=== PATIENT | female | born 1955 | race Caucasian/White ===

== ENCOUNTER 2017-10-03 20:31 | Inpatient (IN) | payer MEDICAID ==
[~2017-10-03] VITALS: Ht 154.9 cm; Wt 74.6 kg
--- NOTE | 2017-10-03 21:08 | Emergency Room Report ---
History of Present Illness General Chief Complaint: Female Urogenital Problems Source: Patient Present Illness HPI Is a 62-year-old female with history of fibromyalgia. She presents with chief complaint of feeling sick. This been ongoing for over 5 weeks. She complaining of hurting all over. Increasing pain. Said she hasn't eaten anything all day. No chest pain. No nausea no vomiting. Also complaining of fluid in her legs. She was given doxycycline and finished that off already. She's been taking multitude of vitamins and stpa-rcu-arzeaue supplements based on the rectum patient from her [facility]. No fever or chills. No nausea no vomiting. No shortness of breath. Allergies: Coded Allergies: UNABLE TO ASSESS (Unverified , 10/03/17) Patient History Past Medical History: see triage record, old chart reviewed Past Surgical History: other Social History: Denies: smoking Now: No Immunizations: other Reviewed Nursing Documentation: PMH: Agreed; PSxH: Agreed Nursing Documentation-PMH Past Medical History: No Stated History Review of Systems Constitutional: Reports: weakness Eye: Denies: eye pain, blurred vision ENT: Denies: ear pain, nose congestion, throat swelling Respiratory: Denies: cough, shortness of breath Cardiovascular: Denies: chest pain, palpitations Gastrointestinal: Denies: abdominal pain, diarrhea, nausea, vomiting Musculoskeletal: Denies: back pain, joint pain Skin: Denies: rash Neurological: Denies: headache, numbness Endocrine: Denies: increased thirst, increased urine Hematologic/Lymphatic: Denies: easy bruising All Other Systems: negative except mentioned in HPI Physical Exam Vital Signs Date Time Temp Pulse Resp B/P (MAP) Pulse Ox O2 Delivery O2 Flow Rate FiO2 10/03/17 20:45 97.8 113 18 176/91 94 Room Air 97.9 vitals with high blood pressure Sp02 EP Interpretation: reviewed, normal General Appearance: well appearing, no apparent distress, alert Head: normocephalic, atraumatic Eyes: bilateral eye PERRL, bilateral eye EOMI, bilateral eye scleral icterus ENT: hearing grossly normal, normal pharynx Neck: full range of motion, supple, no meningismus Respiratory: chest non-tender, lungs clear, normal breath sounds Cardiovascular #1: regular rate, rhythm, no murmur Gastrointestinal: normal bowel sounds, non tender, no mass, no organomegaly, no bruit, non-distended Musculoskeletal: back normal, gait/station normal, normal range of motion, swelling - 1+ pitting edema bilaterally Neurologic: alert, oriented x3 Psychiatric: anxious Skin: warm/dry Medical Decision Making Diagnostic Impression: Primary Impression: Acute exacerbation of CHF (congestive heart failure) Qualified Codes: I50.9 - Heart failure, unspecified Additional Impressions: UTI (urinary tract infection) Qualified Codes: N30.00 - Acute cystitis without hematuria New onset type 2 diabetes mellitus Proteinuria Qualified Codes: R80.9 - Proteinuria, unspecified Anasarca Jaundice ER Course Patient presents with increasing edema consistent with CHF. He also has new- onset diabetes. Troponin negative. Has been ongoing for several weeks. I also noticed that her eyes are very icterus. LFTs abnormal. She has no pain. CT scan pending. This may be secondary to gallbladder mass/tumor or pancreatic cancer. I discussed the case with Dr. Flores who will admit. Lab Results Impression labs with elevated glucose and BNP EKG Diagnostic Results Rate: tachycardiac Rhythm: NSR ST Segments: no acute changes Rhythm Strip Diag. Results Rhythm Strip Time: 00:02 EP Interpretation: yes Rate: 100 Rhythm: NSR, no PVC's, no ectopy Chest X-Ray Diagnostic Results Chest X-Ray Diagnostic Results : Chest X-Ray Ordered: Yes # of Views/Limited/Complete: 1 View Indication: Shortness of Breath EP Interpretation: Yes Interpretation: no consolidation, no effusion, no pneumothorax, other - vasc congestion Impression: Other - chf CT/MRI/US Diagnostic Results CT/MRI/US Diagnostic Results : Imaging Test Ordered: ct ABDOMEN AND PELVIS Impression Read by radiologist. Bilateral pleural effusion. Anasarca. Last Vital Signs Date Time Temp Pulse Resp B/P (MAP) Pulse Ox O2 Delivery O2 Flow Rate FiO2 10/03/17 20:45 97.8 113 18 176/91 94 Room Air 97.9 Status: improved Disposition: ADMITTED INPATIENT Condition: Serious Scripts No Active Prescriptions or Reported Meds CAROL ANN NGUYEN M.D. Oct 03, 2017 21:08
[2017-10-03 21:30] VITALS: BP 143/82
[2017-10-03 21:48] LABS: ANION GAP 7 mmol/L (5-15); BLOOD UREA NITROGEN 14 mg/dL (7-18); CALCIUM 8.3 MG/DL (8.5-10.1); CARBON DIOXIDE 28 MMOL/L (21-32); CHLORIDE 94 MMOL/L (98-107); CREATININE 0.5 MG/DL (0.55-1.30); POTASSIUM 3.6 MMOL/L (3.5-5.1); SODIUM 129 MMOL/L (136-145)
[2017-10-03 22:04] LABS: BASOPHILS % (AUTO) 1.5 % (0.0-2.0); EOSINOPHILS % (AUTO) 0.2 % (0.0-3.0); HEMOGLOBIN 15.7 G/DL (12.0-16.0); LYMPHOCYTES % (AUTO) 16.9 % (20.0-45.0); MEAN CORPUSCULAR VOLUME 97 FL (80-99); MONOCYTES % (AUTO) 8.4 % (1.0-10.0); PLATELET COUNT 171 K/UL (150-450); RED BLOOD COUNT 5.03 M/UL (4.20-5.40); RED CELL DISTRIBUTION WIDTH 15.1 % (11.6-14.8); WHITE BLOOD COUNT 11.8 K/UL (4.8-10.8)
[2017-10-03 22:13] LABS: APPEARANCE,URINE SLIGHTLY CLOUDY; BILIRUBIN, URINE 3+ (NEGATIVE); COLOR,URINE BROWN; GLUCOSE, URINE (UA) 4+ (NEGATIVE); KETONES,URINE NEGATIVE (NEGATIVE); LEUKOCYTE ESTERASE ,URINE 3+ (NEGATIVE); NITRITE,URINE NEGATIVE (NEGATIVE); PH,URINE 5 (4.5-8.0); PROTEIN,URINE 3+ (NEGATIVE); UROBILINOGEN,URINE 8 MG/DL (0.0-1.0)
[2017-10-03] MEDS ORDERED: cefTRIAXone 1 GM in NS 55 ML IVPB ONE (22:45)
[2017-10-03 23:00] VITALS: BP 158/81
[2017-10-03 23:15] LABS: ALANINE AMINOTRANSFERASE 214 U/L (12-78); ALBUMIN 2.1 G/DL (3.4-5.0); ALKALINE PHOSPHATASE 905 U/L (46-116); ASPARTATE AMINO TRANSFERASE 99 U/L (15-37); BILIRUBIN,DIRECT 9.8 MG/DL (0.0-0.3)
[2017-10-03] MEDS ORDERED: Isovue-300 100ml vial INJ PRN (23:45)
[2017-10-04] VITALS (7 sets, daily range): BP systolic 135–165; BP diastolic 75–104
[2017-10-04] MEDS: NovoLOG Insulin Flexpen SUBQ SCH ×7 (05:39→20:36)
--- NOTE | 2017-10-04 06:26 | General Progress Note ---
Assessment/Plan Problem List: (1) Jaundice ICD Codes: R17 - Unspecified jaundice SNOMED: 24410478 (2) New onset type 2 diabetes mellitus ICD Codes: E11.9 - Type 2 diabetes mellitus without complications SNOMED: 73953899 (3) Acute exacerbation of CHF (congestive heart failure) ICD Codes: I50.9 - Heart failure, unspecified SNOMED: 83427400 Qualifiers: Qualified Codes: I50.9 - Heart failure, unspecified (4) UTI (urinary tract infection) ICD Codes: N39.0 - Urinary tract infection, site not specified SNOMED: 92985441 Qualifiers: Qualified Codes: N30.00 - Acute cystitis without hematuria (5) Proteinuria ICD Codes: R80.9 - Proteinuria, unspecified SNOMED: 70562369 Qualifiers: Qualified Codes: R80.9 - Proteinuria, unspecified Assessment/Plan start Levemir 12 units daily start Novolog 4 units ac tid continue NISS Subjective Allergies: Coded Allergies: UNABLE TO ASSESS (Unverified , 10/03/17) All Systems: reviewed and negative except above Subjective Is a 62-year-old female with history of fibromyalgia. She presents with chief complaint of feeling sick. This been ongoing for over 5 weeks. She complaining of hurting all over. Increasing pain. Said she hasn't eaten anything all day. No chest pain. No nausea no vomiting. Also complaining of fluid in her legs. She was given doxycycline and finished that off already. She's been taking multitude of vitamins and nrsx-zhr-mvdlrws supplements based on the rectum patient from her landlord. No fever or chills. No nausea no vomiting. No shortness of breath. glucose noted to be elevated no prior hx of DM no evidence of DKA on presentation Objective Last 24 Hour Vital Signs Date Time Temp Pulse Resp B/P (MAP) Pulse Ox O2 Delivery O2 Flow Rate FiO2 10/04/17 03:47 97 10/04/17 02:27 165/104 10/04/17 01:47 Room Air 10/04/17 01:33 97.0 114 20 165/104 (124) 95 97.0 10/04/17 01:15 98.0 102 18 148/83 97 Room Air 98.0 10/04/17 01:00 98.0 102 18 148/83 97 Room Air 98.0 10/03/17 23:00 98.0 106 18 158/81 96 Room Air 98.0 10/03/17 21:30 97.9 105 18 143/82 94 Room Air 97.9 10/03/17 20:45 97.8 113 18 176/91 94 Room Air 97.9 Intake and Output 10/03/17 10/04/17 19:00 07:00 Intake Total 240 ml Balance 240 ml Intake Oral 240 ml Laboratory Tests 10/03/17 21:15: White Blood Count 11.8H, Red Blood Count 5.03, Hemoglobin 15.7, Hematocrit 49.0H , Mean Corpuscular Volume 97, Mean Corpuscular Hemoglobin 31.3H, Mean Corpuscular Hemoglobin Concent 32.1, Red Cell Distribution Width 15.1H, Platelet Count 171, Mean Platelet Volume 9.0, Neutrophils (%) (Auto) 73.0, Lymphocytes (%) (Auto) 16.9L, Monocytes (%) (Auto) 8.4, Eosinophils (%) (Auto) 0.2, Basophils (%) (Auto) 1.5, Sodium Level 129L, Potassium Level 3.6, Chloride Level 94L, Carbon Dioxide Level 28, Anion Gap 7, Blood Urea Nitrogen 14, Creatinine 0.5L, Estimat Glomerular Filtration Rate > 60, Glucose Level 282H, Calcium Level 8.3L, Total Bilirubin 13.0H, Direct Bilirubin 9.8H, Aspartate Amino Transf (AST/SGOT) 99H, Alanine Aminotransferase (ALT/SGPT) 214H, Alkaline Phosphatase 905H, Troponin I 0.000, Pro-B-Type Natriuretic Peptide 2539H, Total Protein 6.0L, Albumin 2.1L 10/03/17 21:25: Urine Color Brown, Urine Appearance Slightly cloudy, Urine pH 5, Urine Specific [place] 1.020, Urine Protein 3+H, Urine Glucose (UA) 4+H, Urine Ketones Negative , Urine Occult Blood 5+H, Urine Nitrite Negative, Urine Bilirubin 3+H, Urine Ictotest Positive, Urine Urobilinogen 8H, Urine Leukocyte Esterase 3+H, Urine RBC 10-15H, Urine WBC 5-10H, Urine Squamous Epithelial Cells Few, Urine Amorphous Sediment FewH, Urine Bacteria ModerateH, Urine Yeast FewH Height (Feet): 5 Height (Inches): 1.00 Weight (Pounds): 164 General Appearance: no apparent distress EENT: scleral icterus Neck: normal alignment Cardiovascular: normal peripheral pulses Respiratory/Chest: lungs clear Abdomen: normal bowel sounds Pelvis: normal external exam Edema: no edema noted Arm (L), no edema noted Arm (R), no edema noted Leg (L), no edema noted Leg (R), no edema noted Pedal (L), no edema noted Pedal (R), no edema noted Generalized Objective Current Medications Medications (Trade) Dose Ordered Sig/Dutch Route PRN Reason Start Time Stop Time Status Last Admin Dose Admin Clonidine HCl (Catapres Tab) 0.1 mg Q4H PRN ORAL For High Blood Pressure 10/04/17 02:15 11/03/17 02:14 10/04/17 02:27 Dextrose (Dextrose 50%) 25 ml STAT PRN IV Hypoglycemia 10/04/17 00:30 11/03/17 00:29 Dextrose (Dextrose 50%) 50 ml STAT PRN IV Hypoglycemia 10/04/17 00:30 11/03/17 00:29 Ibuprofen (Motrin) 400 mg Q6H PRN ORAL For Pain 10/04/17 00:30 11/03/17 00:29 10/04/17 01:58 Insulin Aspart (NovoLOG) BEFORE MEALS AND HS SUBQ 10/04/17 06:30 11/03/17 06:29 10/04/17 05:39 Iopamidol (Isovue-300 100ml) 100 ml NOW PRN INJ Radiology Procedure 10/03/17 23:45 Item Value Date Time Bedside Blood Glucose 312 mg/dl H 10/04/17 0539 Rad Mccarthy MD Oct 04, 2017 06:26
[2017-10-04 07:43] LABS: BASOPHILS % (AUTO) 0.9 % (0.0-2.0); EOSINOPHILS % (AUTO) 0.7 % (0.0-3.0); HEMATOCRIT 44.1 % (37.0-47.0); HEMOGLOBIN 14.6 G/DL (12.0-16.0); LYMPHOCYTES % (AUTO) 22.6 % (20.0-45.0); MEAN CORPUSCULAR VOLUME 96 FL (80-99); MONOCYTES % (AUTO) 8.3 % (1.0-10.0); NEUTROPHILS % (AUTO) 67.6 % (45.0-75.0); PLATELET COUNT 178 K/UL (150-450); RED BLOOD COUNT 4.62 M/UL (4.20-5.40); WHITE BLOOD COUNT 9.8 K/UL (4.8-10.8)
[2017-10-04 08:11] LABS: ALANINE AMINOTRANSFERASE 183 U/L (12-78); ALBUMIN 1.7 G/DL (3.4-5.0); ALBUMIN/GLOBULIN RATIO 0.5 (1.0-2.7); ALKALINE PHOSPHATASE 801 U/L (46-116); ANION GAP 6 mmol/L (5-15); ASPARTATE AMINO TRANSFERASE 97 U/L (15-37); BILIRUBIN,TOTAL 12.5 MG/DL (0.2-1.0); BLOOD UREA NITROGEN 14 mg/dL (7-18); CARBON DIOXIDE 30 MMOL/L (21-32); CHLORIDE 98 MMOL/L (98-107); CREATININE 0.5 MG/DL (0.55-1.30); POTASSIUM 3.2 MMOL/L (3.5-5.1); SODIUM 133 MMOL/L (136-145)
[2017-10-04 08:13] LABS: BILIRUBIN,DIRECT 10.2 MG/DL (0.0-0.3)
--- NOTE | 2017-10-04 08:17 | Cardiology Progress Note ---
Assessment/Plan Assessment/Plan The patient is seen and examined, full consult note is dictated. Objective Last 24 Hour Vital Signs Date Time Temp Pulse Resp B/P (MAP) Pulse Ox O2 Delivery O2 Flow Rate FiO2 10/04/17 08:10 97.4 96 19 147/83 (104) 97 97.4 10/04/17 04:00 99.0 100 18 135/75 (95) 95 99.0 10/04/17 03:47 97 10/04/17 02:27 165/104 10/04/17 01:47 Room Air 10/04/17 01:33 97.0 114 20 165/104 (124) 95 97.0 10/04/17 01:15 98.0 102 18 148/83 97 Room Air 98.0 10/04/17 01:00 98.0 102 18 148/83 97 Room Air 98.0 10/03/17 23:00 98.0 106 18 158/81 96 Room Air 98.0 10/03/17 21:30 97.9 105 18 143/82 94 Room Air 97.9 10/03/17 20:45 97.8 113 18 176/91 94 Room Air 97.9 Intake and Output 10/03/17 10/04/17 18:59 06:59 Intake Total 240 ml Balance 240 ml Intake Oral 240 ml Laboratory Tests Test 10/03/17 21:15 10/03/17 21:25 10/04/17 06:50 White Blood Count 11.8 K/UL (4.8-10.8) H 9.8 K/UL (4.8-10.8) Red Blood Count 5.03 M/UL (4.20-5.40) 4.62 M/UL (4.20-5.40) Hemoglobin 15.7 G/DL (12.0-16.0) 14.6 G/DL (12.0-16.0) Hematocrit 49.0 % (37.0-47.0) H 44.1 % (37.0-47.0) Mean Corpuscular Volume 97 FL (80-99) 96 FL (80-99) Mean Corpuscular Hemoglobin 31.3 PG (27.0-31.0) H 31.6 PG (27.0-31.0) H Mean Corpuscular Hemoglobin Concent 32.1 G/DL (32.0-36.0) 33.0 G/DL (32.0-36.0) Red Cell Distribution Width 15.1 % (11.6-14.8) H 15.0 % (11.6-14.8) H Platelet Count 171 K/UL (150-450) 178 K/UL (150-450) Mean Platelet Volume 9.0 FL (6.5-10.1) 9.3 FL (6.5-10.1) Neutrophils (%) (Auto) 73.0 % (45.0-75.0) 67.6 % (45.0-75.0) Lymphocytes (%) (Auto) 16.9 % (20.0-45.0) L 22.6 % (20.0-45.0) Monocytes (%) (Auto) 8.4 % (1.0-10.0) 8.3 % (1.0-10.0) Eosinophils (%) (Auto) 0.2 % (0.0-3.0) 0.7 % (0.0-3.0) Basophils (%) (Auto) 1.5 % (0.0-2.0) 0.9 % (0.0-2.0) Sodium Level 129 MMOL/L (136-145) L 133 MMOL/L (136-145) L Potassium Level 3.6 MMOL/L (3.5-5.1) 3.2 MMOL/L (3.5-5.1) L Chloride Level 94 MMOL/L (98-107) L 98 MMOL/L (98-107) Carbon Dioxide Level 28 MMOL/L (21-32) 30 MMOL/L (21-32) Anion Gap 7 mmol/L (5-15) 6 mmol/L (5-15) Blood Urea Nitrogen 14 mg/dL (7-18) 14 mg/dL (7-18) Creatinine 0.5 MG/DL (0.55-1.30) L 0.5 MG/DL (0.55-1.30) L Estimat Glomerular Filtration Rate > 60 mL/min (>60) > 60 mL/min (>60) Glucose Level 282 MG/DL (74-106) H 229 MG/DL (74-106) H Calcium Level 8.3 MG/DL (8.5-10.1) L 8.0 MG/DL (8.5-10.1) L Total Bilirubin 13.0 MG/DL (0.2-1.0) H 12.5 MG/DL (0.2-1.0) H Direct Bilirubin 9.8 MG/DL (0.0-0.3) H 10.2 MG/DL (0.0-0.3) H Aspartate Amino Transf (AST/SGOT) 99 U/L (15-37) H 97 U/L (15-37) H Alanine Aminotransferase (ALT/SGPT) 214 U/L (12-78) H 183 U/L (12-78) H Alkaline Phosphatase 905 U/L (46-116) H 801 U/L (46-116) H Troponin I 0.000 ng/mL (0.000-0.056) Pending Pro-B-Type Natriuretic Peptide 2539 pg/mL (0-125) H Total Protein 6.0 G/DL (6.4-8.2) L 5.2 G/DL (6.4-8.2) L Albumin 2.1 G/DL (3.4-5.0) L 1.7 G/DL (3.4-5.0) L Urine Color Brown Urine Appearance Slightly cloudy Urine pH 5 (4.5-8.0) Urine Specific [place] 1.020 (1.005-1.035) Urine Protein 3+ (NEGATIVE) H Urine Glucose (UA) 4+ (NEGATIVE) H Urine Ketones Negative (NEGATIVE) Urine Occult Blood 5+ (NEGATIVE) H Urine Nitrite Negative (NEGATIVE) Urine Bilirubin 3+ (NEGATIVE) H Urine Ictotest Positive (NEGATIVE) Urine Urobilinogen 8 MG/DL (0.0-1.0) H Urine Leukocyte Esterase 3+ (NEGATIVE) H Urine RBC 10-15 /HPF (0 - 2) H Urine WBC 5-10 /HPF (0 - 2) H Urine Squamous Epithelial Cells Few /LPF (NONE/OCC) Urine Amorphous Sediment Few /LPF (NONE) H Urine Bacteria Moderate /HPF (NONE) H Urine Yeast Few /HPF (NONE) H Hemoglobin A1c Pending Globulin 3.5 g/dL Albumin/Globulin Ratio 0.5 (1.0-2.7) L Malik Perez MD Oct 04, 2017 08:17
[2017-10-04] MEDS ORDERED: Enalapril 2.5mg tab ORAL SCH (09:00)
[2017-10-04] MEDS: Levemir Flexpen SUBQ SCH (09:30)
--- NOTE | 2017-10-04 10:48 | Diagnostic Imaging Report ---
Clinical Indication: Abdominal pain for 3 days, markedly abnormal liver function tests Technique: No oral contrast utilized, per emergency room physician request IV administration nonionic contrast. Venous phase spiral acquisition obtained through the abdomen and pelvis. Multiplanar reconstructions were generated. Total dose length product 726.47 mGycm. CTDIvol(s) 14.79 mGy. Dose reduction achieved using automated exposure control Comparison: none Findings: Gallbladder is nondistended. No definite stones or wall thickening. No biliary ductal dilatation demonstrated. The liver is unremarkable. No focal abnormality or significant contour abnormality. The pancreas appears unremarkable. Some prominent nodes are seen in the peripancreatic region, measuring up to 2.5 cm in diameter. The spleen, adrenals, kidneys are unremarkable. There are prominent and abundant but not frankly enlarged retroperitoneal nodes. No mesenteric mass or adenopathy. No pelvic mass or adenopathy. The uterus and adnexal structures are unremarkable. There is generalized edema of the subcutaneous fat. There are bilateral pleural effusions, moderate to large on the right, small on the left. This results in compressive atelectasis of a portion of the right lower lobe. There is also some atelectasis of portions of the left lower lobe. The heart is enlarged. There is a pericardial effusion which measures up to 10 mm thick. The appendix is normal. There is no evidence of diverticulosis or diverticulitis. No small bowel distention. No free or loculated intraperitoneal air or fluid is evident. The distal esophagus, stomach, duodenum are unremarkable. The bones are unremarkable. Impression: Evidence of anasarca, with generalized edema of the subcutaneous fat, bilateral right greater than left pleural effusions, pericardial effusion Cardiomegaly No acute abdominal or pelvic process otherwise No biliary ductal dilatation or abnormalities of hepatic morphology or contrast enhancement to suggest etiology of stated clinical history of abnormal liver function tests Prominent peripancreatic node, significance uncertain This agrees with the preliminary interpretation provided overnight by [facility] teleradiology service. The CT scanner at [facility] is accredited by the [employer] and the scans are performed using protocols designed to limit radiation exposure to as low as reasonably achievable to attain images of sufficient resolution adequate for diagnostic evaluation.
--- NOTE | 2017-10-04 10:51 | Consultation ---
Consult Note Consult Note Is a 62-year-old female with history of fibromyalgia. She presents with chief complaint of feeling sick. This been ongoing for over 5 weeks. She complaining of hurting all over. Increasing pain. Said she hasn't eaten anything all day. No chest pain. No nausea no vomiting. Also complaining of fluid in her legs. She was given doxycycline and finished that off already. She's been taking multitude of vitamins and fwfw-pmu-rjprbjc supplements based on the rectum patient from her landlord. No fever or chills. No nausea no vomiting. No shortness of breath. Assessment/Plan Patient has Proteinuria and Hypoalbuminemia admitted with: Acute exacerbation of CHF (congestive heart failure) Has UTI (urinary tract infection) New onset type 2 diabetes mellitus Anasarca , Jaundice Likely Cirrhosis Adjust BP meds- Optimize cardiac status- GI advise- Keep BS in check slow diuresis 2D echo- Kidney HUNG per orders Bryan Scanlon MD Oct 04, 2017 10:51
--- NOTE | 2017-10-04 10:57 | Consultation ---
History of Present Illness General Date patient seen: Oct 04, 2017 Chief Complaint: Female Urogenital Problems Present Illness HPI 62-year-old female with history of fibromyalgia, depression and anxiety. The pt presents with chief complaint of feeling sick. The pt has depressed mood, anhedonia and low energy. she stated that she has whole body pain. the pt denied si/hi. the pt was reluctant to treatment however she was told that the medication will be offered to her. Allergies: Coded Allergies: UNABLE TO ASSESS (Unverified , 10/03/17) Medication History No Active Prescriptions or Reported Meds Patient History Limited by: medical condition History Provided By: Patient, Medical Record, PMD Healthcare decision maker Resuscitation status Full Code Advanced Directive on File No Past Medical/Surgical History Past Medical/Surgical History: (1) Proteinuria (2) UTI (urinary tract infection) (3) Jaundice (4) Acute exacerbation of CHF (congestive heart failure) (5) New onset type 2 diabetes mellitus Family History Family History: (1) Proteinuria (2) UTI (urinary tract infection) (3) Jaundice (4) Acute exacerbation of CHF (congestive heart failure) (5) New onset type 2 diabetes mellitus Review of Systems Psychiatric: Reports: prior hx, anxiety, depressed feelings, emotional problems Physical Exam General Appearance: no apparent distress, alert Neurologic: oriented x 3, responsive, depressed affect Last 24 Hour Vital Signs Date Time Temp Pulse Resp B/P (MAP) Pulse Ox O2 Delivery O2 Flow Rate FiO2 10/04/17 10:20 Room Air 10/04/17 09:28 96 147/83 10/04/17 09:28 147/83 10/04/17 08:10 97.4 96 19 147/83 (104) 97 97.4 10/04/17 08:00 92 10/04/17 04:00 99.0 100 18 135/75 (95) 95 99.0 10/04/17 03:47 97 10/04/17 02:27 165/104 10/04/17 01:47 Room Air 10/04/17 01:33 97.0 114 20 165/104 (124) 95 97.0 10/04/17 01:15 98.0 102 18 148/83 97 Room Air 98.0 10/04/17 01:00 98.0 102 18 148/83 97 Room Air 98.0 10/03/17 23:00 98.0 106 18 158/81 96 Room Air 98.0 10/03/17 21:30 97.9 105 18 143/82 94 Room Air 97.9 10/03/17 20:45 97.8 113 18 176/91 94 Room Air 97.9 Intake and Output 10/03/17 10/04/17 19:00 07:00 Intake Total 240 ml Balance 240 ml Intake Oral 240 ml Laboratory Tests Test 10/03/17 21:15 10/03/17 21:25 10/04/17 06:50 White Blood Count 11.8 K/UL (4.8-10.8) H 9.8 K/UL (4.8-10.8) Red Blood Count 5.03 M/UL (4.20-5.40) 4.62 M/UL (4.20-5.40) Hemoglobin 15.7 G/DL (12.0-16.0) 14.6 G/DL (12.0-16.0) Hematocrit 49.0 % (37.0-47.0) H 44.1 % (37.0-47.0) Mean Corpuscular Volume 97 FL (80-99) 96 FL (80-99) Mean Corpuscular Hemoglobin 31.3 PG (27.0-31.0) H 31.6 PG (27.0-31.0) H Mean Corpuscular Hemoglobin Concent 32.1 G/DL (32.0-36.0) 33.0 G/DL (32.0-36.0) Red Cell Distribution Width 15.1 % (11.6-14.8) H 15.0 % (11.6-14.8) H Platelet Count 171 K/UL (150-450) 178 K/UL (150-450) Mean Platelet Volume 9.0 FL (6.5-10.1) 9.3 FL (6.5-10.1) Neutrophils (%) (Auto) 73.0 % (45.0-75.0) 67.6 % (45.0-75.0) Lymphocytes (%) (Auto) 16.9 % (20.0-45.0) L 22.6 % (20.0-45.0) Monocytes (%) (Auto) 8.4 % (1.0-10.0) 8.3 % (1.0-10.0) Eosinophils (%) (Auto) 0.2 % (0.0-3.0) 0.7 % (0.0-3.0) Basophils (%) (Auto) 1.5 % (0.0-2.0) 0.9 % (0.0-2.0) Sodium Level 129 MMOL/L (136-145) L 133 MMOL/L (136-145) L Potassium Level 3.6 MMOL/L (3.5-5.1) 3.2 MMOL/L (3.5-5.1) L Chloride Level 94 MMOL/L (98-107) L 98 MMOL/L (98-107) Carbon Dioxide Level 28 MMOL/L (21-32) 30 MMOL/L (21-32) Anion Gap 7 mmol/L (5-15) 6 mmol/L (5-15) Blood Urea Nitrogen 14 mg/dL (7-18) 14 mg/dL (7-18) Creatinine 0.5 MG/DL (0.55-1.30) L 0.5 MG/DL (0.55-1.30) L Estimat Glomerular Filtration Rate > 60 mL/min (>60) > 60 mL/min (>60) Glucose Level 282 MG/DL (74-106) H 229 MG/DL (74-106) H Calcium Level 8.3 MG/DL (8.5-10.1) L 8.0 MG/DL (8.5-10.1) L Total Bilirubin 13.0 MG/DL (0.2-1.0) H 12.5 MG/DL (0.2-1.0) H Direct Bilirubin 9.8 MG/DL (0.0-0.3) H 10.2 MG/DL (0.0-0.3) H Aspartate Amino Transf (AST/SGOT) 99 U/L (15-37) H 97 U/L (15-37) H Alanine Aminotransferase (ALT/SGPT) 214 U/L (12-78) H 183 U/L (12-78) H Alkaline Phosphatase 905 U/L (46-116) H 801 U/L (46-116) H Troponin I 0.000 ng/mL (0.000-0.056) 0.002 ng/mL (0.000-0.056) Pro-B-Type Natriuretic Peptide 2539 pg/mL (0-125) H Total Protein 6.0 G/DL (6.4-8.2) L 5.2 G/DL (6.4-8.2) L Albumin 2.1 G/DL (3.4-5.0) L 1.7 G/DL (3.4-5.0) L Urine Color Brown Urine Appearance Slightly cloudy Urine pH 5 (4.5-8.0) Urine Specific [place] 1.020 (1.005-1.035) Urine Protein 3+ (NEGATIVE) H Urine Glucose (UA) 4+ (NEGATIVE) H Urine Ketones Negative (NEGATIVE) Urine Occult Blood 5+ (NEGATIVE) H Urine Nitrite Negative (NEGATIVE) Urine Bilirubin 3+ (NEGATIVE) H Urine Ictotest Positive (NEGATIVE) Urine Urobilinogen 8 MG/DL (0.0-1.0) H Urine Leukocyte Esterase 3+ (NEGATIVE) H Urine RBC 10-15 /HPF (0 - 2) H Urine WBC 5-10 /HPF (0 - 2) H Urine Squamous Epithelial Cells Few /LPF (NONE/OCC) Urine Amorphous Sediment Few /LPF (NONE) H Urine Bacteria Moderate /HPF (NONE) H Urine Yeast Few /HPF (NONE) H Hemoglobin A1c 8.7 % (4.3-6.0) H Magnesium Level 1.9 MG/DL (1.8-2.4) Globulin 3.5 g/dL Albumin/Globulin Ratio 0.5 (1.0-2.7) L Anti-Nuclear Antibody Screen Pending Height (Feet): 5 Height (Inches): 1.00 Weight (Pounds): 164 Medications Current Medications Medications (Trade) Dose Ordered Sig/Dutch Route PRN Reason Start Time Stop Time Status Last Admin Dose Admin Carvedilol (Coreg) 3.125 mg EVERY 12 HOURS ORAL 10/04/17 09:00 11/03/17 08:59 10/04/17 09:28 Clonidine HCl (Catapres Tab) 0.1 mg Q4H PRN ORAL For High Blood Pressure 10/04/17 02:15 11/03/17 02:14 10/04/17 02:27 Dextrose (Dextrose 50%) 25 ml STAT PRN IV Hypoglycemia 10/04/17 06:30 11/03/17 06:29 Dextrose (Dextrose 50%) 50 ml STAT PRN IV Hypoglycemia 10/04/17 06:30 11/03/17 06:29 Enalapril Maleate (Vasotec) 2.5 mg EVERY 12 HOURS ORAL 10/04/17 09:00 11/03/17 08:59 10/04/17 09:28 Furosemide (Lasix) 20 mg DAILY IV 10/04/17 09:00 11/03/17 08:59 10/04/17 09:29 Insulin Aspart (NovoLOG) BEFORE MEALS AND HS SUBQ 10/04/17 06:30 11/03/17 06:29 10/04/17 05:39 Insulin Aspart (NovoLOG) 4 units NOVOTIAC SUBQ 10/04/17 07:00 11/03/17 06:59 10/04/17 06:59 Insulin Detemir (Levemir) 12 units DAILY SUBQ 10/04/17 09:00 11/03/17 08:59 10/04/17 09:30 Iopamidol (Isovue-300 100ml) 100 ml NOW PRN INJ Radiology Procedure 10/03/17 23:45 Potassium Chloride (K-Dur) 40 meq ONCE ORAL 10/04/17 08:45 10/04/17 12:00 10/04/17 09:32 Tramadol HCl (Ultram) 25 mg Q6H PRN ORAL severe pain 10/04/17 10:00 10/11/17 09:59 Assessment/Plan Status: stable, progressing Assessment/Plan MDD Anxiety d/o start Cymbalta 30mg po q daily. provided ro/Rodrigo Knapp MD Oct 04, 2017 10:57
[2017-10-04] MEDS ORDERED: HydrALAZINE 25mg tab ORAL PRN (11:00)
[2017-10-04] MEDS ORDERED: Spironolactone 25mg tab ORAL SCH (11:00)
[2017-10-04 11:41] LABS: ANION GAP 12 mmol/L (5-15); BLOOD UREA NITROGEN 14 mg/dL (7-18); CALCIUM 8.2 MG/DL (8.5-10.1); CARBON DIOXIDE 23 MMOL/L (21-32); CHLORIDE 94 MMOL/L (98-107); CREATININE 0.5 MG/DL (0.55-1.30); POTASSIUM 3.8 MMOL/L (3.5-5.1); SODIUM 129 MMOL/L (136-145)
--- NOTE | 2017-10-04 11:47 | Diagnostic Imaging Report ---
. Indication: Shortness of breath Technique: One view of the chest Comparison: none Findings: The heart is enlarged. There is diffuse bilateral interstitial edema, probably with some airspace edema as well. There are probably small bilateral pleural effusions. Impression: Cardiomegaly, with evidence of congestive heart failure
--- NOTE | 2017-10-04 11:48 | GI Initial Consult Note ---
History of Present Illness General Date patient seen: Oct 04, 2017 Time patient seen: 13:45 Reason for Hospitalization: Female Urogenital Problems Referring physician: JUAN Reason for Consultation: ABNORMAL LFTs Present Illness HPI Is a 62-year-old female with history of fibromyalgia. She presents with chief complaint of feeling sick. This been ongoing for over 5 weeks. She complaining of hurting all over. Increasing pain. Said she hasn't eaten anything all day. No chest pain. No nausea no vomiting. Also complaining of fluid in her legs. She was given doxycycline and finished that off already. She's been taking multitude of vitamins and pjdu-flv-qeyakth supplements based [facility] No fever or chills. No nausea no vomiting. No shortness of breath. GI consulted for abnormal LFTs. Pt seen, awake A&Ox4 NAD has c/o of generalized weakness, distended abdomen and BLE edema. She presents today with abnormal LFTs, elevated HgA1C and hypoalbuminemia. CTAP shows patient with bilaterally pleural effusion. Denies any ETOH, IVDA or tobacco use. Denies any history of endoscopy / colonoscopy. Home Meds No Active Prescriptions or Reported Meds Med list reviewed/reconciled: Yes Allergies: Coded Allergies: UNABLE TO ASSESS (Unverified , 10/03/17) Patient History History Provided By: Patient, Medical Record PMH Narrative Past Medical History: see triage record, old chart reviewed Past Surgical History: other Social History: Denies: smoking Now: No Immunizations: other Reviewed Nursing Documentation: PMH: Agreed; PSxH: Agreed Nursing Documentation-PM Past Medical History: No Stated History Social History: Denies: smoking, alcohol use, drug use, other Review of Systems All Other Systems: negative except mentioned in HPI Physical Exam Vital Signs Date Time Temp Pulse Resp B/P (MAP) Pulse Ox O2 Delivery O2 Flow Rate FiO2 10/03/17 20:45 97.8 113 18 176/91 94 Room Air 97.9 Sp02 EP Interpretation: reviewed, normal Labs Laboratory Tests Test 10/03/17 21:15 10/03/17 21:25 10/04/17 06:50 10/04/17 10:52 White Blood Count 11.8 K/UL (4.8-10.8) H 9.8 K/UL (4.8-10.8) Red Blood Count 5.03 M/UL (4.20-5.40) 4.62 M/UL (4.20-5.40) Hemoglobin 15.7 G/DL (12.0-16.0) 14.6 G/DL (12.0-16.0) Hematocrit 49.0 % (37.0-47.0) H 44.1 % (37.0-47.0) Mean Corpuscular Volume 97 FL (80-99) 96 FL (80-99) Mean Corpuscular Hemoglobin 31.3 PG (27.0-31.0) H 31.6 PG (27.0-31.0) H Mean Corpuscular Hemoglobin Concent 32.1 G/DL (32.0-36.0) 33.0 G/DL (32.0-36.0) Red Cell Distribution Width 15.1 % (11.6-14.8) H 15.0 % (11.6-14.8) H Platelet Count 171 K/UL (150-450) 178 K/UL (150-450) Mean Platelet Volume 9.0 FL (6.5-10.1) 9.3 FL (6.5-10.1) Neutrophils (%) (Auto) 73.0 % (45.0-75.0) 67.6 % (45.0-75.0) Lymphocytes (%) (Auto) 16.9 % (20.0-45.0) L 22.6 % (20.0-45.0) Monocytes (%) (Auto) 8.4 % (1.0-10.0) 8.3 % (1.0-10.0) Eosinophils (%) (Auto) 0.2 % (0.0-3.0) 0.7 % (0.0-3.0) Basophils (%) (Auto) 1.5 % (0.0-2.0) 0.9 % (0.0-2.0) Sodium Level 129 MMOL/L (136-145) L 133 MMOL/L (136-145) L 129 MMOL/L (136-145) L Potassium Level 3.6 MMOL/L (3.5-5.1) 3.2 MMOL/L (3.5-5.1) L 3.8 MMOL/L (3.5-5.1) Chloride Level 94 MMOL/L (98-107) L 98 MMOL/L (98-107) 94 MMOL/L (98-107) L Carbon Dioxide Level 28 MMOL/L (21-32) 30 MMOL/L (21-32) 23 MMOL/L (21-32) Anion Gap 7 mmol/L (5-15) 6 mmol/L (5-15) 12 mmol/L (5-15) Blood Urea Nitrogen 14 mg/dL (7-18) 14 mg/dL (7-18) 14 mg/dL (7-18) Creatinine 0.5 MG/DL (0.55-1.30) L 0.5 MG/DL (0.55-1.30) L 0.5 MG/DL (0.55-1.30) L Estimat Glomerular Filtration Rate > 60 mL/min (>60) > 60 mL/min (>60) > 60 mL/min (>60) Glucose Level 282 MG/DL (74-106) H 229 MG/DL (74-106) H 276 MG/DL (74-106) H Calcium Level 8.3 MG/DL (8.5-10.1) L 8.0 MG/DL (8.5-10.1) L 8.2 MG/DL (8.5-10.1) L Total Bilirubin 13.0 MG/DL (0.2-1.0) H 12.5 MG/DL (0.2-1.0) H Direct Bilirubin 9.8 MG/DL (0.0-0.3) H 10.2 MG/DL (0.0-0.3) H Aspartate Amino Transf (AST/SGOT) 99 U/L (15-37) H 97 U/L (15-37) H Alanine Aminotransferase (ALT/SGPT) 214 U/L (12-78) H 183 U/L (12-78) H Alkaline Phosphatase 905 U/L (46-116) H 801 U/L (46-116) H Troponin I 0.000 ng/mL (0.000-0.056) 0.002 ng/mL (0.000-0.056) Pro-B-Type Natriuretic Peptide 2539 pg/mL (0-125) H Pending Total Protein 6.0 G/DL (6.4-8.2) L 5.2 G/DL (6.4-8.2) L Albumin 2.1 G/DL (3.4-5.0) L 1.7 G/DL (3.4-5.0) L Urine Color Brown Urine Appearance Slightly cloudy Urine pH 5 (4.5-8.0) Urine Specific [place] 1.020 (1.005-1.035) Urine Protein 3+ (NEGATIVE) H Urine Glucose (UA) 4+ (NEGATIVE) H Urine Ketones Negative (NEGATIVE) Urine Occult Blood 5+ (NEGATIVE) H Urine Nitrite Negative (NEGATIVE) Urine Bilirubin 3+ (NEGATIVE) H Urine Ictotest Positive (NEGATIVE) Urine Urobilinogen 8 MG/DL (0.0-1.0) H Urine Leukocyte Esterase 3+ (NEGATIVE) H Urine RBC 10-15 /HPF (0 - 2) H Urine WBC 5-10 /HPF (0 - 2) H Urine Squamous Epithelial Cells Few /LPF (NONE/OCC) Urine Amorphous Sediment Few /LPF (NONE) H Urine Bacteria Moderate /HPF (NONE) H Urine Yeast Few /HPF (NONE) H Hemoglobin A1c 8.7 % (4.3-6.0) H Magnesium Level 1.9 MG/DL (1.8-2.4) Globulin 3.5 g/dL Albumin/Globulin Ratio 0.5 (1.0-2.7) L Anti-Nuclear Antibody Screen Pending Uric Acid Pending Phosphorus Level Pending C-Reactive Protein, Quantitative Pending Triglycerides Level Pending Cholesterol Level Pending LDL Cholesterol Pending HDL Cholesterol Pending Cholesterol/HDL Ratio Pending Vitamin B12 Level Pending Thyroid Stimulating Hormone (TSH) Pending General Appearance: well appearing, no apparent distress, alert Head: normocephalic EENT: PERRL/EOMI, normal ENT inspection Neck: supple Respiratory: normal breath sounds, no respiratory distress Cardiovascular: normal rate Gastrointestinal: normal inspection, non tender, soft, normal bowel sounds, distended, ascites Rectal: deferred Genitourinary: no CVA tenderness Musculoskeletal: normal inspection, back normal Neurologic: normal inspection, alert, oriented x3, responsive Psychiatric: normal inspection, judgement/insight normal, memory normal Skin: normal inspection, normal color, no rash, warm/dry, palpation normal, well hydrated Lymphatic: normal inspection, no adenopathy Current Medications Current Medications Medications (Trade) Dose Ordered Sig/Dutch Route PRN Reason Start Time Stop Time Status Last Admin Dose Admin Carvedilol (Coreg) 6.25 mg EVERY 12 HOURS ORAL 10/04/17 21:00 11/03/17 08:59 Dextrose (Dextrose 50%) 25 ml STAT PRN IV Hypoglycemia 10/04/17 06:30 11/03/17 06:29 Dextrose (Dextrose 50%) 50 ml STAT PRN IV Hypoglycemia 10/04/17 06:30 11/03/17 06:29 Enalapril Maleate (Vasotec) 5 mg EVERY 12 HOURS ORAL 10/04/17 21:00 11/03/17 08:59 Famotidine (Pepcid) 20 mg BID ORAL 10/04/17 18:00 11/03/17 17:59 Furosemide (Lasix) 20 mg DAILY IV 10/04/17 09:00 11/03/17 08:59 10/04/17 09:29 Hydralazine HCl (Apresoline) 25 mg Q4H PRN ORAL SBP > 160 10/04/17 11:00 11/03/17 10:59 Insulin Aspart (NovoLOG) BEFORE MEALS AND HS SUBQ 10/04/17 06:30 11/03/17 06:29 10/04/17 05:39 Insulin Aspart (NovoLOG) 4 units NOVOTIAC SUBQ 10/04/17 07:00 11/03/17 06:59 10/04/17 06:59 Insulin Detemir (Levemir) 12 units DAILY SUBQ 10/04/17 09:00 11/03/17 08:59 10/04/17 09:30 Iopamidol (Isovue-300 100ml) 100 ml NOW PRN INJ Radiology Procedure 10/03/17 23:45 Potassium Chloride (K-Dur) 40 meq ONCE ORAL 10/04/17 08:45 10/04/17 12:00 10/04/17 09:32 Spironolactone (Aldactone) 25 mg DAILY ORAL 10/05/17 09:00 11/04/17 08:59 Spironolactone (Aldactone) 25 mg ONCE ORAL 10/04/17 11:00 10/04/17 12:00 Tramadol HCl (Ultram) 25 mg Q6H PRN ORAL severe pain 10/04/17 10:00 10/11/17 09:59 GI: Plan Problems: (1) LFT elevation (2) Jaundice (3) Acute exacerbation of CHF (congestive heart failure) Plan fu cardiology recs abdominal U/S, ok to resume diet after imaging study liver biopsy r/o autoimmune trend LFTs hep panel DM mgmt EDWARD, IgG ppi fu labs Discussed with Dr. Desai. Thank you for this patient referral, we will follow. The patient was seen and examined at bedside and all new and available data was reviewed in the patients chart. I agree with the above findings, impression and plan. (Patient seen earlier today. Signature stamp does not reflect patient encounter time.). - MD Key Orellaan,[facility] [place] [employer] Oct 04, 2017 11:48
[2017-10-04 11:55] LABS: CHOLESTEROL 540 MG/DL (< 200); HDL CHOLESTEROL 10 MG/DL (40-60); PHOSPHORUS 3.2 MG/DL (2.5-4.9); TRIGLYCERIDES 148 MG/DL (30-150)
--- NOTE | 2017-10-04 15:21 | Consultation ---
Consult Note Consult Note PULMONARY CONSULTATION DATE: 10/04/17 REFERRING PHYSICIAN: Antonia Flores MD REASON FOR CONSULTATION: Pleural effusion HISTORY: 62 F h/o FM p/w several weeks of fatigue noted to have DM, hypoalbuminemia, UTI, abnormal LFT's, CHF, anasarca and pleural effusions. She states that she drank heavily in her 20s but currently has 1 beer a day to sleep. + SOB no cough no wheezing no F/C + N no VD no D/C. PMH: FM PSH: None ALL: NKDA Active Scripts Medications Dose Route/Sig Max Daily Dose Days Date Category No Active Prescriptions or Reported Medications Rx SHx: No T/D use + one beer daily, denies other hx FHx: N/C ROS: Negative other than HPI PE: Last 24 Hour Vital Signs Date Time Temp Pulse Resp B/P (MAP) Pulse Ox O2 Delivery O2 Flow Rate FiO2 10/04/17 12:00 91 10/04/17 11:58 96.3 92 20 144/76 (98) 95 96.3 10/04/17 10:20 Room Air 10/04/17 09:28 96 147/83 10/04/17 09:28 147/83 10/04/17 08:10 97.4 96 19 147/83 (104) 97 97.4 10/04/17 08:00 92 10/04/17 04:00 99.0 100 18 135/75 (95) 95 99.0 10/04/17 03:47 97 10/04/17 02:27 165/104 10/04/17 01:47 Room Air 10/04/17 01:33 97.0 114 20 165/104 (124) 95 97.0 10/04/17 01:15 98.0 102 18 148/83 97 Room Air 98.0 10/04/17 01:00 98.0 102 18 148/83 97 Room Air 98.0 10/03/17 23:00 98.0 106 18 158/81 96 Room Air 98.0 10/03/17 21:30 97.9 105 18 143/82 94 Room Air 97.9 10/03/17 20:45 97.8 113 18 176/91 94 Room Air 97.9 NAD, jaundiced Scleral icterus, OPC 8 cm JVD CTA x dec @ bases RRR S/NT/ND c NABS No C/C, 1+ NICOLETTE CXR: PVC CT A/P: R > L pleural effusions, pericardial effusion, anasarca, generalized edema, CHF Laboratory Tests Test 10/03/17 21:15 10/03/17 21:25 10/04/17 06:50 10/04/17 10:52 White Blood Count 11.8 K/UL (4.8-10.8) H 9.8 K/UL (4.8-10.8) Red Blood Count 5.03 M/UL (4.20-5.40) 4.62 M/UL (4.20-5.40) Hemoglobin 15.7 G/DL (12.0-16.0) 14.6 G/DL (12.0-16.0) Hematocrit 49.0 % (37.0-47.0) H 44.1 % (37.0-47.0) Mean Corpuscular Volume 97 FL (80-99) 96 FL (80-99) Mean Corpuscular Hemoglobin 31.3 PG (27.0-31.0) H 31.6 PG (27.0-31.0) H Mean Corpuscular Hemoglobin Concent 32.1 G/DL (32.0-36.0) 33.0 G/DL (32.0-36.0) Red Cell Distribution Width 15.1 % (11.6-14.8) H 15.0 % (11.6-14.8) H Platelet Count 171 K/UL (150-450) 178 K/UL (150-450) Mean Platelet Volume 9.0 FL (6.5-10.1) 9.3 FL (6.5-10.1) Neutrophils (%) (Auto) 73.0 % (45.0-75.0) 67.6 % (45.0-75.0) Lymphocytes (%) (Auto) 16.9 % (20.0-45.0) L 22.6 % (20.0-45.0) Monocytes (%) (Auto) 8.4 % (1.0-10.0) 8.3 % (1.0-10.0) Eosinophils (%) (Auto) 0.2 % (0.0-3.0) 0.7 % (0.0-3.0) Basophils (%) (Auto) 1.5 % (0.0-2.0) 0.9 % (0.0-2.0) Sodium Level 129 MMOL/L (136-145) L 133 MMOL/L (136-145) L 129 MMOL/L (136-145) L Potassium Level 3.6 MMOL/L (3.5-5.1) 3.2 MMOL/L (3.5-5.1) L 3.8 MMOL/L (3.5-5.1) Chloride Level 94 MMOL/L (98-107) L 98 MMOL/L (98-107) 94 MMOL/L (98-107) L Carbon Dioxide Level 28 MMOL/L (21-32) 30 MMOL/L (21-32) 23 MMOL/L (21-32) Anion Gap 7 mmol/L (5-15) 6 mmol/L (5-15) 12 mmol/L (5-15) Blood Urea Nitrogen 14 mg/dL (7-18) 14 mg/dL (7-18) 14 mg/dL (7-18) Creatinine 0.5 MG/DL (0.55-1.30) L 0.5 MG/DL (0.55-1.30) L 0.5 MG/DL (0.55-1.30) L Estimat Glomerular Filtration Rate > 60 mL/min (>60) > 60 mL/min (>60) > 60 mL/min (>60) Glucose Level 282 MG/DL (74-106) H 229 MG/DL (74-106) H 276 MG/DL (74-106) H Calcium Level 8.3 MG/DL (8.5-10.1) L 8.0 MG/DL (8.5-10.1) L 8.2 MG/DL (8.5-10.1) L Total Bilirubin 13.0 MG/DL (0.2-1.0) H 12.5 MG/DL (0.2-1.0) H Direct Bilirubin 9.8 MG/DL (0.0-0.3) H 10.2 MG/DL (0.0-0.3) H Aspartate Amino Transf (AST/SGOT) 99 U/L (15-37) H 97 U/L (15-37) H Alanine Aminotransferase (ALT/SGPT) 214 U/L (12-78) H 183 U/L (12-78) H Alkaline Phosphatase 905 U/L (46-116) H 801 U/L (46-116) H Troponin I 0.000 ng/mL (0.000-0.056) 0.002 ng/mL (0.000-0.056) Pro-B-Type Natriuretic Peptide 2539 pg/mL (0-125) H 2437 pg/mL (0-125) H Total Protein 6.0 G/DL (6.4-8.2) L 5.2 G/DL (6.4-8.2) L Albumin 2.1 G/DL (3.4-5.0) L 1.7 G/DL (3.4-5.0) L Urine Color Brown Urine Appearance Slightly cloudy Urine pH 5 (4.5-8.0) Urine Specific [place] 1.020 (1.005-1.035) Urine Protein 3+ (NEGATIVE) H Urine Glucose (UA) 4+ (NEGATIVE) H Urine Ketones Negative (NEGATIVE) Urine Occult Blood 5+ (NEGATIVE) H Urine Nitrite Negative (NEGATIVE) Urine Bilirubin 3+ (NEGATIVE) H Urine Ictotest Positive (NEGATIVE) Urine Urobilinogen 8 MG/DL (0.0-1.0) H Urine Leukocyte Esterase 3+ (NEGATIVE) H Urine RBC 10-15 /HPF (0 - 2) H Urine WBC 5-10 /HPF (0 - 2) H Urine Squamous Epithelial Cells Few /LPF (NONE/OCC) Urine Amorphous Sediment Few /LPF (NONE) H Urine Bacteria Moderate /HPF (NONE) H Urine Yeast Few /HPF (NONE) H Hemoglobin A1c 8.7 % (4.3-6.0) H Magnesium Level 1.9 MG/DL (1.8-2.4) Globulin 3.5 g/dL Albumin/Globulin Ratio 0.5 (1.0-2.7) L Anti-Nuclear Antibody Screen Pending Uric Acid 1.3 MG/DL (2.6-7.2) L Phosphorus Level 3.2 MG/DL (2.5-4.9) C-Reactive Protein, Quantitative 2.4 mg/dL (0.00-0.90) H Triglycerides Level 148 MG/DL (30-150) Cholesterol Level 540 MG/DL (< 200) H LDL Cholesterol > 600 mg/dL (<100) H HDL Cholesterol 10 MG/DL (40-60) L Cholesterol/HDL Ratio 54.0 (3.3-4.4) H Vitamin B12 Level 936 PG/ML (193-986) Thyroid Stimulating Hormone (TSH) 1.486 uiU/mL (0.358-3.740) Test 10/04/17 12:28 Urine Opiates Screen Negative (NEGATIVE) Urine Barbiturates Screen Negative (NEGATIVE) Phencyclidine (PCP) Screen Negative (NEGATIVE) Urine Amphetamines Screen Negative (NEGATIVE) Urine Benzodiazepines Screen Negative (NEGATIVE) Urine Cocaine Screen Negative (NEGATIVE) Urine Marijuana (THC) Screen Negative (NEGATIVE) Assessment/Plan ASSESSMENT: B pleural effusion in the setting of decompensated HF, cirrhosis, hypoalbuminemia, likely all 2/2 starling forces CHF with ADHF Anasarca and generalized edema Abnormal LFT's Hypoalbuminemia Proteinuria UTI H/O EtOH abuse PLAN: Insufficient fluid for thoracentesis Monitor effusion with diuresis Monitor volumes, keep as negative as able F/U TTE F/U Liver Bx F/U cards, renal and GI recs Continue CTx for UTI Aspiration precautions DVT Px: Hep SQ FC MD Ara Healy Ashkan L. MD Oct 04, 2017 15:21
--- NOTE | 2017-10-04 17:26 | Cardiology Report ---
APPROVED REPORT EXAM: Two-dimensional and M-mode echocardiogram with Doppler and color Doppler. INDICATION Arrhythmia M-Mode DIMENSIONS IVSd1.4 (0.7-1.1cm)Left Atrium (MM)3.4 (1.6-4.0cm) LVDd4.3 (3.5-5.6cm)Aortic Root1.9 (2.0-3.7cm) PWd1.3 (0.7-1.1cm)Aortic Cusp Exc.1.2 (1.5-2.0cm) IVSs1.4 cm LVDs3.3 (2.5-4.0cm) PWs1.8 cm Normal left ventricular chamber size . Global left ventricular hypokinesis . Left ventricular ejection fraction estimated to be 45 %. Moderate left ventricular hypertrophy by 2-D. Trace posterior pericardial effusion. All other cardiac chamber sizes are within normal limits. Focal aortic valve sclerosis with reduced cusp excursion. Thickened mitral valve leaflets with normal excursion. Mitral annulus and aortic root calcification. Pulmonic valve not well visualized. Normal tricuspid valve structure. IVC at normal size with physiologic collapse. A color flow and spectral Doppler study was performed and revealed: No aortic regurgitation. Peak aortic valve gradient of 13 mm Hg and a mean of 6 mmHg. Aortic valve area 1.4 cm2 calculated by continuity equation Mild mitral regurgitation. Mitral diastolic velocities suggest reduced left ventricular relaxation c/w mild LV diastolic dysfunction (Grade I ). Mild tricuspid regurgitation. Tricuspid systolic velocities suggests peak right ventricular systolic pressure of 29 mmHg.
--- NOTE | 2017-10-04 18:05 | Cardiology Report ---
APPROVED REPORT EKG Measurement Heart [id number] Sinus tachycardia with fusion complexes Possible Left atrial enlargement Anterior infarct, age undetermined Abnormal ECG
[2017-10-04] MEDS: Carvedilol 6.25mg Tab ORAL SCH (20:34)
[2017-10-04] MEDS: Enalapril 5mg tab ORAL SCH (20:34)
--- NOTE | 2017-10-04 21:58 | Consultation ---
DATE OF CONSULTATION: 10/04/2017 CARDIOLOGY CONSULTATION CONSULTING PHYSICIAN: Malik Perez M.D. REFERRING PHYSICIAN: Antonia Barone M.D. REASON FOR CONSULTATION: Management of shortness of breath and possible acute heart failure. HISTORY OF PRESENT ILLNESS: The patient is a very unfortunate 62-year-old female with history of fibromyalgia, who presents to the hospital with shortness of breath, jaundice, and progressive worsening of lower extremity edema for the past five weeks. The patient apparently was seen by a foot doctor and was given doxycycline for unknown reason. She only takes vitamins and kbre-neu-dretgws supplements. She also states that she has been getting orthopnea using two or three pillows at night as well as dyspnea on exertion with more strenuous activities. In the Emergency Department, initial chest x-ray showed cardiomegaly with evidence of pulmonary edema. A 12-lead electrocardiogram was concerning for sinus tachycardia with right and left atrial enlargement, nonspecific ST and T-wave abnormalities, poor R-wave progression signifying possible old anterior myocardial infarction. The patient was admitted to telemetry. Cardiology consultation was made at request of Dr. Barone. PAST MEDICAL HISTORY: Fibromyalgia. ALLERGIES: No known drug allergies. PAST SURGICAL HISTORY: None. SOCIAL HISTORY: Denies any tobacco, alcohol, or illicit drug use. FAMILY HISTORY: No premature coronary artery disease in first-degree relatives. MEDICATIONS: Kpst-mvr-sebbmtp medication and vitamins only. REVIEW OF SYSTEMS: A 12-system review done essentially negative except what is mentioned in the history of present illness. PHYSICAL EXAMINATION: VITAL SIGNS: Blood pressure was 176/91, pulse of 113, respirations of 18, temperature 97.8 degrees Fahrenheit, and O2 saturation 94% on room air. GENERAL: The patient is a very unfortunate 62-year-old female that appears to be depressed and anxious, in mild respiratory distress. Cannot complete the sentence without getting out of breath. HEENT: Atraumatic and normocephalic. Pupils are equal, round, and reactive to light and accommodation. There is presence of the icteric sclera. NECK: JVP is elevated above 15 cm. No carotid bruits. Carotid upstrokes 2+ bilaterally. CARDIOVASCULAR: Normal S1, S2. Positive S3 and S4. A 2/6 midsystolic murmur at the left sternal border. PMI is at fourth intercostal space in the midclavicular line. LUNGS: Clear to auscultation bilaterally, although has poor inspiratory. ABDOMEN: Soft, nontender, and nondistended. No hepatosplenomegaly. Positive bowel sounds. EXTREMITIES: There is 2+ bilateral lower extremity edema. LABORATORY FINDINGS: Sodium was 129, potassium 3.6, chloride 94, bicarbonate 28, BUN of 14, creatinine 0.5, glucose was 282, calcium 8.3. ProBNP was 2539. Troponin I was 0.0. AST was elevated at 99, ALT was 214. Total bilirubin is and direct bilirubin is 9.8. Albumin is 2.1. WBC 11.8, hemoglobin 15.7, hematocrit 49.0, and platelet count is 171,000. Chest x-ray showed cardiomegaly with bilateral pulmonary edema. ASSESSMENT AND PLAN: The patient is a very unfortunate 62-year-old lady seen in Cardiology consultation at request of Dr. Barone. 1. most likely acute congestive heart failure, given the findings of chest x-ray with cardiomegaly and pulmonary edema as well as severely elevated beta-natriuretic peptide. Clinically, the patient also shows evidence of hypovolemia. I suspect that the patient may have severe right heart failure with passive congestion of liver lead into hyperbilirubinemia, although other etiologies need to be ruled out. 2. A 2D echocardiography, which shed light on these possibilities. 3. History of fibromyalgia. I would like to discontinue ibuprofen at this point in the setting of acute heart failure. Recommend consultation with pain specialist for more appropriate analgesic. Further therapeutic and diagnostic recommendations will be based on results of 2D echocardiography. In the meantime, I would agree with starting the patient on low dose of diuretics. I would like to thank, Dr. Barone, for the courtesy of this consultation. Malik Perez M.D. DR: FAM JOB#: [id number] CC:
[2017-10-05] VITALS: BP 128/69
--- NOTE | 2017-10-05 00:15 | History and Physical Report ---
DATE OF ADMISSION: 10/03/2017 HISTORY OF PRESENT ILLNESS: The patient admitted for new onset congestive heart failure and diabetes mellitus as well as abnormal liver function tests. The patient is being admitted for congestive heart failure as well as diabetes mellitus. The patient has been complaining of worsening leg edema, shortness of breath, and dark urine for the past couple of days as well as some mild rash in the groin area. The patient has history of smoking as well but mainly admitted for worsening lower extremity edema. PAST MEDICAL HISTORY: Significant for hypertension, CHF, NIDDM. PAST SURGICAL HISTORY: None. ALLERGIES: None. MEDICATIONS: Difficult to remember the name of medications she takes. FAMILY HISTORY: Does have history of hypertension. SOCIAL HISTORY: Denies history of alcohol or illicit drugs. Does have history of smoking. REVIEW OF SYSTEMS: HEENT: Denies headaches. RESPIRATORY: Reports shortness of breath. Denies cough. CARDIOVASCULAR: Denies chest pain. No orthopnea. Does have worsening leg edema. GASTROINTESTINAL: Denies nausea, vomiting, diarrhea. EXTREMITIES: Denies pain. CENTRAL NERVOUS SYSTEM: Denies change in vision or speech pattern. PHYSICAL EXAMINATION: VITAL SIGNS: Temperature is 97.4, pulse 96, blood pressure 147/83. HEENT: PERRLA. NECK: Supple. No lymphadenopathy. CHEST: Clear to auscultation. CARDIOVASCULAR: Regular rate and rhythm. GASTROINTESTINAL: Soft, nontender, and nondistended. No organomegaly. EXTREMITIES: A 2+ edema. NEUROLOGIC: Reflexes equal on both sides. Moves all four extremities. LABORATORY DATA: WBC of 11.8, hemoglobin 15.7, platelet 171. Sodium 133, potassium 3.2, BUN of 14, creatinine 0.5, glucose of 229. Total bilirubin of 12.5, AST of 97, ALT of 183. ASSESSMENT AND PLAN: 1. Elevated liver function tests. 2. Congestive heart failure. 3. Non-insulin dependent diabetes mellitus, apparently new onset. I have asked basically Dr. Tamayo, Dr. Scanlon, Dr. Bullock, Dr. Perez, Dr. Desai and Dr. Mccarthy to see the patient for the above-mentioned diagnoses and treatment. Antonia Barone M.D. DR: Jw JOB#: [id number] CC:
[2017-10-05 04:00] VITALS: BP 137/86
[2017-10-05] MEDS: NovoLOG Insulin Flexpen SUBQ SCH ×7 (06:40→21:14)
[2017-10-05 08:00] VITALS: BP 132/77
[2017-10-05] MEDS: Spironolactone 25mg tab ORAL SCH (08:50)
[2017-10-05] MEDS: Carvedilol 6.25mg Tab ORAL SCH (08:50)
[2017-10-05] MEDS: Enalapril 5mg tab ORAL SCH ×2 (08:51→21:12)
[2017-10-05] MEDS: Levemir Flexpen SUBQ SCH (09:04)
--- NOTE | 2017-10-05 09:16 | Pulmonology Progress Note ---
Assessment/Plan Problems: (1) New onset type 2 diabetes mellitus (2) Acute exacerbation of CHF (congestive heart failure) (3) UTI (urinary tract infection) (4) Proteinuria (5) Jaundice (6) LFT elevation Assessment/Plan ASSESSMENT: B pleural effusion in the setting of decompensated HF, cirrhosis, hypoalbuminemia, likely all 2/2 [facility] CHF with ADHF Anasarca and generalized edema Abnormal LFT's Hypoalbuminemia Proteinuria UTI H/O EtOH abuse PLAN: Insufficient fluid for thoracentesis Monitor effusion with diuresis Monitor volumes, keep as negative as able F/U Liver Bx F/U cards, renal and GI recs Continue CTx for UTI Aspiration precautions DVT Px: Hep SQ FC Subjective Allergies: Coded Allergies: UNABLE TO ASSESS (Unverified , 10/03/17) Subjective AFVSS, stable on RA, I/O inaccurate, TTE with LVEF 45% global hypokinesis, preserved RV and mild DD Less SOB, no cough, no CP, no F/C Most AML pending Objective Last 24 Hour Vital Signs Date Time Temp Pulse Resp B/P (MAP) Pulse Ox O2 Delivery O2 Flow Rate FiO2 10/05/17 08:51 132/77 10/05/17 08:50 78 132/77 10/05/17 08:00 97.9 87 20 132/77 (95) 96 97.9 10/05/17 04:00 90 10/05/17 04:00 98.4 93 20 137/86 (103) 96 98.4 10/05/17 00:00 94 10/05/17 00:00 97.0 96 20 128/69 (88) 96 97.0 10/04/17 21:00 Room Air 10/04/17 20:34 137/77 10/04/17 20:34 95 137/77 10/04/17 20:00 104 10/04/17 20:00 98.8 95 20 137/77 (97) 95 98.8 10/04/17 16:00 90 10/04/17 16:00 97.0 90 20 135/83 (100) 95 97.0 10/04/17 12:00 91 10/04/17 11:58 96.3 92 20 144/76 (98) 95 96.3 10/04/17 10:20 Room Air 10/04/17 09:28 96 147/83 10/04/17 09:28 147/83 Intake and Output 10/04/17 10/05/17 19:00 07:00 Intake Total 600 ml 120 ml Balance 600 ml 120 ml Intake Oral 600 ml 120 ml # Voids 3 General Appearance: no acute distress HEENT: mucous membranes moist, other - scleral icterus Respiratory/Chest: chest wall non-tender, lungs clear - but decreased @ bases Cardiovascular: normal peripheral pulses, normal rate, regular rhythm Abdomen: normal bowel sounds, soft, non tender, no organomegaly, non distended , no mass Extremities: no cyanosis, no clubbing, other - 1+_ [facility] Microbiology Date/Time Source Procedure Growth Status 10/03/17 21:25 Urine,Clean Catch Urine Culture - Preliminary Gram Negative Bacillus 1 Resulted Laboratory Tests 10/04/17 10:52: Sodium Level 129L, Potassium Level 3.8, Chloride Level 94L, Carbon Dioxide Level 23, Anion Gap 12, Blood Urea Nitrogen 14, Creatinine 0.5L, Estimat Glomerular Filtration Rate > 60, Glucose Level 276H, Uric Acid 1.3L, Calcium Level 8.2L, Phosphorus Level 3.2, C-Reactive Protein, Quantitative 2.4H, Pro-B- Type Natriuretic Peptide 2437H, Triglycerides Level 148, Cholesterol Level 540H , LDL Cholesterol > 600H, HDL Cholesterol 10L, Cholesterol/HDL Ratio 54.0H, Vitamin B12 Level 936, Thyroid Stimulating Hormone (TSH) 1.486 10/04/17 12:28: Urine Opiates Screen Negative, Urine Barbiturates Screen Negative, Phencyclidine (PCP) Screen Negative, Urine Amphetamines Screen Negative, Urine Benzodiazepines Screen Negative, Urine Cocaine Screen Negative, Urine Marijuana (THC) Screen Negative 10/05/17 06:30: Prothrombin Time 10.8, Prothromb Time International Ratio 1.0, Activated Partial Thromboplast Time 25, Gamma Glutamyl Transpeptidase 2511H, Ammonia 60H, Lactate Dehydrogenase 253H, Alpha Fetoprotein [Pending], Immunoglobulin G [ Pending], F-Actin IgG Antibody [Pending], Hepatitis A IgM Antibody [Pending], Hepatitis B Surface Antigen [Pending], Hepatitis B Core IgM Antibody [Pending], Hepatitis C Antibody [Pending] Current Medications Medications (Trade) Dose Ordered Sig/Dutch Route PRN Reason Start Time Stop Time Status Last Admin Dose Admin Carvedilol (Coreg) 6.25 mg EVERY 12 HOURS ORAL 10/04/17 21:00 11/03/17 08:59 10/05/17 08:50 Dextrose (Dextrose 50%) 25 ml STAT PRN IV Hypoglycemia 10/04/17 06:30 11/03/17 06:29 Dextrose (Dextrose 50%) 50 ml STAT PRN IV Hypoglycemia 10/04/17 06:30 11/03/17 06:29 Enalapril Maleate (Vasotec) 5 mg EVERY 12 HOURS ORAL 10/04/17 21:00 11/03/17 08:59 10/05/17 08:51 Famotidine (Pepcid) 20 mg BID ORAL 10/04/17 18:00 11/03/17 17:59 10/05/17 08:50 Furosemide (Lasix) 20 mg DAILY IV 10/04/17 09:00 11/03/17 08:59 10/05/17 08:50 Hydralazine HCl (Apresoline) 25 mg Q4H PRN ORAL SBP > 160 10/04/17 11:00 11/03/17 10:59 Insulin Aspart (NovoLOG) BEFORE MEALS AND HS SUBQ 10/04/17 06:30 11/03/17 06:29 10/05/17 06:40 Insulin Aspart (NovoLOG) 4 units NOVOTIAC SUBQ 10/04/17 07:00 11/03/17 06:59 10/05/17 06:40 Insulin Detemir (Levemir) 12 units DAILY SUBQ 10/04/17 09:00 11/03/17 08:59 10/05/17 09:04 Iopamidol (Isovue-300 100ml) 100 ml NOW PRN INJ Radiology Procedure 10/03/17 23:45 Spironolactone (Aldactone) 25 mg DAILY ORAL 10/05/17 09:00 11/04/17 08:59 10/05/17 08:50 Tramadol HCl (Ultram) 25 mg Q6H PRN ORAL severe pain 10/04/17 10:00 10/11/17 09:59 Abhinav Bullock MD Oct 05, 2017 09:16
--- NOTE | 2017-10-05 10:25 | General Progress Note ---
Assessment/Plan Problem List: (1) Jaundice ICD Codes: R17 - Unspecified jaundice SNOMED: 84196086 (2) New onset type 2 diabetes mellitus ICD Codes: E11.9 - Type 2 diabetes mellitus without complications SNOMED: 58545591 (3) Acute exacerbation of CHF (congestive heart failure) ICD Codes: I50.9 - Heart failure, unspecified SNOMED: 56702483 Qualifiers: Qualified Codes: I50.9 - Heart failure, unspecified (4) UTI (urinary tract infection) ICD Codes: N39.0 - Urinary tract infection, site not specified SNOMED: 76579040 Qualifiers: Qualified Codes: N30.00 - Acute cystitis without hematuria (5) Proteinuria ICD Codes: R80.9 - Proteinuria, unspecified SNOMED: 64078927 Qualifiers: Qualified Codes: R80.9 - Proteinuria, unspecified Assessment/Plan continue Levemir 12 units daily continue Novolog 4 units ac tid continue NISS Subjective Allergies: Coded Allergies: UNABLE TO ASSESS (Unverified , 10/03/17) All Systems: reviewed and negative except above Subjective events noted Objective Last 24 Hour Vital Signs Date Time Temp Pulse Resp B/P (MAP) Pulse Ox O2 Delivery O2 Flow Rate FiO2 10/05/17 08:51 132/77 10/05/17 08:50 78 132/77 10/05/17 08:00 97.9 87 20 132/77 (95) 96 97.9 10/05/17 04:00 90 10/05/17 04:00 98.4 93 20 137/86 (103) 96 98.4 10/05/17 00:00 94 10/05/17 00:00 97.0 96 20 128/69 (88) 96 97.0 10/04/17 21:00 Room Air 10/04/17 20:34 137/77 10/04/17 20:34 95 137/77 10/04/17 20:00 104 10/04/17 20:00 98.8 95 20 137/77 (97) 95 98.8 10/04/17 16:00 90 10/04/17 16:00 97.0 90 20 135/83 (100) 95 97.0 10/04/17 12:00 91 10/04/17 11:58 96.3 92 20 144/76 (98) 95 96.3 Intake and Output 10/04/17 10/05/17 19:00 07:00 Intake Total 600 ml 120 ml Balance 600 ml 120 ml Intake Oral 600 ml 120 ml # Voids 3 Laboratory Tests 10/04/17 10:52: Sodium Level 129L, Potassium Level 3.8, Chloride Level 94L, Carbon Dioxide Level 23, Anion Gap 12, Blood Urea Nitrogen 14, Creatinine 0.5L, Estimat Glomerular Filtration Rate > 60, Glucose Level 276H, Uric Acid 1.3L, Calcium Level 8.2L, Phosphorus Level 3.2, C-Reactive Protein, Quantitative 2.4H, Pro-B- Type Natriuretic Peptide 2437H, Triglycerides Level 148, Cholesterol Level 540H , LDL Cholesterol > 600H, HDL Cholesterol 10L, Cholesterol/HDL Ratio 54.0H, Vitamin B12 Level 936, Thyroid Stimulating Hormone (TSH) 1.486 10/04/17 12:28: Urine Opiates Screen Negative, Urine Barbiturates Screen Negative, Phencyclidine (PCP) Screen Negative, Urine Amphetamines Screen Negative, Urine Benzodiazepines Screen Negative, Urine Cocaine Screen Negative, Urine Marijuana (THC) Screen Negative 10/05/17 06:30: Prothrombin Time 10.8, Prothromb Time International Ratio 1.0, Activated Partial Thromboplast Time 25, Gamma Glutamyl Transpeptidase 2511H, Ammonia 60H, Lactate Dehydrogenase 253H, Alpha Fetoprotein [Pending], Immunoglobulin G [ Pending], F-Actin IgG Antibody [Pending], Hepatitis A IgM Antibody [Pending], Hepatitis B Surface Antigen [Pending], Hepatitis B Core IgM Antibody [Pending], Hepatitis C Antibody [Pending] Height (Feet): 5 Height (Inches): 1.00 Weight (Pounds): 164 General Appearance: no apparent distress Neck: normal alignment Cardiovascular: normal rate Respiratory/Chest: lungs clear Abdomen: normal bowel sounds Pelvis: normal external exam Objective Current Medications Medications (Trade) Dose Ordered Sig/Dutch Route PRN Reason Start Time Stop Time Status Last Admin Dose Admin Carvedilol (Coreg) 6.25 mg EVERY 12 HOURS ORAL 10/04/17 21:00 11/03/17 08:59 10/05/17 08:50 Dextrose (Dextrose 50%) 25 ml STAT PRN IV Hypoglycemia 10/04/17 06:30 11/03/17 06:29 Dextrose (Dextrose 50%) 50 ml STAT PRN IV Hypoglycemia 10/04/17 06:30 11/03/17 06:29 Enalapril Maleate (Vasotec) 5 mg EVERY 12 HOURS ORAL 10/04/17 21:00 11/03/17 08:59 10/05/17 08:51 Famotidine (Pepcid) 20 mg BID ORAL 10/04/17 18:00 11/03/17 17:59 10/05/17 08:50 Furosemide (Lasix) 20 mg DAILY IV 10/04/17 09:00 11/03/17 08:59 10/05/17 08:50 Hydralazine HCl (Apresoline) 25 mg Q4H PRN ORAL SBP > 160 10/04/17 11:00 11/03/17 10:59 Insulin Aspart (NovoLOG) BEFORE MEALS AND HS SUBQ 10/04/17 06:30 11/03/17 06:29 10/05/17 06:40 Insulin Aspart (NovoLOG) 4 units NOVOTIAC SUBQ 10/04/17 07:00 11/03/17 06:59 10/05/17 06:40 Insulin Detemir (Levemir) 12 units DAILY SUBQ 10/04/17 09:00 11/03/17 08:59 10/05/17 09:04 Iopamidol (Isovue-300 100ml) 100 ml NOW PRN INJ Radiology Procedure 10/03/17 23:45 Magnesium Citrate (Citrate Of Magnesia) 300 ml ONCE ONCE ORAL 10/05/17 11:30 10/05/17 11:31 Spironolactone (Aldactone) 25 mg DAILY ORAL 10/05/17 09:00 11/04/17 08:59 10/05/17 08:50 Tramadol HCl (Ultram) 25 mg Q6H PRN ORAL severe pain 10/04/17 10:00 10/11/17 09:59 Item Value Date Time Bedside Blood Glucose 231 mg/dl H 10/05/17 0904 Bedside Blood Glucose 231 mg/dl H 10/05/17 0640 Bedside Blood Glucose 196 mg/dl H 10/04/17 2036 Bedside Blood Glucose 124 mg/dl H 10/04/17 1804 Bedside Blood Glucose 236 mg/dl H 10/04/17 1210 Bedside Blood Glucose 158 mg/dl H 10/04/17 0930 Bedside Blood Glucose 312 mg/dl H 10/04/17 0630 Rad Mccarthy MD Oct 05, 2017 10:25
--- NOTE | 2017-10-05 10:58 | Diagnostic Imaging Report ---
Indication: Abdominal pain Technique: US ABD Complete Comparison: Concurrent CT of the abdomen and pelvis Findings: Liver contour appears smooth. No definite hepatic mass lesion appreciated sonographically. Echogenicity appears homogeneous. No appreciable intrahepatic or extrahepatic biliary ductal dilatation. Gallbladder unremarkable in appearance. No gallstones, gallbladder wall thickening or pericholecystic fluid identified. Common bile duct measures 2.5 mm diameter. Questionable papillary structures in the pancreatic head may represent a peripancreatic lymph node. Kidneys demonstrates normal echogenicity. There is no hydronephrosis or sonographically appreciable renal stone. Subcentimeter likely simple left parapelvic cyst. Bladder grossly unremarkable. Spleen normal in size. No ascites. Bilateral pleural effusions are incidentally identified, right greater than left. IMPRESSION: * Smooth liver contour. No focal hepatic mass lesion appreciated sonographically. No biliary ductal dilatation. * No cholelithiasis or evidence to suggest acute cholecystitis. * Hypoechoic structure in the pancreatic head may correspond with the prominent peripancreatic lymph node noted on concurrent CT of the abdomen. * Bilateral pleural effusions incidentally identified.
[2017-10-05] MEDS ORDERED: Magnesium Citrate Liq Btl ORAL ONE (11:30)
[2017-10-05] MEDS ORDERED: Gelfoam Absorbable 1gm powder pkt TOPIC ONE (11:45)
--- NOTE | 2017-10-05 11:47 | Pre-Procedure Note/Attestation ---
Pre-Procedure Note/Attestation Complete Prior to Procedure Planned Procedure: not applicable Procedure Narrative: US guided non-targeted liver biopsy Indications for Procedure Pre-Operative Diagnosis: abnormal LFTs, jaundice Attestation I attest that I discussed the nature of the procedure; its benefits; risks and complications; and alternatives (and the risks and benefits of such alternatives ), prior to the procedure, with the patient (or the patient's legal small business representative). I attest that I re-evaluated the patient just prior to the surgery and that there has been no change in the patient's H&P, except as documented below: Randal Ho M.D. Oct 05, 2017 11:47
--- NOTE | 2017-10-05 11:48 | General Progress Note ---
Assessment/Plan Problem List: (1) Acute exacerbation of CHF (congestive heart failure) ICD Codes: I50.9 - Heart failure, unspecified SNOMED: 60854217 Qualifiers: Qualified Codes: I50.9 - Heart failure, unspecified (2) New onset type 2 diabetes mellitus ICD Codes: E11.9 - Type 2 diabetes mellitus without complications SNOMED: 62252200 (3) UTI (urinary tract infection) ICD Codes: N39.0 - Urinary tract infection, site not specified SNOMED: 39689399 Qualifiers: Qualified Codes: N30.00 - Acute cystitis without hematuria Status: progressing Assessment/Plan consulted id for uti acute chf exacerbation is improving afebrile vitals stable reviewed lab hyponatremia Subjective ROS Limited/Unobtainable: Yes Allergies: Coded Allergies: UNABLE TO ASSESS (Unverified , 10/03/17) Objective Last 24 Hour Vital Signs Date Time Temp Pulse Resp B/P (MAP) Pulse Ox O2 Delivery O2 Flow Rate FiO2 10/05/17 09:00 Room Air 10/05/17 08:51 132/77 10/05/17 08:50 78 132/77 10/05/17 08:00 97.9 87 20 132/77 (95) 96 97.9 10/05/17 04:00 90 10/05/17 04:00 98.4 93 20 137/86 (103) 96 98.4 10/05/17 00:00 94 10/05/17 00:00 97.0 96 20 128/69 (88) 96 97.0 10/04/17 21:00 Room Air 10/04/17 20:34 137/77 10/04/17 20:34 95 137/77 10/04/17 20:00 104 10/04/17 20:00 98.8 95 20 137/77 (97) 95 98.8 10/04/17 16:00 90 10/04/17 16:00 97.0 90 20 135/83 (100) 95 97.0 10/04/17 12:00 91 10/04/17 11:58 96.3 92 20 144/76 (98) 95 96.3 Intake and Output 10/04/17 10/05/17 19:00 07:00 Intake Total 600 ml 120 ml Balance 600 ml 120 ml Intake Oral 600 ml 120 ml # Voids 3 Laboratory Tests 10/04/17 12:28: Urine Opiates Screen Negative, Urine Barbiturates Screen Negative, Phencyclidine (PCP) Screen Negative, Urine Amphetamines Screen Negative, Urine Benzodiazepines Screen Negative, Urine Cocaine Screen Negative, Urine Marijuana (THC) Screen Negative 10/05/17 06:30: Prothrombin Time 10.8, Prothromb Time International Ratio 1.0, Activated Partial Thromboplast Time 25, Gamma Glutamyl Transpeptidase 2511H, Ammonia 60H, Lactate Dehydrogenase 253H, Alpha Fetoprotein [Pending], Immunoglobulin G [ Pending], F-Actin IgG Antibody [Pending], Hepatitis A IgM Antibody [Pending], Hepatitis B Surface Antigen [Pending], Hepatitis B Core IgM Antibody [Pending], Hepatitis C Antibody [Pending] Height (Feet): 5 Height (Inches): 1.00 Weight (Pounds): 164 Cardiovascular: normal rate Respiratory/Chest: lungs clear Abdomen: soft Antonia Barone MD Oct 05, 2017 11:48
--- NOTE | 2017-10-05 11:51 | Operative Note - PDOC ---
Operative Note Operative Note Date of Operation/Procedure: Oct 05, 2017 Pre-op Diagnosis: abnormal LFTs, jaundice Procedure: US guided nontareted liver biopsy Post-op Diagnosis: same Post-op Diagnosis: same as pre-op Anesthesia: local Specimen: yes Complications: none Condition: stable Estimated Blood Loss: minimal Drains: none Implant(s) used?: No Indications for Procedure abnormal LFTs, jaundice Description of Procedure US guided liver biopsy (non-targeted). Obtained specimens of the left hepatic lobe. 3 18-gauge core biopsy specimens obtained and submitted for pathology. No hematoma noted on US after biopsy. Recommend frequent vital signs monitoring for at least the next 4 hours. Randal Ho M.D. Oct 05, 2017 11:51
[2017-10-05 12:00] VITALS: BP 147/85
--- NOTE | 2017-10-05 12:01 | GI Progress Note ---
Assessment/Plan Problems: (1) LFT elevation ICD Codes: R94.5 - Abnormal results of liver function studies SNOMED: 946267004, 944242122 (2) New onset type 2 diabetes mellitus ICD Codes: E11.9 - Type 2 diabetes mellitus without complications SNOMED: 90578192 (3) Acute exacerbation of CHF (congestive heart failure) ICD Codes: I50.9 - Heart failure, unspecified SNOMED: 70045053 Qualifiers: Qualified Codes: I50.9 - Heart failure, unspecified (4) Jaundice ICD Codes: R17 - Unspecified jaundice SNOMED: 34052167 Status: unchanged Status Narrative Discussed with Dr. Desai. Assessment/Plan utox negative GGT elevation abdominal U/S reviewed >> * Smooth liver contour. No focal hepatic mass lesion appreciated sonographically. No biliary ductal dilatation. * No cholelithiasis or evidence to suggest acute cholecystitis. * Hypoechoic structure in the pancreatic head may correspond with the prominent peripancreatic lymph node noted on concurrent CT of the abdomen. MRI/MRCP ordered liver biopsy r/o autoimmune today trend LFTs hep panel DM mgmt EDWARD, IgG ppi fu labs, AFP The patient was seen and examined at bedside and all new and available data was reviewed in the patients chart. I agree with the above findings, impression and plan. (Patient seen earlier today. Signature stamp does not reflect patient encounter time.). - Daniel Desai MD Subjective Subjective depressed jaundice wants to go home Objective Last 24 Hour Vital Signs Date Time Temp Pulse Resp B/P (MAP) Pulse Ox O2 Delivery O2 Flow Rate FiO2 10/05/17 09:00 Room Air 10/05/17 08:51 132/77 10/05/17 08:50 78 132/77 10/05/17 08:00 97.9 87 20 132/77 (95) 96 97.9 10/05/17 04:00 90 10/05/17 04:00 98.4 93 20 137/86 (103) 96 98.4 10/05/17 00:00 94 10/05/17 00:00 97.0 96 20 128/69 (88) 96 97.0 10/04/17 21:00 Room Air 10/04/17 20:34 137/77 10/04/17 20:34 95 137/77 10/04/17 20:00 104 10/04/17 20:00 98.8 95 20 137/77 (97) 95 98.8 10/04/17 16:00 90 10/04/17 16:00 97.0 90 20 135/83 (100) 95 97.0 10/04/17 12:00 91 10/04/17 11:58 96.3 92 20 144/76 (98) 95 96.3 Intake and Output 10/04/17 10/05/17 19:00 07:00 Intake Total 600 ml 120 ml Balance 600 ml 120 ml Intake Oral 600 ml 120 ml # Voids 3 Laboratory Tests Test 10/04/17 12:28 10/05/17 06:30 Urine Opiates Screen Negative (NEGATIVE) Urine Barbiturates Screen Negative (NEGATIVE) Phencyclidine (PCP) Screen Negative (NEGATIVE) Urine Amphetamines Screen Negative (NEGATIVE) Urine Benzodiazepines Screen Negative (NEGATIVE) Urine Cocaine Screen Negative (NEGATIVE) Urine Marijuana (THC) Screen Negative (NEGATIVE) Prothrombin Time 10.8 SEC (9.30-11.50) Prothromb Time International Ratio 1.0 (0.9-1.1) Activated Partial Thromboplast Time 25 SEC (23-33) Gamma Glutamyl Transpeptidase 2511 U/L (5-85) H Ammonia 60 umol/L (11-32) H Lactate Dehydrogenase 253 U/L (81-234) H Alpha Fetoprotein Pending Immunoglobulin G Pending F-Actin IgG Antibody Pending Hepatitis A IgM Antibody Pending Hepatitis B Surface Antigen Pending Hepatitis B Core IgM Antibody Pending Hepatitis C Antibody Pending Height (Feet): 5 Height (Inches): 1.00 Weight (Pounds): 164 General Appearance: WD/WN, no apparent distress, alert Cardiovascular: normal rate Respiratory/Chest: normal breath sounds, no respiratory distress Abdominal Exam: normal bowel sounds, non tender, soft Extremities: normal range of motion, non-tender Neyda Mackey NP Oct 05, 2017 12:01
[2017-10-05 12:05] LABS: BASOPHILS % (AUTO) 0.7 % (0.0-2.0); EOSINOPHILS % (AUTO) 0.5 % (0.0-3.0); HEMATOCRIT 48.1 % (37.0-47.0); HEMOGLOBIN 15.2 G/DL (12.0-16.0); LYMPHOCYTES % (AUTO) 26.6 % (20.0-45.0); MEAN CORPUSCULAR VOLUME 97 FL (80-99); MONOCYTES % (AUTO) 5.1 % (1.0-10.0); PLATELET COUNT 192 K/UL (150-450); RED BLOOD COUNT 4.95 M/UL (4.20-5.40); RED CELL DISTRIBUTION WIDTH 15.2 % (11.6-14.8); WHITE BLOOD COUNT 8.4 K/UL (4.8-10.8)
[2017-10-05 12:10] LABS: ANION GAP 11 mmol/L (5-15); BLOOD UREA NITROGEN 19 mg/dL (7-18); CALCIUM 8.7 MG/DL (8.5-10.1); CARBON DIOXIDE 26 MMOL/L (21-32); CHLORIDE 95 MMOL/L (98-107); CREATININE 0.5 MG/DL (0.55-1.30); POTASSIUM 3.9 MMOL/L (3.5-5.1); SODIUM 132 MMOL/L (136-145)
[2017-10-05 12:21] LABS: ALANINE AMINOTRANSFERASE 212 U/L (12-78); ALBUMIN 1.8 G/DL (3.4-5.0); ALBUMIN/GLOBULIN RATIO 0.5 (1.0-2.7); ALKALINE PHOSPHATASE 962 U/L (46-116); ASPARTATE AMINO TRANSFERASE 156 U/L (15-37); BILIRUBIN,TOTAL 13.9 MG/DL (0.2-1.0)
[2017-10-05 12:24] LABS: BILIRUBIN,DIRECT 11.2 MG/DL (0.0-0.3)
--- NOTE | 2017-10-05 13:48 | Diagnostic Imaging Report ---
Indication: Nahid, abnormal function. Technique: Informed consent obtained prior to commencement of the procedure. Risks, including but not limited to hemorrhage, infection, sampling error discussed with patient, all questions answered. She indicated willingness to proceed. Ultrasound used to localize the optimal puncture site in the left hepatic lobe. Sterile prepping and draping occluding is a sterile ultrasound probe cover and sterile ultrasound gel. Local anesthesia with one percent lidocaine. Under real-time ultrasound guidance, total 3 needle passes made into the left hepatic lobe using 18-gauge automated biopsy gun. Specimens placed in formalin, submitted to pathology. The patient tolerated the procedure well, without immediate complication. Findings: Intraprocedural images confirm needle placement within the left hepatic lobe. No significant perihepatic hematoma status post biopsy. Impression: Apparently successful ultrasound-guided liver biopsy, for parenchymal disease, as described. Final pathology pending
[2017-10-05] MEDS ORDERED: Gadavist 7.5mMol/7.5ml vial IV PRN (14:45)
--- NOTE | 2017-10-05 15:20 | Nephrology Progress Note ---
Assessment/Plan Problem List: (1) Proteinuria Assessment: Bilateral pleural effusions (2) UTI (urinary tract infection) (3) Jaundice (4) Acute exacerbation of CHF (congestive heart failure) (5) LFT elevation Assessment Patient has Proteinuria and Hypoalbuminemia admitted with: Acute exacerbation of CHF (congestive heart failure) Has UTI (urinary tract infection) New onset type 2 diabetes mellitus Anasarca , Jaundice Likely Cirrhosis Plan Adjust BP meds- Optimize cardiac status- GI advise- Keep BS in check slow diuresis 2D echo- Kidney HUNG Global left ventricular hypokinesis . Left ventricular ejection fraction estimated to be 45 %. Moderate left ventricular hypertrophy by 2-D. per orders Subjective ROS Limited/Unobtainable: No Constitutional: Reports: malaise Objective Objective Last 24 Hour Vital Signs Date Time Temp Pulse Resp B/P (MAP) Pulse Ox O2 Delivery O2 Flow Rate FiO2 10/05/17 12:00 87 10/05/17 09:00 Room Air 10/05/17 08:51 132/77 10/05/17 08:50 78 132/77 10/05/17 08:00 97.9 87 20 132/77 (95) 96 97.9 10/05/17 08:00 91 10/05/17 04:00 90 10/05/17 04:00 98.4 93 20 137/86 (103) 96 98.4 10/05/17 00:00 94 10/05/17 00:00 97.0 96 20 128/69 (88) 96 97.0 10/04/17 21:00 Room Air 10/04/17 20:34 137/77 10/04/17 20:34 95 137/77 10/04/17 20:00 104 10/04/17 20:00 98.8 95 20 137/77 (97) 95 98.8 10/04/17 16:00 90 10/04/17 16:00 97.0 90 20 135/83 (100) 95 97.0 Intake and Output 10/04/17 10/05/17 19:00 07:00 Intake Total 600 ml 120 ml Balance 600 ml 120 ml Intake Oral 600 ml 120 ml # Voids 3 Laboratory Tests 10/05/17 06:30: White Blood Count 8.4, Red Blood Count 4.95, Hemoglobin 15.2, Hematocrit 48.1H, Mean Corpuscular Volume 97, Mean Corpuscular Hemoglobin 30.6, Mean Corpuscular Hemoglobin Concent 31.6L, Red Cell Distribution Width 15.2H, Platelet Count 192 , Mean Platelet Volume 7.7, Neutrophils (%) (Auto) 67.0, Lymphocytes (%) (Auto) 26.6, Monocytes (%) (Auto) 5.1, Eosinophils (%) (Auto) 0.5, Basophils (%) (Auto ) 0.7, Prothrombin Time 10.8, Prothromb Time International Ratio 1.0, Activated Partial Thromboplast Time 25, Sodium Level 132L, Potassium Level 3.9, Chloride Level 95L, Carbon Dioxide Level 26, Anion Gap 11, Blood Urea Nitrogen 19H, Creatinine 0.5L, Estimat Glomerular Filtration Rate > 60, Glucose Level 254H, Calcium Level 8.7, Total Bilirubin 13.9H, Direct Bilirubin 11.2H, Gamma Glutamyl Transpeptidase 2511H, Aspartate Amino Transf (AST/SGOT) 156H, Alanine Aminotransferase (ALT/SGPT) 212H, Alkaline Phosphatase 962H, Ammonia 60H, Lactate Dehydrogenase 253H, Total Protein 5.5L, Albumin 1.8L, Globulin 3.7, Albumin/Globulin Ratio 0.5L, Alpha Fetoprotein [Pending], Immunoglobulin G [ Pending], F-Actin IgG Antibody [Pending], Hepatitis A IgM Antibody [Pending], Hepatitis B Surface Antigen [Pending], Hepatitis B Core IgM Antibody [Pending], Hepatitis C Antibody [Pending] Height (Feet): 5 Height (Inches): 1.00 Weight (Pounds): 164 General Appearance: no apparent distress Cardiovascular: normal rate Respiratory/Chest: decreased breath sounds Abdomen: distended Extremities: other - edematous Bryan Scanlon MD Oct 05, 2017 15:20
[2017-10-05] MEDS: cefTRIAXone 1 GM in D5W 55 ML IVPB SCH (15:59)
[2017-10-05 16:00] VITALS: BP 135/84
--- NOTE | 2017-10-05 16:44 | Diagnostic Imaging Report ---
Indication: Abnormal liver function. On this. Technique: MRI of the abdomen was performed in a 1.5 Vianca magnet. Multiplanar, multisequence acquisition was performed. Please note that the evaluation was terminated early as the patient refused to continue with the exam. No IV contrast was administered. MRCP sequences were also not formed. Comparison: Concurrent CT of the abdomen and abdominal ultrasound. Findings: Limited, incomplete exam as above. Images also degraded by patient motion. Within these limitations: Liver contour is smooth. Liver size is normal. No definite focal hepatic signal abnormality is appreciated. No intrahepatic or extrahepatic biliary ductal dilatation. The gallbladder is contracted with apparent gallbladder wall thickening likely related to gallbladder contraction. No appreciable stones or sludge identified. Spleen is not enlarged. It is homogeneous in signal. Pancreas signal is homogeneous. No focal pancreatic lesion is appreciated however evaluation is limited due to lack of contrast. Previously described prominent peripancreatic lymph node better appreciated on the concurrent CT. Kidneys grossly unremarkable. Imaged portions of the gastrointestinal tract unremarkable. There is anasarca with generalized edema of the subcutaneous fat. There are bilateral pleural effusions, right greater than left. There is some depressive atelectasis in the right lower lobe. There is a mild pericardial effusion. Imaged bone marrow signal is homogeneous. Abdominal aorta normal in caliber. IMPRESSION: Limited, incomplete exam as above. MRCP sequences and postcontrast sequences not obtained as patient refused to continue with exam. Obtained images also degraded by patient motion. Within these limitations: Liver normal in contour. No focal hepatic signal abnormality identified. No intrahepatic or extrahepatic biliary ductal dilatation. Contracted gallbladder. No appreciable gallstones or gallbladder sludge. Limited evaluation of the pancreas without contrast. Anasarca with subcutaneous edema, bilateral pleural effusions and small pericardial effusion.
--- NOTE | 2017-10-05 18:15 | Consultation ---
History of Present Illness General Date patient seen: Oct 05, 2017 Chief Complaint: Present Illness Allergies: Coded Allergies: UNABLE TO ASSESS (Unverified , 10/03/17) Medication History No Active Prescriptions or Reported Meds Patient History Healthcare decision maker Resuscitation status Full Code Advanced Directive on File No Physical Exam Last 24 Hour Vital Signs Date Time Temp Pulse Resp B/P (MAP) Pulse Ox O2 Delivery O2 Flow Rate FiO2 10/05/17 16:00 97.5 85 20 135/84 (101) 94 97.5 10/05/17 16:00 85 10/05/17 12:00 87 10/05/17 12:00 97.7 86 20 147/85 (105) 97 97.7 10/05/17 09:00 Room Air 10/05/17 08:51 132/77 10/05/17 08:50 78 132/77 10/05/17 08:00 97.9 87 20 132/77 (95) 96 97.9 10/05/17 08:00 91 10/05/17 04:00 90 10/05/17 04:00 98.4 93 20 137/86 (103) 96 98.4 10/05/17 00:00 94 10/05/17 00:00 97.0 96 20 128/69 (88) 96 97.0 10/04/17 21:00 Room Air 10/04/17 20:34 137/77 10/04/17 20:34 95 137/77 10/04/17 20:00 104 10/04/17 20:00 98.8 95 20 137/77 (97) 95 98.8 Intake and Output 10/04/17 10/05/17 19:00 07:00 Intake Total 600 ml 120 ml Balance 600 ml 120 ml Intake Oral 600 ml 120 ml # Voids 3 Laboratory Tests Test 10/05/17 06:30 White Blood Count 8.4 K/UL (4.8-10.8) Red Blood Count 4.95 M/UL (4.20-5.40) Hemoglobin 15.2 G/DL (12.0-16.0) Hematocrit 48.1 % (37.0-47.0) H Mean Corpuscular Volume 97 FL (80-99) Mean Corpuscular Hemoglobin 30.6 PG (27.0-31.0) Mean Corpuscular Hemoglobin Concent 31.6 G/DL (32.0-36.0) L Red Cell Distribution Width 15.2 % (11.6-14.8) H Platelet Count 192 K/UL (150-450) Mean Platelet Volume 7.7 FL (6.5-10.1) Neutrophils (%) (Auto) 67.0 % (45.0-75.0) Lymphocytes (%) (Auto) 26.6 % (20.0-45.0) Monocytes (%) (Auto) 5.1 % (1.0-10.0) Eosinophils (%) (Auto) 0.5 % (0.0-3.0) Basophils (%) (Auto) 0.7 % (0.0-2.0) Prothrombin Time 10.8 SEC (9.30-11.50) Prothromb Time International Ratio 1.0 (0.9-1.1) Activated Partial Thromboplast Time 25 SEC (23-33) Sodium Level 132 MMOL/L (136-145) L Potassium Level 3.9 MMOL/L (3.5-5.1) Chloride Level 95 MMOL/L (98-107) L Carbon Dioxide Level 26 MMOL/L (21-32) Anion Gap 11 mmol/L (5-15) Blood Urea Nitrogen 19 mg/dL (7-18) H Creatinine 0.5 MG/DL (0.55-1.30) L Estimat Glomerular Filtration Rate > 60 mL/min (>60) Glucose Level 254 MG/DL (74-106) H Calcium Level 8.7 MG/DL (8.5-10.1) Total Bilirubin 13.9 MG/DL (0.2-1.0) H Direct Bilirubin 11.2 MG/DL (0.0-0.3) H Gamma Glutamyl Transpeptidase 2511 U/L (5-85) H Aspartate Amino Transf (AST/SGOT) 156 U/L (15-37) H Alanine Aminotransferase (ALT/SGPT) 212 U/L (12-78) H Alkaline Phosphatase 962 U/L (46-116) H Ammonia 60 umol/L (11-32) H Lactate Dehydrogenase 253 U/L (81-234) H Total Protein 5.5 G/DL (6.4-8.2) L Albumin 1.8 G/DL (3.4-5.0) L Globulin 3.7 g/dL Albumin/Globulin Ratio 0.5 (1.0-2.7) L Alpha Fetoprotein Pending Immunoglobulin G Pending F-Actin IgG Antibody Pending Hepatitis A IgM Antibody Pending Hepatitis B Surface Antigen Pending Hepatitis B Core IgM Antibody Pending Hepatitis C Antibody Pending Height (Feet): 5 Height (Inches): 1.00 Weight (Pounds): 164 Medications Current Medications Medications (Trade) Dose Ordered Sig/Dutch Route PRN Reason Start Time Stop Time Status Last Admin Dose Admin Carvedilol (Coreg) 12.5 mg EVERY 12 HOURS ORAL 10/05/17 21:00 11/03/17 08:59 Ceftriaxone Sodium 1 gm/ Dextrose 55 ml @ 110 mls/hr Q24H IVPB 10/05/17 14:30 10/12/17 14:29 10/05/17 15:59 Clotrimazole (Lotrimin) 1 applic THREE TIMES A DAY TOPIC 10/05/17 18:00 11/04/17 17:59 10/05/17 15:59 Dextrose (Dextrose 50%) 25 ml STAT PRN IV Hypoglycemia 10/04/17 06:30 11/03/17 06:29 Dextrose (Dextrose 50%) 50 ml STAT PRN IV Hypoglycemia 10/04/17 06:30 11/03/17 06:29 Diphenhydramine HCl (Benadryl) 50 mg HSPRN PRN ORAL Insomnia 10/05/17 18:15 11/04/17 18:14 Enalapril Maleate (Vasotec) 5 mg EVERY 12 HOURS ORAL 10/04/17 21:00 11/03/17 08:59 10/05/17 08:51 Famotidine (Pepcid) 20 mg BID ORAL 10/04/17 18:00 11/03/17 17:59 10/05/17 17:48 Furosemide (Lasix) 20 mg DAILY IV 10/04/17 09:00 11/03/17 08:59 10/05/17 08:50 Gadobutrol (Gadavist) 7.5 mmol NOW PRN IV Radiology Procedure 10/05/17 14:45 10/09/17 14:40 Hydralazine HCl (Apresoline) 25 mg Q4H PRN ORAL SBP > 160 10/04/17 11:00 11/03/17 10:59 Insulin Aspart (NovoLOG) BEFORE MEALS AND HS SUBQ 10/04/17 06:30 11/03/17 06:29 10/05/17 17:45 Insulin Aspart (NovoLOG) 4 units NOVOTIAC SUBQ 10/04/17 07:00 11/03/17 06:59 10/05/17 17:45 Insulin Detemir (Levemir) 12 units DAILY SUBQ 10/04/17 09:00 11/03/17 08:59 10/05/17 09:04 Iopamidol (Isovue-300 100ml) 100 ml NOW PRN INJ Radiology Procedure 10/03/17 23:45 Spironolactone (Aldactone) 25 mg DAILY ORAL 10/05/17 09:00 11/04/17 08:59 10/05/17 08:50 Tramadol HCl (Ultram) 25 mg Q6H PRN ORAL severe pain 10/04/17 10:00 10/11/17 09:59 Assessment/Plan Assessment/Plan (1) CHF (2) B/L LE Pain (3) Anasarca (4) Insomnia seen dictated Rik Kim Oct 05, 2017 18:15
[2017-10-05 20:00] VITALS: BP 133/77
[2017-10-05] MEDS: Carvedilol 12.5mg tab ORAL SCH (21:12)
[2017-10-05] MEDS: traMADol 50mg tab ORAL PRN (21:26)
[2017-10-06] VITALS: BP 127/81
--- NOTE | 2017-10-06 01:30 | Consultation ---
DATE OF CONSULTATION: 10/05/2017 NOTE: POOR AUDIO INFECTIOUS DISEASE CONSULTATION CONSULTING PHYSICIAN: Ranjeet Patel M.D. PRIMARY ATTENDING PHYSICIAN: Antonia Barone M.D. HISTORY OF PRESENT ILLNESS: The patient is a 62-year-old white female, admitted on 10/03/2017, complaining of feeling sick, edema of legs, and also has developed groin rash. The patient was found to have new-onset diabetes mellitus, was found to have CHF with pleural effusion and cardiomegaly, was found to have jaundice with a bilirubin of 13 at the time of admission. The patient had a liver biopsy because the abdominal ultrasound and CT scan showed cirrhotic features. PAST MEDICAL HISTORY: Significant for fibromyalgia. SOCIAL HISTORY: She has a history of drinking , drinks 1 beer at night. No drug abuse or smoking. . Lives alone. Cats at home. MEDICATIONS: , carvedilol, enalapril, famotidine, tramadol, Levemir insulin, and Lasix. REVIEW OF SYSTEMS: No fever. No chills. No headache. . No chest pain. No nausea. No vomiting. She has constipation. No coughing. She has swelling of legs that is decreased, has rash in groin that is painful as she walks. No significant urinary problems except frequency. PHYSICAL EXAMINATION: GENERAL APPEARANCE: No acute distress. Well developed. VITAL SIGNS: Temperature 97.9 degrees, pulse 78, and blood pressure 132/77. HEAD AND NECK: Icterus. Snead conjunctivae. HEART: Regular. LUNGS: Clear. ABDOMEN: Soft. Nontender. EXTREMITIES: Have severe edema of the legs. NEUROLOGIC: Awake, alert, and oriented x3. LABORATORY AND DIAGNOSTIC DATA: Urine culture is growing gram-negative rods. WBC 8.4, hemoglobin 15.2, hematocrit 48.1, and platelets 192. Sodium 132, potassium 2.9, chloride 95, bicarbonate 26, BUN 19, creatinine 0.5, and glucose 254. Total bilirubin 13.9 and direct bilirubin 11.2. AST 156, ALT 212, and alkaline phosphatase is 962. LDH 252. Ammonia 80. Albumin 1.8. Abdominal ultrasound showed smooth liver contour. No cholelithiasis. Abdominal CT, evidence of anasarca and cardiomegaly, otherwise negative. Chest x-ray showed cardiomegaly and congestion. IMPRESSION: 1. Pyurias, likely UTI. 2. Mary dermatitis in the groin area. 3. Jaundice and elevation in her LFTs. 4. Acute CHF. 5. Diabetes mellitus, type 2. 6. Pleural effusion. RECOMMENDATION: The patient was started on topical clotrimazole and IV ceftriaxone. We will follow up the cultures and narrow antibiotics. At the end of my exam, I thank Dr. Barone for involving me in the care of this patient. Ranjeet Patel M.D. DR: WILMA JOB#: [id number] CC: MELLISA
[2017-10-06 04:00] VITALS: BP 130/82
[2017-10-06] MEDS: NovoLOG Insulin Flexpen SUBQ SCH ×7 (06:30→21:37)
[2017-10-06 07:30] LABS: BASOPHILS % (AUTO) 1.3 % (0.0-2.0); HEMATOCRIT 45.3 % (37.0-47.0); HEMOGLOBIN 14.7 G/DL (12.0-16.0); LYMPHOCYTES % (AUTO) 26.1 % (20.0-45.0); MEAN CORPUSCULAR VOLUME 97 FL (80-99); MONOCYTES % (AUTO) 10.7 % (1.0-10.0); NEUTROPHILS % (AUTO) 60.9 % (45.0-75.0); PLATELET COUNT 197 K/UL (150-450); RED BLOOD COUNT 4.68 M/UL (4.20-5.40); RED CELL DISTRIBUTION WIDTH 15.4 % (11.6-14.8); WHITE BLOOD COUNT 7.9 K/UL (4.8-10.8)
[2017-10-06 08:02] VITALS: BP 139/83
[2017-10-06 08:09] LABS: ALANINE AMINOTRANSFERASE 227 U/L (12-78); ALBUMIN 1.7 G/DL (3.4-5.0); ALBUMIN/GLOBULIN RATIO 0.4 (1.0-2.7); ALKALINE PHOSPHATASE 1061 U/L (46-116); ANION GAP 8 mmol/L (5-15); ASPARTATE AMINO TRANSFERASE 148 U/L (15-37); BLOOD UREA NITROGEN 22 mg/dL (7-18); CALCIUM 8.4 MG/DL (8.5-10.1); CARBON DIOXIDE 28 MMOL/L (21-32); CHLORIDE 98 MMOL/L (98-107); CREATININE 0.3 MG/DL (0.55-1.30); POTASSIUM 3.7 MMOL/L (3.5-5.1); SODIUM 134 MMOL/L (136-145)
[2017-10-06 08:11] LABS: BILIRUBIN,DIRECT 12.6 MG/DL (0.0-0.3)
--- NOTE | 2017-10-06 08:30 | Consultation ---
DATE OF CONSULTATION: 10/05/2017 PAIN MANAGEMENT CONSULTATION CONSULTING PHYSICIAN: Nannette Tamayo M.D. REFERRING PHYSICIAN: Antonia Barone M.D. PHYSICIAN REGISTERED NURSE BONE MARROW TRANSPLANT: Arnulfo Bolivar CHIEF COMPLAINT: Bilateral lower extremity pain. HISTORY OF PRESENT ILLNESS: The patient is a 62-year-old female who is being seen on the telemetry floor of [facility] for initial comprehensive pain management consultation. The patient is admitted under the care of Dr. Barone complaining of bilateral lower extremity pain, found to have diabetes mellitus causing anasarca with severe edema in the lower extremities with severe pain, unable to take Tylenol due to elevated liver enzymes and started on tramadol 25 mg tablet every four hours as needed for severe pain. She now is complaining of insomnia as well d/w her about Benadryl she seems to understand. PAST MEDICAL HISTORY: Diabetes mellitus, CHF, and hypertension. PAST SURGICAL HISTORY: Denies. SOCIAL HISTORY: Has a history of smoking tobacco. Denies alcohol abuse and IV drug abuse. ALLERGIES: No known drug allergies. REVIEW OF SYSTEMS: Denies rash, fever, chills, sweating, dizziness, drowsiness, blurred vision, sore throat, or change in weight. No shortness of breath or chest pain. No nausea, vomiting, diarrhea, or blood in the stool or urine. No bowel or bladder incontinence. No dysuria. She is complaining of bilateral lower extremity pain. PHYSICAL EXAMINATION: GENERAL: Alert, awake, and oriented. VITAL SIGNS: Blood pressure 135/84, heart rate 85, oxygen saturation is 95%, respirations 20, and temperature is 97.8 degrees Fahrenheit. HEENT: PERRLA. NECK: Range of motion is full in all directions. No tenderness to paracervical muscles. No adenopathy. LUNGS: Decreased breath sounds bilaterally. HEART: Regular. ABDOMEN: Obese. BACK: Range of motion is decreased in flexion and extension. EXTREMITIES: Upper and lower extremity range of motion is decreased due to the patient's condition. No cyanosis. No clubbing. Severe edema noted in bilateral lower extremities. Sensory is decreased. Reflexes are not obtainable. No adenopathy. ASSESSMENT AND PLAN: This is a 62-year-old female with CHF and anasarca, bilateral lower extremity pain, and insomnia. The patient will be continued on tramadol as needed, was started on Benadryl 50 mg tablet at bedtime p.r.n. The patient was discussed with Dr. Tamayo and Dr. Tamayo concurred. We will follow the patient. Thank you very much for the courtesy of this consultation. Nannette Tamayo M.D. WILLY Bolivar DR: DEBBIE JOB#: [id number] CC: MELLISA
[2017-10-06] MEDS: Enalapril 5mg tab ORAL SCH ×2 (08:59→21:33)
[2017-10-06] MEDS: Spironolactone 25mg tab ORAL SCH (08:59)
[2017-10-06] MEDS: Carvedilol 12.5mg tab ORAL SCH ×2 (08:59→21:33)
[2017-10-06] MEDS: Levemir Flexpen SUBQ SCH (09:00)
--- NOTE | 2017-10-06 09:03 | General Progress Note ---
Assessment/Plan Problem List: (1) Jaundice ICD Codes: R17 - Unspecified jaundice SNOMED: 91613895 (2) New onset type 2 diabetes mellitus ICD Codes: E11.9 - Type 2 diabetes mellitus without complications SNOMED: 76605325 (3) Acute exacerbation of CHF (congestive heart failure) ICD Codes: I50.9 - Heart failure, unspecified SNOMED: 59387179 Qualifiers: Qualified Codes: I50.9 - Heart failure, unspecified (4) UTI (urinary tract infection) ICD Codes: N39.0 - Urinary tract infection, site not specified SNOMED: 13443466 Qualifiers: Qualified Codes: N30.00 - Acute cystitis without hematuria (5) Proteinuria ICD Codes: R80.9 - Proteinuria, unspecified SNOMED: 98038682 Qualifiers: Qualified Codes: R80.9 - Proteinuria, unspecified Assessment/Plan continue Levemir 12 units daily continue Novolog 4 units ac tid continue NISS Subjective Allergies: Coded Allergies: UNABLE TO ASSESS (Unverified , 10/03/17) All Systems: reviewed and negative except above Subjective events noted Objective Last 24 Hour Vital Signs Date Time Temp Pulse Resp B/P (MAP) Pulse Ox O2 Delivery O2 Flow Rate FiO2 10/06/17 08:59 79 139/83 10/06/17 08:59 139/83 10/06/17 08:02 97.2 79 18 139/83 (101) 95 97.2 10/06/17 04:00 81 10/06/17 04:00 97.5 82 18 130/82 (98) 98 97.5 10/06/17 00:00 98.4 85 18 127/81 (96) 98 98.4 10/06/17 00:00 85 10/05/17 21:12 87 135/84 10/05/17 21:12 135/84 10/05/17 21:00 Room Air 10/05/17 20:00 10/05/17 20:00 87 10/05/17 20:00 98.0 88 18 133/77 (95) 97 98.0 10/05/17 16:00 97.5 85 20 135/84 (101) 94 97.5 10/05/17 16:00 85 10/05/17 12:00 87 10/05/17 12:00 97.7 86 20 147/85 (105) 97 97.7 Intake and Output 10/05/17 10/06/17 19:00 07:00 Intake Total 520 ml Balance 520 ml Intake Oral 520 ml # Voids 3 3 # Bowel Movements 1 Laboratory Tests 10/06/17 06:50: White Blood Count 7.9, Red Blood Count 4.68, Hemoglobin 14.7, Hematocrit 45.3, Mean Corpuscular Volume 97, Mean Corpuscular Hemoglobin 31.4H, Mean Corpuscular Hemoglobin Concent 32.4, Red Cell Distribution Width 15.4H, Platelet Count 197, Mean Platelet Volume 8.7, Neutrophils (%) (Auto) 60.9, Lymphocytes (%) (Auto) 26.1, Monocytes (%) (Auto) 10.7H, Eosinophils (%) (Auto) 1.0, Basophils (%) ( Auto) 1.3, Sodium Level 134L, Potassium Level 3.7, Chloride Level 98, Carbon Dioxide Level 28, Anion Gap 8, Blood Urea Nitrogen 22H, Creatinine 0.3L, Estimat Glomerular Filtration Rate > 60, Glucose Level 97#, Calcium Level 8.4L, Total Bilirubin 15.0H, Direct Bilirubin 12.6H, Aspartate Amino Transf (AST/SGOT ) 148H, Alanine Aminotransferase (ALT/SGPT) 227H, Alkaline Phosphatase 1061H, Total Protein 5.5L, Albumin 1.7L, Globulin 3.8, Albumin/Globulin Ratio 0.4L Height (Feet): 5 Height (Inches): 1.00 Weight (Pounds): 164 General Appearance: no apparent distress Neck: normal alignment Cardiovascular: normal rate Abdomen: normal bowel sounds Pelvis: normal external exam Objective Current Medications Medications (Trade) Dose Ordered Sig/Dutch Route PRN Reason Start Time Stop Time Status Last Admin Dose Admin Carvedilol (Coreg) 12.5 mg EVERY 12 HOURS ORAL 10/05/17 21:00 11/03/17 08:59 10/06/17 08:59 Ceftriaxone Sodium 1 gm/ Dextrose 55 ml @ 110 mls/hr Q24H IVPB 10/05/17 14:30 10/12/17 14:29 10/05/17 15:59 Clotrimazole (Lotrimin) 1 applic THREE TIMES A DAY TOPIC 10/05/17 18:00 11/04/17 17:59 10/06/17 09:01 Dextrose (Dextrose 50%) 25 ml STAT PRN IV Hypoglycemia 10/04/17 06:30 11/03/17 06:29 Dextrose (Dextrose 50%) 50 ml STAT PRN IV Hypoglycemia 10/04/17 06:30 11/03/17 06:29 Diphenhydramine HCl (Benadryl) 50 mg HSPRN PRN ORAL Insomnia 10/05/17 21:30 11/04/17 21:29 Enalapril Maleate (Vasotec) 5 mg EVERY 12 HOURS ORAL 10/04/17 21:00 11/03/17 08:59 10/06/17 08:59 Famotidine (Pepcid) 20 mg BID ORAL 10/04/17 18:00 11/03/17 17:59 10/06/17 08:59 Furosemide (Lasix) 20 mg DAILY IV 10/04/17 09:00 11/03/17 08:59 10/06/17 09:00 Gadobutrol (Gadavist) 7.5 mmol NOW PRN IV Radiology Procedure 10/05/17 14:45 10/09/17 14:40 Hydralazine HCl (Apresoline) 25 mg Q4H PRN ORAL SBP > 160 10/04/17 11:00 11/03/17 10:59 Insulin Aspart (NovoLOG) BEFORE MEALS AND HS SUBQ 10/04/17 06:30 11/03/17 06:29 10/05/17 21:14 Insulin Aspart (NovoLOG) 4 units NOVOTIAC SUBQ 10/04/17 07:00 11/03/17 06:59 10/05/17 17:45 Insulin Detemir (Levemir) 12 units DAILY SUBQ 10/04/17 09:00 11/03/17 08:59 10/06/17 09:00 Iopamidol (Isovue-300 100ml) 100 ml NOW PRN INJ Radiology Procedure 10/03/17 23:45 Spironolactone (Aldactone) 25 mg DAILY ORAL 10/05/17 09:00 11/04/17 08:59 10/06/17 08:59 Tramadol HCl (Ultram) 25 mg Q6H PRN ORAL severe pain 10/04/17 10:00 10/11/17 09:59 10/05/17 21:26 Item Value Date Time Bedside Blood Glucose 147 mg/dl H 10/06/17 0900 Bedside Blood Glucose 131 mg/dl H 10/05/17 2114 Bedside Blood Glucose 306 mg/dl H 10/05/17 1745 Bedside Blood Glucose 290 mg/dl H 10/05/17 1209 Bedside Blood Glucose 231 mg/dl H 10/05/17 0904 Bedside Blood Glucose 231 mg/dl H 10/05/17 0640 Rad Mccarthy MD Oct 06, 2017 09:03
--- NOTE | 2017-10-06 11:04 | Infectious Diseases Prog Note ---
Assessment/Plan Assessment/Plan A; E. coli UTI Groin candidal rash Jaundice DM type 2 CHF P: Continue Rocephin will f/u cultures Subjective Constitutional: Reports: no symptoms Respiratory: Reports: no symptoms Cardiovascular: Reports: no symptoms Gastrointestinal/Abdominal: Reports: no symptoms Musculoskeletal: Reports: pain, other - in legs Allergies: Coded Allergies: UNABLE TO ASSESS (Unverified , 10/03/17) Objective Vital Signs Last 24 Hour Vital Signs Date Time Temp Pulse Resp B/P (MAP) Pulse Ox O2 Delivery O2 Flow Rate FiO2 10/06/17 09:00 Room Air 10/06/17 08:59 79 139/83 10/06/17 08:59 139/83 10/06/17 08:02 97.2 79 18 139/83 (101) 95 97.2 10/06/17 08:00 81 10/06/17 04:00 81 10/06/17 04:00 97.5 82 18 130/82 (98) 98 97.5 10/06/17 00:00 98.4 85 18 127/81 (96) 98 98.4 10/06/17 00:00 85 10/05/17 21:12 87 135/84 10/05/17 21:12 135/84 10/05/17 21:00 Room Air 10/05/17 20:00 10/05/17 20:00 87 10/05/17 20:00 98.0 88 18 133/77 (95) 97 98.0 10/05/17 16:00 97.5 85 20 135/84 (101) 94 97.5 10/05/17 16:00 85 10/05/17 12:00 87 10/05/17 12:00 97.7 86 20 147/85 (105) 97 97.7 Height (Feet): 5 Height (Inches): 1.00 Weight (Pounds): 164 General Appearance: no acute distress HEENT: mucous membranes moist, other - icterus Respiratory/Chest: lungs clear Cardiovascular: normal rate Abdomen: soft, non tender Extremities: other - edema of legs Skin: other - bilateral groin rash Neurologic/Psychiatric: alert, oriented x 3, responsive Microbiology Date/Time Source Procedure Growth Status 10/03/17 21:25 Urine,Clean Catch Urine Culture - Preliminary Escherichia Coli Gram Negative Bacillus 2 Streptococcus Species Resulted Laboratory Tests Test 10/06/17 06:50 White Blood Count 7.9 K/UL (4.8-10.8) Red Blood Count 4.68 M/UL (4.20-5.40) Hemoglobin 14.7 G/DL (12.0-16.0) Hematocrit 45.3 % (37.0-47.0) Mean Corpuscular Volume 97 FL (80-99) Mean Corpuscular Hemoglobin 31.4 PG (27.0-31.0) H Mean Corpuscular Hemoglobin Concent 32.4 G/DL (32.0-36.0) Red Cell Distribution Width 15.4 % (11.6-14.8) H Platelet Count 197 K/UL (150-450) Mean Platelet Volume 8.7 FL (6.5-10.1) Neutrophils (%) (Auto) 60.9 % (45.0-75.0) Lymphocytes (%) (Auto) 26.1 % (20.0-45.0) Monocytes (%) (Auto) 10.7 % (1.0-10.0) H Eosinophils (%) (Auto) 1.0 % (0.0-3.0) Basophils (%) (Auto) 1.3 % (0.0-2.0) Sodium Level 134 MMOL/L (136-145) L Potassium Level 3.7 MMOL/L (3.5-5.1) Chloride Level 98 MMOL/L (98-107) Carbon Dioxide Level 28 MMOL/L (21-32) Anion Gap 8 mmol/L (5-15) Blood Urea Nitrogen 22 mg/dL (7-18) H Creatinine 0.3 MG/DL (0.55-1.30) L Estimat Glomerular Filtration Rate > 60 mL/min (>60) Glucose Level 97 MG/DL (74-106) # Calcium Level 8.4 MG/DL (8.5-10.1) L Total Bilirubin 15.0 MG/DL (0.2-1.0) H Direct Bilirubin 12.6 MG/DL (0.0-0.3) H Aspartate Amino Transf (AST/SGOT) 148 U/L (15-37) H Alanine Aminotransferase (ALT/SGPT) 227 U/L (12-78) H Alkaline Phosphatase 1061 U/L (46-116) H Total Protein 5.5 G/DL (6.4-8.2) L Albumin 1.7 G/DL (3.4-5.0) L Globulin 3.8 g/dL Albumin/Globulin Ratio 0.4 (1.0-2.7) L Current Medications Medications (Trade) Dose Ordered Sig/Dutch Route PRN Reason Start Time Stop Time Status Last Admin Dose Admin Carvedilol (Coreg) 12.5 mg EVERY 12 HOURS ORAL 10/05/17 21:00 11/03/17 08:59 10/06/17 08:59 Ceftriaxone Sodium 1 gm/ Dextrose 55 ml @ 110 mls/hr Q24H IVPB 10/05/17 14:30 10/12/17 14:29 10/05/17 15:59 Clotrimazole (Lotrimin) 1 applic THREE TIMES A DAY TOPIC 10/05/17 18:00 11/04/17 17:59 10/06/17 09:01 Dextrose (Dextrose 50%) 25 ml STAT PRN IV Hypoglycemia 10/04/17 06:30 11/03/17 06:29 Dextrose (Dextrose 50%) 50 ml STAT PRN IV Hypoglycemia 10/04/17 06:30 11/03/17 06:29 Diphenhydramine HCl (Benadryl) 50 mg HSPRN PRN ORAL Insomnia 10/05/17 21:30 11/04/17 21:29 Enalapril Maleate (Vasotec) 5 mg EVERY 12 HOURS ORAL 10/04/17 21:00 11/03/17 08:59 10/06/17 08:59 Famotidine (Pepcid) 20 mg BID ORAL 10/04/17 18:00 11/03/17 17:59 10/06/17 08:59 Furosemide (Lasix) 20 mg DAILY IV 10/04/17 09:00 11/03/17 08:59 10/06/17 09:00 Gadobutrol (Gadavist) 7.5 mmol NOW PRN IV Radiology Procedure 10/05/17 14:45 10/09/17 14:40 Hydralazine HCl (Apresoline) 25 mg Q4H PRN ORAL SBP > 160 10/04/17 11:00 11/03/17 10:59 Insulin Aspart (NovoLOG) BEFORE MEALS AND HS SUBQ 8/22/18 06:30 11/03/17 06:29 10/05/17 21:14 Insulin Aspart (NovoLOG) 4 units NOVOTIAC SUBQ 10/04/17 07:00 11/03/17 06:59 10/05/17 17:45 Insulin Detemir (Levemir) 12 units DAILY SUBQ 10/04/17 09:00 11/03/17 08:59 10/06/17 09:00 Iopamidol (Isovue-300 100ml) 100 ml NOW PRN INJ Radiology Procedure 10/03/17 23:45 Spironolactone (Aldactone) 25 mg DAILY ORAL 10/05/17 09:00 11/04/17 08:59 10/06/17 08:59 Tramadol HCl (Ultram) 25 mg Q6H PRN ORAL severe pain 10/04/17 10:00 10/11/17 09:59 10/05/17 21:26 Ranjeet Patel MD Oct 06, 2017 11:04
[2017-10-06 12:00] VITALS: BP 129/66
--- NOTE | 2017-10-06 12:05 | Nephrology Progress Note ---
Assessment/Plan Problem List: (1) Proteinuria Assessment: Bilateral pleural effusions (2) UTI (urinary tract infection) (3) Jaundice (4) Acute exacerbation of CHF (congestive heart failure) (5) LFT elevation Assessment Patient has Proteinuria and Hypoalbuminemia admitted with: Acute exacerbation of CHF (congestive heart failure) Has UTI (urinary tract infection) New onset type 2 diabetes mellitus Anasarca , Jaundice Likely Cirrhosis Plan Adjust BP meds- Optimize cardiac status- GI advise- had liver Bx Keep BS in check slow diuresis 2D echo- Global left ventricular hypokinesis . Left ventricular ejection fraction estimated to be 45 %. Kidney HUNG Global left ventricular hypokinesis . Left ventricular ejection fraction estimated to be 45 %. Moderate left ventricular hypertrophy by 2-D. per orders Subjective ROS Limited/Unobtainable: No Constitutional: Reports: malaise Objective Objective Last 24 Hour Vital Signs Date Time Temp Pulse Resp B/P (MAP) Pulse Ox O2 Delivery O2 Flow Rate FiO2 10/06/17 09:00 Room Air 10/06/17 08:59 79 139/83 10/06/17 08:59 139/83 10/06/17 08:02 97.2 79 18 139/83 (101) 95 97.2 10/06/17 08:00 81 10/06/17 04:00 81 10/06/17 04:00 97.5 82 18 130/82 (98) 98 97.5 10/06/17 00:00 98.4 85 18 127/81 (96) 98 98.4 10/06/17 00:00 85 10/05/17 21:12 87 135/84 10/05/17 21:12 135/84 10/05/17 21:00 Room Air 10/05/17 20:00 10/05/17 20:00 87 10/05/17 20:00 98.0 88 18 133/77 (95) 97 98.0 10/05/17 16:00 97.5 85 20 135/84 (101) 94 97.5 10/05/17 16:00 85 Intake and Output 10/05/17 10/06/17 19:00 07:00 Intake Total 520 ml Balance 520 ml Intake Oral 520 ml # Voids 3 3 # Bowel Movements 1 Laboratory Tests 10/06/17 06:50: White Blood Count 7.9, Red Blood Count 4.68, Hemoglobin 14.7, Hematocrit 45.3, Mean Corpuscular Volume 97, Mean Corpuscular Hemoglobin 31.4H, Mean Corpuscular Hemoglobin Concent 32.4, Red Cell Distribution Width 15.4H, Platelet Count 197, Mean Platelet Volume 8.7, Neutrophils (%) (Auto) 60.9, Lymphocytes (%) (Auto) 26.1, Monocytes (%) (Auto) 10.7H, Eosinophils (%) (Auto) 1.0, Basophils (%) ( Auto) 1.3, Sodium Level 134L, Potassium Level 3.7, Chloride Level 98, Carbon Dioxide Level 28, Anion Gap 8, Blood Urea Nitrogen 22H, Creatinine 0.3L, Estimat Glomerular Filtration Rate > 60, Glucose Level 97#, Calcium Level 8.4L, Total Bilirubin 15.0H, Direct Bilirubin 12.6H, Aspartate Amino Transf (AST/SGOT ) 148H, Alanine Aminotransferase (ALT/SGPT) 227H, Alkaline Phosphatase 1061H, Total Protein 5.5L, Albumin 1.7L, Globulin 3.8, Albumin/Globulin Ratio 0.4L Height (Feet): 5 Height (Inches): 1.00 Weight (Pounds): 164 General Appearance: no apparent distress Cardiovascular: normal rate Respiratory/Chest: decreased breath sounds Abdomen: distended Bryan Scanlon MD Oct 06, 2017 12:05
--- NOTE | 2017-10-06 13:13 | General Progress Note ---
Assessment/Plan Problem List: (1) Acute exacerbation of CHF (congestive heart failure) ICD Codes: I50.9 - Heart failure, unspecified SNOMED: 90350841 Qualifiers: Qualified Codes: I50.9 - Heart failure, unspecified (2) New onset type 2 diabetes mellitus ICD Codes: E11.9 - Type 2 diabetes mellitus without complications SNOMED: 72055312 (3) UTI (urinary tract infection) ICD Codes: N39.0 - Urinary tract infection, site not specified SNOMED: 75372166 Qualifiers: Qualified Codes: N30.00 - Acute cystitis without hematuria Status: progressing Assessment/Plan consulted id for uti acute chf exacerbation is improving liver biopsy elev lft not stable for dc Subjective Allergies: Coded Allergies: UNABLE TO ASSESS (Unverified , 10/03/17) Subjective edema Objective Last 24 Hour Vital Signs Date Time Temp Pulse Resp B/P (MAP) Pulse Ox O2 Delivery O2 Flow Rate FiO2 10/06/17 12:00 97.8 69 18 129/66 (87) 96 97.8 10/06/17 09:00 Room Air 10/06/17 08:59 79 139/83 10/06/17 08:59 139/83 10/06/17 08:02 97.2 79 18 139/83 (101) 95 97.2 10/06/17 08:00 81 10/06/17 04:00 81 10/06/17 04:00 97.5 82 18 130/82 (98) 98 97.5 10/06/17 00:00 98.4 85 18 127/81 (96) 98 98.4 10/06/17 00:00 85 10/05/17 21:12 87 135/84 10/05/17 21:12 135/84 10/05/17 21:00 Room Air 10/05/17 20:00 10/05/17 20:00 87 10/05/17 20:00 98.0 88 18 133/77 (95) 97 98.0 10/05/17 16:00 97.5 85 20 135/84 (101) 94 97.5 10/05/17 16:00 85 Intake and Output 10/05/17 10/06/17 19:00 07:00 Intake Total 520 ml Balance 520 ml Intake Oral 520 ml # Voids 3 3 # Bowel Movements 1 Laboratory Tests 10/06/17 06:50: White Blood Count 7.9, Red Blood Count 4.68, Hemoglobin 14.7, Hematocrit 45.3, Mean Corpuscular Volume 97, Mean Corpuscular Hemoglobin 31.4H, Mean Corpuscular Hemoglobin Concent 32.4, Red Cell Distribution Width 15.4H, Platelet Count 197, Mean Platelet Volume 8.7, Neutrophils (%) (Auto) 60.9, Lymphocytes (%) (Auto) 26.1, Monocytes (%) (Auto) 10.7H, Eosinophils (%) (Auto) 1.0, Basophils (%) ( Auto) 1.3, Sodium Level 134L, Potassium Level 3.7, Chloride Level 98, Carbon Dioxide Level 28, Anion Gap 8, Blood Urea Nitrogen 22H, Creatinine 0.3L, Estimat Glomerular Filtration Rate > 60, Glucose Level 97#, Calcium Level 8.4L, Total Bilirubin 15.0H, Direct Bilirubin 12.6H, Aspartate Amino Transf (AST/SGOT ) 148H, Alanine Aminotransferase (ALT/SGPT) 227H, Alkaline Phosphatase 1061H, Total Protein 5.5L, Albumin 1.7L, Globulin 3.8, Albumin/Globulin Ratio 0.4L Height (Feet): 5 Height (Inches): 1.00 Weight (Pounds): 164 Cardiovascular: normal rate Respiratory/Chest: lungs clear Abdomen: soft Antonia Barone MD Oct 06, 2017 13:13
--- NOTE | 2017-10-06 13:27 | GI Progress Note ---
Assessment/Plan Problems: (1) LFT elevation ICD Codes: R94.5 - Abnormal results of liver function studies SNOMED: 878779653, 435252485 (2) New onset type 2 diabetes mellitus ICD Codes: E11.9 - Type 2 diabetes mellitus without complications SNOMED: 60610291 (3) Acute exacerbation of CHF (congestive heart failure) ICD Codes: I50.9 - Heart failure, unspecified SNOMED: 35249183 Qualifiers: Qualified Codes: I50.9 - Heart failure, unspecified (4) Jaundice ICD Codes: R17 - Unspecified jaundice SNOMED: 41389909 Status: unchanged Status Narrative Discussed with Dr. Desai. Assessment/Plan MRI reviewed >> mainly unremarkable MRCP not done, patient had refused preliminary pathology report >> highly suggestive of autoimmune, will send a AMA utox negative GGT elevation abdominal U/S reviewed >> * Smooth liver contour. No focal hepatic mass lesion appreciated sonographically. No biliary ductal dilatation. * No cholelithiasis or evidence to suggest acute cholecystitis. * Hypoechoic structure in the pancreatic head may correspond with the prominent peripancreatic lymph node noted on concurrent CT of the abdomen. fu biopsy reports trend LFTs hep panel DM mgmt EDWARD, IgG ppi fu labs, AFP The patient was seen and examined at bedside and all new and available data was reviewed in the patients chart. I agree with the above findings, impression and plan. (Patient seen earlier today. Signature stamp does not reflect patient encounter time.). - Daniel Desai MD Subjective Subjective depressed jaundice wants to go home Objective Last 24 Hour Vital Signs Date Time Temp Pulse Resp B/P (MAP) Pulse Ox O2 Delivery O2 Flow Rate FiO2 10/06/17 12:00 97.8 69 18 129/66 (87) 96 97.8 10/06/17 09:00 Room Air 10/06/17 08:59 79 139/83 10/06/17 08:59 139/83 10/06/17 08:02 97.2 79 18 139/83 (101) 95 97.2 10/06/17 08:00 81 10/06/17 04:00 81 10/06/17 04:00 97.5 82 18 130/82 (98) 98 97.5 10/06/17 00:00 98.4 85 18 127/81 (96) 98 98.4 10/06/17 00:00 85 10/05/17 21:12 87 135/84 10/05/17 21:12 135/84 10/05/17 21:00 Room Air 10/05/17 20:00 10/05/17 20:00 87 10/05/17 20:00 98.0 88 18 133/77 (95) 97 98.0 10/05/17 16:00 97.5 85 20 135/84 (101) 94 97.5 10/05/17 16:00 85 Intake and Output 10/05/17 10/06/17 19:00 07:00 Intake Total 520 ml Balance 520 ml Intake Oral 520 ml # Voids 3 3 # Bowel Movements 1 Laboratory Tests Test 10/06/17 06:50 White Blood Count 7.9 K/UL (4.8-10.8) Red Blood Count 4.68 M/UL (4.20-5.40) Hemoglobin 14.7 G/DL (12.0-16.0) Hematocrit 45.3 % (37.0-47.0) Mean Corpuscular Volume 97 FL (80-99) Mean Corpuscular Hemoglobin 31.4 PG (27.0-31.0) H Mean Corpuscular Hemoglobin Concent 32.4 G/DL (32.0-36.0) Red Cell Distribution Width 15.4 % (11.6-14.8) H Platelet Count 197 K/UL (150-450) Mean Platelet Volume 8.7 FL (6.5-10.1) Neutrophils (%) (Auto) 60.9 % (45.0-75.0) Lymphocytes (%) (Auto) 26.1 % (20.0-45.0) Monocytes (%) (Auto) 10.7 % (1.0-10.0) H Eosinophils (%) (Auto) 1.0 % (0.0-3.0) Basophils (%) (Auto) 1.3 % (0.0-2.0) Sodium Level 134 MMOL/L (136-145) L Potassium Level 3.7 MMOL/L (3.5-5.1) Chloride Level 98 MMOL/L (98-107) Carbon Dioxide Level 28 MMOL/L (21-32) Anion Gap 8 mmol/L (5-15) Blood Urea Nitrogen 22 mg/dL (7-18) H Creatinine 0.3 MG/DL (0.55-1.30) L Estimat Glomerular Filtration Rate > 60 mL/min (>60) Glucose Level 97 MG/DL (74-106) # Calcium Level 8.4 MG/DL (8.5-10.1) L Total Bilirubin 15.0 MG/DL (0.2-1.0) H Direct Bilirubin 12.6 MG/DL (0.0-0.3) H Aspartate Amino Transf (AST/SGOT) 148 U/L (15-37) H Alanine Aminotransferase (ALT/SGPT) 227 U/L (12-78) H Alkaline Phosphatase 1061 U/L (46-116) H Total Protein 5.5 G/DL (6.4-8.2) L Albumin 1.7 G/DL (3.4-5.0) L Globulin 3.8 g/dL Albumin/Globulin Ratio 0.4 (1.0-2.7) L Height (Feet): 5 Height (Inches): 1.00 Weight (Pounds): 164 General Appearance: WD/WN, no apparent distress, alert Cardiovascular: normal rate Respiratory/Chest: normal breath sounds, no respiratory distress Abdominal Exam: normal bowel sounds, non tender, soft Extremities: normal range of motion, non-tender Neyda Mackey NP Oct 06, 2017 13:27
--- NOTE | 2017-10-06 14:25 | Pulmonology Progress Note ---
Assessment/Plan Problems: (1) New onset type 2 diabetes mellitus (2) Acute exacerbation of CHF (congestive heart failure) (3) UTI (urinary tract infection) (4) Proteinuria (5) Jaundice (6) LFT elevation Assessment/Plan ASSESSMENT: B pleural effusion in the setting of decompensated HF, cirrhosis, hypoalbuminemia, likely all 2/2 [facility] [place], [place] CHF with ADHF Anasarca and generalized edema Abnormal LFT's Hypoalbuminemia Proteinuria UTI H/O EtOH abuse PLAN: Insufficient fluid for thoracentesis Monitor effusion with diuresis Monitor volumes, keep as negative as able F/U Liver Bx results F/U cards, renal and GI recs Continue CTx for UTI Aspiration precautions DVT Px: Hep SQ FC Subjective Allergies: Coded Allergies: UNABLE TO ASSESS (Unverified , 10/03/17) Subjective AFVSS, stable on RA, imaging noted, S/P liver Bx - per GI prelim path c/w autoimmune hepatitis, LFT's wrose Less SOB, no cough, no CP, no F/C Edema better Objective Last 24 Hour Vital Signs Date Time Temp Pulse Resp B/P (MAP) Pulse Ox O2 Delivery O2 Flow Rate FiO2 10/06/17 12:00 97.8 69 18 129/66 (87) 96 97.8 10/06/17 09:00 Room Air 10/06/17 08:59 79 139/83 10/06/17 08:59 139/83 10/06/17 08:02 97.2 79 18 139/83 (101) 95 97.2 10/06/17 08:00 81 10/06/17 04:00 81 10/06/17 04:00 97.5 82 18 130/82 (98) 98 97.5 10/06/17 00:00 98.4 85 18 127/81 (96) 98 98.4 10/06/17 00:00 85 10/05/17 21:12 87 135/84 10/05/17 21:12 135/84 10/05/17 21:00 Room Air 10/05/17 20:00 10/05/17 20:00 87 10/05/17 20:00 98.0 88 18 133/77 (95) 97 98.0 10/05/17 16:00 97.5 85 20 135/84 (101) 94 97.5 10/05/17 16:00 85 Intake and Output 8/23/18 8/24/18 19:00 07:00 Intake Total 520 ml Balance 520 ml Intake Oral 520 ml # Voids 3 3 # Bowel Movements 1 General Appearance: WD/WN, no acute distress HEENT: normocephalic, atraumatic, anicteric, mucous membranes moist, PERRL, other - scleral icterus Respiratory/Chest: chest wall non-tender, lungs clear, normal breath sounds, no respiratory distress, no accessory muscle use Cardiovascular: normal peripheral pulses, normal rate, regular rhythm Abdomen: normal bowel sounds, soft, non tender, no organomegaly, non distended , no mass Extremities: no cyanosis, no clubbing, no edema Microbiology Date/Time Source Procedure Growth Status 10/03/17 21:25 Urine,Clean Catch Urine Culture - Preliminary Escherichia Coli Gram Negative Bacillus 2 Streptococcus Species Resulted Laboratory Tests 10/06/17 06:50: White Blood Count 7.9, Red Blood Count 4.68, Hemoglobin 14.7, Hematocrit 45.3, Mean Corpuscular Volume 97, Mean Corpuscular Hemoglobin 31.4H, Mean Corpuscular Hemoglobin Concent 32.4, Red Cell Distribution Width 15.4H, Platelet Count 197, Mean Platelet Volume 8.7, Neutrophils (%) (Auto) 60.9, Lymphocytes (%) (Auto) 26.1, Monocytes (%) (Auto) 10.7H, Eosinophils (%) (Auto) 1.0, Basophils (%) ( Auto) 1.3, Sodium Level 134L, Potassium Level 3.7, Chloride Level 98, Carbon Dioxide Level 28, Anion Gap 8, Blood Urea Nitrogen 22H, Creatinine 0.3L, Estimat Glomerular Filtration Rate > 60, Glucose Level 97#, Calcium Level 8.4L, Total Bilirubin 15.0H, Direct Bilirubin 12.6H, Aspartate Amino Transf (AST/SGOT ) 148H, Alanine Aminotransferase (ALT/SGPT) 227H, Alkaline Phosphatase 1061H, Total Protein 5.5L, Albumin 1.7L, Globulin 3.8, Albumin/Globulin Ratio 0.4L Current Medications Medications (Trade) Dose Ordered Sig/Dutch Route PRN Reason Start Time Stop Time Status Last Admin Dose Admin Carvedilol (Coreg) 12.5 mg EVERY 12 HOURS ORAL 10/05/17 21:00 11/03/17 08:59 10/06/17 08:59 Ceftriaxone Sodium 1 gm/ Dextrose 55 ml @ 110 mls/hr Q24H IVPB 10/05/17 14:30 10/12/17 14:29 10/05/17 15:59 Clotrimazole (Lotrimin) 1 applic THREE TIMES A DAY TOPIC 10/05/17 18:00 11/04/17 17:59 10/06/17 12:59 Dextrose (Dextrose 50%) 25 ml STAT PRN IV Hypoglycemia 10/04/17 06:30 11/03/17 06:29 Dextrose (Dextrose 50%) 50 ml STAT PRN IV Hypoglycemia 10/04/17 06:30 11/03/17 06:29 Diphenhydramine HCl (Benadryl) 50 mg HSPRN PRN ORAL Insomnia 10/05/17 21:30 11/04/17 21:29 Duloxetine HCl (Cymbalta) 30 mg DAILY ORAL 10/07/17 12:46 11/06/17 12:45 Enalapril Maleate (Vasotec) 5 mg EVERY 12 HOURS ORAL 10/04/17 21:00 11/03/17 08:59 10/06/17 08:59 Famotidine (Pepcid) 20 mg BID ORAL 10/04/17 18:00 11/03/17 17:59 10/06/17 08:59 Furosemide (Lasix) 20 mg DAILY IV 10/04/17 09:00 11/03/17 08:59 10/06/17 09:00 Gadobutrol (Gadavist) 7.5 mmol NOW PRN IV Radiology Procedure 10/05/17 14:45 10/09/17 14:40 Hydralazine HCl (Apresoline) 25 mg Q4H PRN ORAL SBP > 160 10/04/17 11:00 11/03/17 10:59 Insulin Aspart (NovoLOG) BEFORE MEALS AND HS SUBQ 10/04/17 06:30 11/03/17 06:29 10/06/17 13:00 Insulin Aspart (NovoLOG) 4 units NOVOTIAC SUBQ 10/04/17 07:00 11/03/17 06:59 10/06/17 12:59 Insulin Detemir (Levemir) 12 units DAILY SUBQ 10/04/17 09:00 11/03/17 08:59 10/06/17 09:00 Iopamidol (Isovue-300 100ml) 100 ml NOW PRN INJ Radiology Procedure 10/03/17 23:45 Spironolactone (Aldactone) 25 mg DAILY ORAL 10/05/17 09:00 11/04/17 08:59 10/06/17 08:59 Tramadol HCl (Ultram) 25 mg Q6H PRN ORAL severe pain 10/04/17 10:00 10/11/17 09:59 10/05/17 21:26 Abhinav Bullock MD Oct 06, 2017 14:25
[2017-10-06] MEDS: cefTRIAXone 1 GM in D5W 55 ML IVPB SCH (15:03)
[2017-10-06 16:00] VITALS: BP 129/66
[2017-10-06 20:00] VITALS: BP 141/79
[2017-10-06] MEDS: traMADol 50mg tab ORAL PRN (21:33)
--- NOTE | 2017-10-06 22:30 | Progress Note ---
DATE: 10/06/2017 SUBJECTIVE: The patient is withdrawn, isolative, presents with depressed mood, anhedonia, worthlessness, hopelessness, decreased energy, and amotivated. She denied any suicidal or homicidal ideation. She stated that her friends mainly were older age and they all started passing away. The patient feels wobbly. She does not have her companionship as before as her friends have been dying. She never had any children. long ago. Feels depressed, withdrawn, and isolative. MENTAL STATUS EXAM: Alert and oriented times self, place, and situation. Mood is depressed. Affect is constricted. Congruent with mood. Thought process is concrete. Thought content, no suicidal or homicidal ideation. ASSESSMENT: Major depressive disorder. PLAN: The patient will be continued on Cymbalta. She may refuse the medication. Provided her with reality orientation and supportive therapy. Rodrigo Maldonado M.D. DR: CARY JOB#: [id number] CC:
--- NOTE | 2017-10-06 23:50 | Cardiology Progress Note ---
Assessment/Plan Assessment/Plan 1. Dyspnea due to acute heart failure with preserved ejection fraction, given the findings of chest x-ray with cardiomegaly and pulmonary edema as well as severely elevated beta-natriuretic peptide. Continue the diuretics. 2. Hypertensive heart disease. 3. History of fibromyalgia. Subjective Subjective Sinus rhythm at 85. Objective Last 24 Hour Vital Signs Date Time Temp Pulse Resp B/P (MAP) Pulse Ox O2 Delivery O2 Flow Rate FiO2 10/06/17 21:33 79 141/79 10/06/17 21:33 141/79 10/06/17 21:33 97.4 10/06/17 21:00 Room Air 10/06/17 20:00 97.4 85 23 141/79 (99) 98 97.4 10/06/17 20:00 79 10/06/17 16:01 80 10/06/17 16:00 97.8 69 18 129/66 (87) 96 97.8 10/06/17 12:00 97.8 69 18 129/66 (87) 96 97.8 10/06/17 12:00 81 10/06/17 09:00 Room Air 10/06/17 08:59 79 139/83 10/06/17 08:59 139/83 10/06/17 08:02 97.2 79 18 139/83 (101) 95 97.2 10/06/17 08:00 81 10/06/17 04:00 81 10/06/17 04:00 97.5 82 18 130/82 (98) 98 97.5 10/06/17 00:00 98.4 85 18 127/81 (96) 98 98.4 10/06/17 00:00 85 Intake and Output 10/05/17 10/06/17 19:00 07:00 Intake Total 520 ml Balance 520 ml Intake Oral 520 ml # Voids 3 3 # Bowel Movements 1 2D Echo: EF 45%, global LV HK, Mod LVH, RVSP 29 mmHg, Mild MR/AR Laboratory Tests Test 10/06/17 06:50 White Blood Count 7.9 K/UL (4.8-10.8) Red Blood Count 4.68 M/UL (4.20-5.40) Hemoglobin 14.7 G/DL (12.0-16.0) Hematocrit 45.3 % (37.0-47.0) Mean Corpuscular Volume 97 FL (80-99) Mean Corpuscular Hemoglobin 31.4 PG (27.0-31.0) H Mean Corpuscular Hemoglobin Concent 32.4 G/DL (32.0-36.0) Red Cell Distribution Width 15.4 % (11.6-14.8) H Platelet Count 197 K/UL (150-450) Mean Platelet Volume 8.7 FL (6.5-10.1) Neutrophils (%) (Auto) 60.9 % (45.0-75.0) Lymphocytes (%) (Auto) 26.1 % (20.0-45.0) Monocytes (%) (Auto) 10.7 % (1.0-10.0) H Eosinophils (%) (Auto) 1.0 % (0.0-3.0) Basophils (%) (Auto) 1.3 % (0.0-2.0) Sodium Level 134 MMOL/L (136-145) L Potassium Level 3.7 MMOL/L (3.5-5.1) Chloride Level 98 MMOL/L (98-107) Carbon Dioxide Level 28 MMOL/L (21-32) Anion Gap 8 mmol/L (5-15) Blood Urea Nitrogen 22 mg/dL (7-18) H Creatinine 0.3 MG/DL (0.55-1.30) L Estimat Glomerular Filtration Rate > 60 mL/min (>60) Glucose Level 97 MG/DL (74-106) # Calcium Level 8.4 MG/DL (8.5-10.1) L Total Bilirubin 15.0 MG/DL (0.2-1.0) H Direct Bilirubin 12.6 MG/DL (0.0-0.3) H Aspartate Amino Transf (AST/SGOT) 148 U/L (15-37) H Alanine Aminotransferase (ALT/SGPT) 227 U/L (12-78) H Alkaline Phosphatase 1061 U/L (46-116) H Total Protein 5.5 G/DL (6.4-8.2) L Albumin 1.7 G/DL (3.4-5.0) L Globulin 3.8 g/dL Albumin/Globulin Ratio 0.4 (1.0-2.7) L Objective HEENT: Atraumatic and normocephalic. Pupils are equal, round, and reactive to light and accommodation. There is presence of the icteric sclera. NECK: JVP is elevated above 15 cm. No carotid bruits. Carotid upstrokes 2+ bilaterally. CARDIOVASCULAR: Normal S1, S2. Positive S3 and S4. A 2/6 midsystolic murmur at the left sternal border. PMI is at fourth intercostal space in the midclavicular line. LUNGS: Clear to auscultation bilaterally, although has poor inspiratory. ABDOMEN: Soft, nontender, and nondistended. No hepatosplenomegaly. Positive bowel sounds. EXTREMITIES: There is 2+ bilateral lower extremity edema. Malik Perez MD Oct 06, 2017 23:50
[2017-10-07] MEDS: NovoLOG Insulin Flexpen SUBQ SCH ×5 (06:30→21:00)
--- NOTE | 2017-10-07 07:29 | General Progress Note ---
Assessment/Plan Problem List: (1) Jaundice ICD Codes: R17 - Unspecified jaundice SNOMED: 53137456 (2) New onset type 2 diabetes mellitus ICD Codes: E11.9 - Type 2 diabetes mellitus without complications SNOMED: 82659065 (3) Acute exacerbation of CHF (congestive heart failure) ICD Codes: I50.9 - Heart failure, unspecified SNOMED: 32723439 Qualifiers: Qualified Codes: I50.9 - Heart failure, unspecified (4) UTI (urinary tract infection) ICD Codes: N39.0 - Urinary tract infection, site not specified SNOMED: 39849981 Qualifiers: Qualified Codes: N30.00 - Acute cystitis without hematuria (5) Proteinuria ICD Codes: R80.9 - Proteinuria, unspecified SNOMED: 25910666 Qualifiers: Qualified Codes: R80.9 - Proteinuria, unspecified Assessment/Plan continue Levemir 12 units daily DC Novolog 4 units ac tid start Metformin 500 mg bid start Januvia 100 mg daily continue NISS Subjective Allergies: Coded Allergies: UNABLE TO ASSESS (Unverified , 10/03/17) All Systems: reviewed and negative except above Subjective events noted Objective Last 24 Hour Vital Signs Date Time Temp Pulse Resp B/P (MAP) Pulse Ox O2 Delivery O2 Flow Rate FiO2 10/07/17 04:00 82 10/07/17 04:00 82 10/07/17 00:00 81 10/07/17 00:00 80 10/06/17 21:33 79 141/79 10/06/17 21:33 141/79 10/06/17 21:33 97.4 10/06/17 21:00 Room Air 10/06/17 20:00 97.4 85 23 141/79 (99) 98 97.4 10/06/17 20:00 79 10/06/17 16:01 80 10/06/17 16:00 97.8 69 18 129/66 (87) 96 97.8 10/06/17 12:00 97.8 69 18 129/66 (87) 96 97.8 10/06/17 12:00 81 10/06/17 09:00 Room Air 10/06/17 08:59 79 139/83 10/06/17 08:59 139/83 10/06/17 08:02 97.2 79 18 139/83 (101) 95 97.2 10/06/17 08:00 81 Intake and Output 10/06/17 10/07/17 19:00 07:00 Intake Total 360 ml Balance 360 ml Intake Oral 360 ml # Voids 3 3 # Bowel Movements 2 Laboratory Tests 10/07/17 06:18: White Blood Count [Pending], Red Blood Count [Pending], Hemoglobin [Pending], Hematocrit [Pending], Mean Corpuscular Volume [Pending], Mean Corpuscular Hemoglobin [Pending], Mean Corpuscular Hemoglobin Concent [Pending], Red Cell Distribution Width [Pending], Platelet Count [Pending], Mean Platelet Volume [ Pending], Neutrophils (%) (Auto) [Pending], Lymphocytes (%) (Auto) [Pending], Monocytes (%) (Auto) [Pending], Eosinophils (%) (Auto) [Pending], Basophils (%) (Auto) [Pending], Sodium Level [Pending], Potassium Level [Pending], Chloride Level [Pending], Carbon Dioxide Level [Pending], Blood Urea Nitrogen [Pending], Creatinine [Pending], Estimat Glomerular Filtration Rate [Pending], Glucose Level [Pending], Calcium Level [Pending], Total Bilirubin [Pending], Aspartate Amino Transf (AST/SGOT) [Pending], Alanine Aminotransferase (ALT/SGPT) [Pending] , Alkaline Phosphatase [Pending], Total Protein [Pending], Albumin [Pending], Globulin [Pending], F-Actin IgG Antibody [Pending] Height (Feet): 5 Height (Inches): 1.00 Weight (Pounds): 164 General Appearance: no apparent distress Neck: normal alignment Cardiovascular: normal rate Respiratory/Chest: lungs clear Abdomen: normal bowel sounds Objective Current Medications Medications (Trade) Dose Ordered Sig/Dutch Route PRN Reason Start Time Stop Time Status Last Admin Dose Admin Carvedilol (Coreg) 12.5 mg EVERY 12 HOURS ORAL 10/05/17 21:00 11/03/17 08:59 10/06/17 21:33 Ceftriaxone Sodium 1 gm/ Dextrose 55 ml @ 110 mls/hr Q24H IVPB 10/05/17 14:30 10/12/17 14:29 10/06/17 15:03 Clotrimazole (Lotrimin) 1 applic THREE TIMES A DAY TOPIC 10/05/17 18:00 11/04/17 17:59 10/06/17 18:45 Dextrose (Dextrose 50%) 25 ml STAT PRN IV Hypoglycemia 10/04/17 06:30 11/03/17 06:29 Dextrose (Dextrose 50%) 50 ml STAT PRN IV Hypoglycemia 10/04/17 06:30 11/03/17 06:29 Diphenhydramine HCl (Benadryl) 25 mg Q4H PRN ORAL Itching 10/06/17 14:30 11/05/17 14:29 10/06/17 15:03 Diphenhydramine HCl (Benadryl) 50 mg HSPRN PRN ORAL Insomnia 10/05/17 21:30 11/04/17 21:29 10/06/17 21:33 Duloxetine HCl (Cymbalta) 30 mg DAILY ORAL 10/07/17 12:46 11/06/17 12:45 Enalapril Maleate (Vasotec) 5 mg EVERY 12 HOURS ORAL 10/04/17 21:00 11/03/17 08:59 10/06/17 21:33 Famotidine (Pepcid) 20 mg BID ORAL 10/04/17 18:00 11/03/17 17:59 10/06/17 18:44 Furosemide (Lasix) 20 mg DAILY IV 10/04/17 09:00 11/03/17 08:59 10/06/17 09:00 Gadobutrol (Gadavist) 7.5 mmol NOW PRN IV Radiology Procedure 10/05/17 14:45 10/09/17 14:40 Hydralazine HCl (Apresoline) 25 mg Q4H PRN ORAL SBP > 160 10/04/17 11:00 11/03/17 10:59 Insulin Aspart (NovoLOG) BEFORE MEALS AND HS SUBQ 10/04/17 06:30 11/03/17 06:29 10/07/17 06:30 Insulin Aspart (NovoLOG) 4 units NOVOTIAC SUBQ 10/04/17 07:00 11/03/17 06:59 10/07/17 06:30 Insulin Detemir (Levemir) 12 units DAILY SUBQ 10/04/17 09:00 11/03/17 08:59 10/06/17 09:00 Iopamidol (Isovue-300 100ml) 100 ml NOW PRN INJ Radiology Procedure 10/03/17 23:45 Spironolactone (Aldactone) 25 mg DAILY ORAL 10/05/17 09:00 11/04/17 08:59 10/06/17 08:59 Tramadol HCl (Ultram) 25 mg Q6H PRN ORAL severe pain 10/04/17 10:00 10/11/17 09:59 10/06/17 21:33 Item Value Date Time Bedside Blood Glucose 199 mg/dl H 10/07/17 0630 Bedside Blood Glucose 151 mg/dl H 10/06/17 2137 Bedside Blood Glucose 202 mg/dl H 10/06/17 1649 Bedside Blood Glucose 177 mg/dl H 10/06/17 1300 Bedside Blood Glucose 147 mg/dl H 10/06/17 0900 Rad Mccarthy MD Oct 07, 2017 07:29
[2017-10-07 07:35] LABS: BASOPHILS % (AUTO) 1.2 % (0.0-2.0); EOSINOPHILS % (AUTO) 1.1 % (0.0-3.0); HEMATOCRIT 45.1 % (37.0-47.0); HEMOGLOBIN 14.6 G/DL (12.0-16.0); MEAN CORPUSCULAR VOLUME 96 FL (80-99); MONOCYTES % (AUTO) 10.6 % (1.0-10.0); NEUTROPHILS % (AUTO) 58.1 % (45.0-75.0); PLATELET COUNT 198 K/UL (150-450); RED BLOOD COUNT 4.71 M/UL (4.20-5.40); RED CELL DISTRIBUTION WIDTH 14.9 % (11.6-14.8); WHITE BLOOD COUNT 7.2 K/UL (4.8-10.8)
[2017-10-07 08:00] VITALS: BP 130/74
[2017-10-07 08:08] LABS: ALANINE AMINOTRANSFERASE 231 U/L (12-78); ALBUMIN 1.7 G/DL (3.4-5.0); ALBUMIN/GLOBULIN RATIO 0.5 (1.0-2.7); ALKALINE PHOSPHATASE 1086 U/L (46-116); ANION GAP 7 mmol/L (5-15); ASPARTATE AMINO TRANSFERASE 154 U/L (15-37); BILIRUBIN,TOTAL 15.8 MG/DL (0.2-1.0); BLOOD UREA NITROGEN 22 mg/dL (7-18); CALCIUM 8.3 MG/DL (8.5-10.1); CARBON DIOXIDE 28 MMOL/L (21-32); CHLORIDE 97 MMOL/L (98-107); CREATININE 0.6 MG/DL (0.55-1.30); POTASSIUM 3.5 MMOL/L (3.5-5.1); SODIUM 132 MMOL/L (136-145)
[2017-10-07 08:16] LABS: BILIRUBIN,DIRECT 13.1 MG/DL (0.0-0.3)
[2017-10-07] MEDS: Enalapril 5mg tab ORAL SCH ×2 (09:47→21:04)
[2017-10-07] MEDS: metFORMIN 500mg tab ORAL SCH ×2 (09:47→17:43)
[2017-10-07] MEDS: Spironolactone 25mg tab ORAL SCH (09:47)
[2017-10-07] MEDS: traMADol 50mg tab ORAL PRN (09:48)
[2017-10-07] MEDS: Carvedilol 12.5mg tab ORAL SCH ×2 (09:48→21:04)
[2017-10-07] MEDS: Levemir Flexpen SUBQ SCH (09:57)
--- NOTE | 2017-10-07 10:54 | General Progress Note ---
Assessment/Plan Problem List: (1) Acute exacerbation of CHF (congestive heart failure) ICD Codes: I50.9 - Heart failure, unspecified SNOMED: 70637373 Qualifiers: Qualified Codes: I50.9 - Heart failure, unspecified (2) LFT elevation ICD Codes: R94.5 - Abnormal results of liver function studies SNOMED: 048976832, 610615467 (3) New onset type 2 diabetes mellitus ICD Codes: E11.9 - Type 2 diabetes mellitus without complications SNOMED: 27559694 Status: stable, progressing Assessment/Plan ot pt diet bp bs control cbc bmp am Subjective Constitutional: Reports: weakness Allergies: Coded Allergies: UNABLE TO ASSESS (Unverified , 10/03/17) All Systems: reviewed and negative except above Subjective calm in room Objective Last 24 Hour Vital Signs Date Time Temp Pulse Resp B/P (MAP) Pulse Ox O2 Delivery O2 Flow Rate FiO2 10/07/17 09:48 77 130/74 10/07/17 09:48 97.7 10/07/17 09:47 130/74 10/07/17 08:20 Room Air 10/07/17 08:00 97.7 77 18 130/74 (92) 94 97.7 10/07/17 04:00 82 10/07/17 04:00 82 10/07/17 00:00 81 10/07/17 00:00 80 10/06/17 21:33 79 141/79 10/06/17 21:33 141/79 10/06/17 21:33 97.4 10/06/17 21:00 Room Air 10/06/17 20:00 97.4 85 23 141/79 (99) 98 97.4 10/06/17 20:00 79 10/06/17 16:01 80 10/06/17 16:00 97.8 69 18 129/66 (87) 96 97.8 10/06/17 12:00 97.8 69 18 129/66 (87) 96 97.8 10/06/17 12:00 81 Intake and Output 10/06/17 10/07/17 19:00 07:00 Intake Total 360 ml Balance 360 ml Intake Oral 360 ml # Voids 3 3 # Bowel Movements 2 Laboratory Tests 10/07/17 06:18: White Blood Count 7.2, Red Blood Count 4.71, Hemoglobin 14.6, Hematocrit 45.1, Mean Corpuscular Volume 96, Mean Corpuscular Hemoglobin 31.0, Mean Corpuscular Hemoglobin Concent 32.4, Red Cell Distribution Width 14.9H, Platelet Count 198, Mean Platelet Volume 9.0, Neutrophils (%) (Auto) 58.1, Lymphocytes (%) (Auto) 29.0, Monocytes (%) (Auto) 10.6H, Eosinophils (%) (Auto) 1.1, Basophils (%) ( Auto) 1.2, Sodium Level 132L, Potassium Level 3.5, Chloride Level 97L, Carbon Dioxide Level 28, Anion Gap 7, Blood Urea Nitrogen 22H, Creatinine 0.6#, Estimat Glomerular Filtration Rate > 60, Glucose Level 191H, Calcium Level 8.3L , Total Bilirubin 15.8H, Direct Bilirubin 13.1H, Aspartate Amino Transf (AST/ SGOT) 154H, Alanine Aminotransferase (ALT/SGPT) 231H, Alkaline Phosphatase 1086H , Total Protein 5.3L, Albumin 1.7L, Globulin 3.6, Albumin/Globulin Ratio 0.5L, F -Actin IgG Antibody [Pending] Height (Feet): 5 Height (Inches): 1.00 Weight (Pounds): 164 General Appearance: lethargic EENT: normal ENT inspection Neck: normal alignment Cardiovascular: normal peripheral pulses, normal rate, regular rhythm Respiratory/Chest: chest wall non-tender, lungs clear, normal breath sounds Abdomen: normal bowel sounds, non tender, soft Extremities: normal inspection Edema: no edema noted Arm (L), no edema noted Arm (R), no edema noted Leg (L), no edema noted Leg (R), no edema noted Pedal (L), no edema noted Pedal (R), no edema noted Generalized Neurologic: motor weakness Skin: normal pigmentation, warm/dry Collin Cordova DO Oct 07, 2017 10:54
--- NOTE | 2017-10-07 11:14 | Nephrology Progress Note ---
Assessment/Plan Problem List: (1) Proteinuria Assessment: Bilateral pleural effusions (2) UTI (urinary tract infection) (3) Jaundice (4) Acute exacerbation of CHF (congestive heart failure) Assessment: cardiomyopathy (5) LFT elevation Assessment Patient has Proteinuria and Hypoalbuminemia admitted with: Acute exacerbation of CHF (congestive heart failure) Has UTI (urinary tract infection) New onset type 2 diabetes mellitus Anasarca , Jaundice Likely Cirrhosis Plan Adjust BP meds- Optimize cardiac status- GI advise- had liver Bx Keep BS in check slow diuresis 2D echo- Global left ventricular hypokinesis . Left ventricular ejection fraction estimated to be 45 %. Kidney HUNG Global left ventricular hypokinesis . Left ventricular ejection fraction estimated to be 45 %. Moderate left ventricular hypertrophy by 2-D. per orders Subjective ROS Limited/Unobtainable: No Constitutional: Reports: malaise Objective Objective Last 24 Hour Vital Signs Date Time Temp Pulse Resp B/P (MAP) Pulse Ox O2 Delivery O2 Flow Rate FiO2 10/07/17 09:48 77 130/74 10/07/17 09:48 97.7 10/07/17 09:47 130/74 10/07/17 08:20 Room Air 10/07/17 08:00 97.7 77 18 130/74 (92) 94 97.7 10/07/17 04:00 82 10/07/17 04:00 82 10/07/17 00:00 81 10/07/17 00:00 80 10/06/17 21:33 79 141/79 10/06/17 21:33 141/79 10/06/17 21:33 97.4 10/06/17 21:00 Room Air 10/06/17 20:00 97.4 85 23 141/79 (99) 98 97.4 10/06/17 20:00 79 10/06/17 16:01 80 10/06/17 16:00 97.8 69 18 129/66 (87) 96 97.8 10/06/17 12:00 97.8 69 18 129/66 (87) 96 97.8 10/06/17 12:00 81 Intake and Output 10/06/17 10/07/17 19:00 07:00 Intake Total 360 ml Balance 360 ml Intake Oral 360 ml # Voids 3 3 # Bowel Movements 2 Laboratory Tests 10/07/17 06:18: White Blood Count 7.2, Red Blood Count 4.71, Hemoglobin 14.6, Hematocrit 45.1, Mean Corpuscular Volume 96, Mean Corpuscular Hemoglobin 31.0, Mean Corpuscular Hemoglobin Concent 32.4, Red Cell Distribution Width 14.9H, Platelet Count 198, Mean Platelet Volume 9.0, Neutrophils (%) (Auto) 58.1, Lymphocytes (%) (Auto) 29.0, Monocytes (%) (Auto) 10.6H, Eosinophils (%) (Auto) 1.1, Basophils (%) ( Auto) 1.2, Sodium Level 132L, Potassium Level 3.5, Chloride Level 97L, Carbon Dioxide Level 28, Anion Gap 7, Blood Urea Nitrogen 22H, Creatinine 0.6#, Estimat Glomerular Filtration Rate > 60, Glucose Level 191H, Calcium Level 8.3L , Total Bilirubin 15.8H, Direct Bilirubin 13.1H, Aspartate Amino Transf (AST/ SGOT) 154H, Alanine Aminotransferase (ALT/SGPT) 231H, Alkaline Phosphatase 1086H , Total Protein 5.3L, Albumin 1.7L, Globulin 3.6, Albumin/Globulin Ratio 0.5L, F -Actin IgG Antibody [Pending] Height (Feet): 5 Height (Inches): 1.00 Weight (Pounds): 164 General Appearance: no apparent distress, other - Jaundiced Cardiovascular: normal rate Respiratory/Chest: decreased breath sounds Abdomen: distended Objective no other change Bryan Scanlon MD Oct 07, 2017 11:14
[2017-10-07 12:00] VITALS: BP 138/73
[2017-10-07] MEDS ORDERED: DULoxetine 30mg cap ORAL SCH (12:46)
--- NOTE | 2017-10-07 13:16 | General Progress Note ---
Assessment/Plan Assessment/Plan Assessment - abnormal LFT - severe - ? drug induced (? doxycycline, ? cymbalta) - ? autoimmune - DM - CHF - Jaundice Recommendations - d/c Cymbalta, Januvia, ultram, and hydralazine given hepatitis - follow LFT - f/u AMA results - await final path report - if autoimmune then would benefit from steroids - d/c non-vital medications - begin lactulose - follow NH3 Subjective Allergies: Coded Allergies: UNABLE TO ASSESS (Unverified , 10/03/17) Subjective feels OK no new complaints labs noted pathology report pending Objective Last 24 Hour Vital Signs Date Time Temp Pulse Resp B/P (MAP) Pulse Ox O2 Delivery O2 Flow Rate FiO2 10/07/17 12:00 97.3 84 20 138/73 (94) 93 97.3 10/07/17 10:47 97.7 10/07/17 09:48 77 130/74 10/07/17 09:48 97.7 10/07/17 09:47 130/74 10/07/17 08:20 Room Air 10/07/17 08:00 97.7 77 18 130/74 (92) 94 97.7 10/07/17 07:51 73 10/07/17 04:00 82 10/07/17 04:00 82 10/07/17 00:00 81 10/07/17 00:00 80 10/06/17 21:33 79 141/79 10/06/17 21:33 141/79 10/06/17 21:33 97.4 10/06/17 21:00 Room Air 10/06/17 20:00 97.4 85 23 141/79 (99) 98 97.4 10/06/17 20:00 79 10/06/17 16:01 80 10/06/17 16:00 97.8 69 18 129/66 (87) 96 97.8 Intake and Output 10/06/17 10/07/17 19:00 07:00 Intake Total 360 ml Balance 360 ml Intake Oral 360 ml # Voids 3 3 # Bowel Movements 2 Laboratory Tests 10/07/17 06:18: White Blood Count 7.2, Red Blood Count 4.71, Hemoglobin 14.6, Hematocrit 45.1, Mean Corpuscular Volume 96, Mean Corpuscular Hemoglobin 31.0, Mean Corpuscular Hemoglobin Concent 32.4, Red Cell Distribution Width 14.9H, Platelet Count 198, Mean Platelet Volume 9.0, Neutrophils (%) (Auto) 58.1, Lymphocytes (%) (Auto) 29.0, Monocytes (%) (Auto) 10.6H, Eosinophils (%) (Auto) 1.1, Basophils (%) ( Auto) 1.2, Sodium Level 132L, Potassium Level 3.5, Chloride Level 97L, Carbon Dioxide Level 28, Anion Gap 7, Blood Urea Nitrogen 22H, Creatinine 0.6#, Estimat Glomerular Filtration Rate > 60, Glucose Level 191H, Calcium Level 8.3L , Total Bilirubin 15.8H, Direct Bilirubin 13.1H, Aspartate Amino Transf (AST/ SGOT) 154H, Alanine Aminotransferase (ALT/SGPT) 231H, Alkaline Phosphatase 1086H , Total Protein 5.3L, Albumin 1.7L, Globulin 3.6, Albumin/Globulin Ratio 0.5L, F -Actin IgG Antibody [Pending] Height (Feet): 5 Height (Inches): 1.00 Weight (Pounds): 164 Objective WDWN janundiced NCAT supple CTA RR soft ND NT no edema Ronda Luis MD Oct 07, 2017 13:16
--- NOTE | 2017-10-07 13:49 | Pulmonology Progress Note ---
Assessment/Plan Problems: (1) New onset type 2 diabetes mellitus (2) Acute exacerbation of CHF (congestive heart failure) (3) UTI (urinary tract infection) (4) Proteinuria (5) Jaundice (6) LFT elevation Assessment/Plan ASSESSMENT: B pleural effusion in the setting of decompensated HF, cirrhosis, hypoalbuminemia, likely all 2/2 [facility] CHF with ADHF Anasarca and generalized edema Abnormal LFT's Hypoalbuminemia Proteinuria UTI H/O EtOH abuse PLAN: Optimize pulmonary hygiene/mobilize as tolerated Monitor effusion with diuresis --> repeat CXR ordered Monitor volumes, keep as negative as able F/U GI recs, f/u final path, possible steroids if autoimmune, hepatotoxic meds DC'd, monitor liver function F/U cards and renal recs Continue CTx for UTI Aspiration precautions DVT Px: Hep SQ FC Subjective Allergies: Coded Allergies: UNABLE TO ASSESS (Unverified , 10/03/17) Subjective AFVSS, stable on RA, LFT's continue to rise, final path pending Seen by GI, hepatotoxic meds D/C'd Denies SOB, no cough, no CP, no F/C Edema better Objective Last 24 Hour Vital Signs Date Time Temp Pulse Resp B/P (MAP) Pulse Ox O2 Delivery O2 Flow Rate FiO2 10/07/17 12:00 97.3 84 20 138/73 (94) 93 97.3 10/07/17 11:41 84 10/07/17 10:47 97.7 10/07/17 09:48 77 130/74 10/07/17 09:48 97.7 10/07/17 09:47 130/74 10/07/17 08:20 Room Air 10/07/17 08:00 97.7 77 18 130/74 (92) 94 97.7 10/07/17 07:51 73 10/07/17 04:00 82 10/07/17 04:00 82 10/07/17 00:00 81 10/07/17 00:00 80 10/06/17 21:33 79 141/79 10/06/17 21:33 141/79 10/06/17 21:33 97.4 10/06/17 21:00 Room Air 10/06/17 20:00 97.4 85 23 141/79 (99) 98 97.4 10/06/17 20:00 79 10/06/17 16:01 80 10/06/17 16:00 97.8 69 18 129/66 (87) 96 97.8 Intake and Output 10/06/17 10/07/17 19:00 07:00 Intake Total 360 ml Balance 360 ml Intake Oral 360 ml # Voids 3 3 # Bowel Movements 2 General Appearance: WD/WN, no acute distress HEENT: normocephalic, atraumatic, mucous membranes moist, other - scleral icterus Respiratory/Chest: chest wall non-tender, lungs clear, normal breath sounds, no respiratory distress, no accessory muscle use Cardiovascular: normal peripheral pulses, normal rate, regular rhythm Abdomen: normal bowel sounds, soft, non tender, no organomegaly, non distended , no mass Extremities: no cyanosis, no clubbing, no edema Laboratory Tests 10/07/17 06:18: White Blood Count 7.2, Red Blood Count 4.71, Hemoglobin 14.6, Hematocrit 45.1, Mean Corpuscular Volume 96, Mean Corpuscular Hemoglobin 31.0, Mean Corpuscular Hemoglobin Concent 32.4, Red Cell Distribution Width 14.9H, Platelet Count 198, Mean Platelet Volume 9.0, Neutrophils (%) (Auto) 58.1, Lymphocytes (%) (Auto) 29.0, Monocytes (%) (Auto) 10.6H, Eosinophils (%) (Auto) 1.1, Basophils (%) ( Auto) 1.2, Sodium Level 132L, Potassium Level 3.5, Chloride Level 97L, Carbon Dioxide Level 28, Anion Gap 7, Blood Urea Nitrogen 22H, Creatinine 0.6#, Estimat Glomerular Filtration Rate > 60, Glucose Level 191H, Calcium Level 8.3L , Total Bilirubin 15.8H, Direct Bilirubin 13.1H, Aspartate Amino Transf (AST/ SGOT) 154H, Alanine Aminotransferase (ALT/SGPT) 231H, Alkaline Phosphatase 1086H , Total Protein 5.3L, Albumin 1.7L, Globulin 3.6, Albumin/Globulin Ratio 0.5L, F -Actin IgG Antibody [Pending] Current Medications Medications (Trade) Dose Ordered Sig/Dutch Route PRN Reason Start Time Stop Time Status Last Admin Dose Admin Carvedilol (Coreg) 12.5 mg EVERY 12 HOURS ORAL 10/05/17 21:00 11/03/17 08:59 10/07/17 09:48 Ceftriaxone Sodium 1 gm/ Dextrose 55 ml @ 110 mls/hr Q24H IVPB 10/05/17 14:30 10/12/17 14:29 10/06/17 15:03 Clotrimazole (Lotrimin) 1 applic THREE TIMES A DAY TOPIC 10/05/17 18:00 11/04/17 17:59 10/07/17 13:18 Dextrose (Dextrose 50%) 25 ml STAT PRN IV Hypoglycemia 10/04/17 06:30 11/03/17 06:29 Dextrose (Dextrose 50%) 50 ml STAT PRN IV Hypoglycemia 10/04/17 06:30 11/03/17 06:29 Diphenhydramine HCl (Benadryl) 25 mg Q4H PRN ORAL Itching 10/06/17 14:30 11/05/17 14:29 10/06/17 15:03 Diphenhydramine HCl (Benadryl) 50 mg HSPRN PRN ORAL Insomnia 10/05/17 21:30 11/04/17 21:29 10/06/17 21:33 Enalapril Maleate (Vasotec) 5 mg EVERY 12 HOURS ORAL 10/04/17 21:00 11/03/17 08:59 10/07/17 09:47 Famotidine (Pepcid) 20 mg BID ORAL 10/04/17 18:00 11/03/17 17:59 10/07/17 09:47 Furosemide (Lasix) 20 mg DAILY IV 10/04/17 09:00 11/03/17 08:59 10/07/17 09:49 Gadobutrol (Gadavist) 7.5 mmol NOW PRN IV Radiology Procedure 10/05/17 14:45 10/09/17 14:40 Insulin Aspart (NovoLOG) BEFORE MEALS AND HS SUBQ 10/04/17 06:30 11/03/17 06:29 10/07/17 11:57 Insulin Detemir (Levemir) 12 units DAILY SUBQ 10/04/17 09:00 11/03/17 08:59 10/07/17 09:57 Iopamidol (Isovue-300 100ml) 100 ml NOW PRN INJ Radiology Procedure 10/03/17 23:45 Metformin HCl (Glucophage) 500 mg BID ORAL 10/07/17 09:00 11/06/17 08:59 10/07/17 09:47 Spironolactone (Aldactone) 25 mg DAILY ORAL 10/05/17 09:00 11/04/17 08:59 10/07/17 09:47 Abhinav Bullock MD Oct 07, 2017 13:49
[2017-10-07] MEDS: Lactulose 10gm/15ml UDC ORAL SCH ×2 (14:36→17:43)
--- NOTE | 2017-10-07 15:06 | Infectious Diseases Prog Note ---
Assessment/Plan Problems: (1) UTI (urinary tract infection) Assessment & Plan: due to enterobacter aerogenes, E coli, and enterococcus faecalis suspect fecal incontinence related start vancomycin and levaquin stop ceftriaxon (2) New onset type 2 diabetes mellitus Assessment & Plan: recommend tight glycemic control keep blood glucose between 100-140 (3) Jaundice Assessment & Plan: with cholestasis . stop ceftriaxon GI work up may need liver biopsy if etiology is not clear (4) LFT elevation Assessment & Plan: hepatitis panel is negative will order mono test and CMV PCR viral load Subjective Constitutional: Reports: no symptoms HEENT: Reports: no symptoms Respiratory: Reports: no symptoms Breasts: Reports: no symptoms Cardiovascular: Reports: no symptoms Gastrointestinal/Abdominal: Reports: no symptoms Genitourinary: Reports: no symptoms Neurologic: Reports: numbness, weakness Psychiatric: Reports: no symptoms Skin: Reports: no symptoms Endocrine: Reports: no symptoms Hematologic: Reports: no symptoms Musculoskeletal: Reports: pain, stiffness Allergies: Coded Allergies: UNABLE TO ASSESS (Unverified , 10/03/17) Objective Vital Signs Last 24 Hour Vital Signs Date Time Temp Pulse Resp B/P (MAP) Pulse Ox O2 Delivery O2 Flow Rate FiO2 10/07/17 12:00 97.3 84 20 138/73 (94) 93 97.3 10/07/17 11:41 84 10/07/17 10:47 97.7 10/07/17 09:48 77 130/74 10/07/17 09:48 97.7 10/07/17 09:47 130/74 10/07/17 08:20 Room Air 10/07/17 08:00 97.7 77 18 130/74 (92) 94 97.7 10/07/17 07:51 73 10/07/17 04:00 82 10/07/17 04:00 82 10/07/17 00:00 81 10/07/17 00:00 80 10/06/17 21:33 79 141/79 10/06/17 21:33 141/79 10/06/17 21:33 97.4 10/06/17 21:00 Room Air 10/06/17 20:00 97.4 85 23 141/79 (99) 98 97.4 10/06/17 20:00 79 10/06/17 16:01 80 10/06/17 16:00 97.8 69 18 129/66 (87) 96 97.8 Height (Feet): 5 Height (Inches): 1.00 Weight (Pounds): 164 General Appearance: WD/WN, no acute distress HEENT: normocephalic, atraumatic, anicteric, mucous membranes moist, PERRL, EOMI, pharynx normal, supple, no JVD Respiratory/Chest: chest wall non-tender, lungs clear, normal breath sounds, no respiratory distress, no accessory muscle use Cardiovascular: normal peripheral pulses, normal rate, regular rhythm, no gallop/murmur, no JVD Abdomen: normal bowel sounds, soft, non tender, no organomegaly, non distended , no mass, no scars Extremities: no cyanosis, no clubbing Skin: no rash, no lesions Neurologic/Psychiatric: alert, oriented x 3, responsive Lymphatic: no neck adenopathy, no groin adenopathy Musculoskeletal: no effusion, atrophy Laboratory Tests Test 10/07/17 06:18 White Blood Count 7.2 K/UL (4.8-10.8) Red Blood Count 4.71 M/UL (4.20-5.40) Hemoglobin 14.6 G/DL (12.0-16.0) Hematocrit 45.1 % (37.0-47.0) Mean Corpuscular Volume 96 FL (80-99) Mean Corpuscular Hemoglobin 31.0 PG (27.0-31.0) Mean Corpuscular Hemoglobin Concent 32.4 G/DL (32.0-36.0) Red Cell Distribution Width 14.9 % (11.6-14.8) H Platelet Count 198 K/UL (150-450) Mean Platelet Volume 9.0 FL (6.5-10.1) Neutrophils (%) (Auto) 58.1 % (45.0-75.0) Lymphocytes (%) (Auto) 29.0 % (20.0-45.0) Monocytes (%) (Auto) 10.6 % (1.0-10.0) H Eosinophils (%) (Auto) 1.1 % (0.0-3.0) Basophils (%) (Auto) 1.2 % (0.0-2.0) Sodium Level 132 MMOL/L (136-145) L Potassium Level 3.5 MMOL/L (3.5-5.1) Chloride Level 97 MMOL/L (98-107) L Carbon Dioxide Level 28 MMOL/L (21-32) Anion Gap 7 mmol/L (5-15) Blood Urea Nitrogen 22 mg/dL (7-18) H Creatinine 0.6 MG/DL (0.55-1.30) # Estimat Glomerular Filtration Rate > 60 mL/min (>60) Glucose Level 191 MG/DL (74-106) H Calcium Level 8.3 MG/DL (8.5-10.1) L Total Bilirubin 15.8 MG/DL (0.2-1.0) H Direct Bilirubin 13.1 MG/DL (0.0-0.3) H Aspartate Amino Transf (AST/SGOT) 154 U/L (15-37) H Alanine Aminotransferase (ALT/SGPT) 231 U/L (12-78) H Alkaline Phosphatase 1086 U/L (46-116) H Total Protein 5.3 G/DL (6.4-8.2) L Albumin 1.7 G/DL (3.4-5.0) L Globulin 3.6 g/dL Albumin/Globulin Ratio 0.5 (1.0-2.7) L F-Actin IgG Antibody Pending Current Medications Medications (Trade) Dose Ordered Sig/Dutch Route PRN Reason Start Time Stop Time Status Last Admin Dose Admin Carvedilol (Coreg) 12.5 mg EVERY 12 HOURS ORAL 10/05/17 21:00 11/03/17 08:59 10/07/17 09:48 Clotrimazole (Lotrimin) 1 applic THREE TIMES A DAY TOPIC 10/05/17 18:00 11/04/17 17:59 10/07/17 13:18 Dextrose (Dextrose 50%) 25 ml STAT PRN IV Hypoglycemia 10/04/17 06:30 11/03/17 06:29 Dextrose (Dextrose 50%) 50 ml STAT PRN IV Hypoglycemia 10/04/17 06:30 11/03/17 06:29 Diphenhydramine HCl (Benadryl) 25 mg Q4H PRN ORAL Itching 10/06/17 14:30 11/05/17 14:29 10/06/17 15:03 Diphenhydramine HCl (Benadryl) 50 mg HSPRN PRN ORAL Insomnia 10/05/17 21:30 11/04/17 21:29 10/06/17 21:33 Enalapril Maleate (Vasotec) 5 mg EVERY 12 HOURS ORAL 10/04/17 21:00 11/03/17 08:59 10/07/17 09:47 Famotidine (Pepcid) 20 mg BID ORAL 10/04/17 18:00 11/03/17 17:59 10/07/17 09:47 Furosemide (Lasix) 20 mg DAILY IV 10/04/17 09:00 11/03/17 08:59 10/07/17 09:49 Gadobutrol (Gadavist) 7.5 mmol NOW PRN IV Radiology Procedure 10/05/17 14:45 10/09/17 14:40 Insulin Aspart (NovoLOG) BEFORE MEALS AND HS SUBQ 10/04/17 06:30 11/03/17 06:29 10/07/17 11:57 Insulin Detemir (Levemir) 12 units DAILY SUBQ 10/04/17 09:00 11/03/17 08:59 10/07/17 09:57 Iopamidol (Isovue-300 100ml) 100 ml NOW PRN INJ Radiology Procedure 10/03/17 23:45 Lactulose (Cephulac) 10 gm BID ORAL 10/07/17 14:30 11/06/17 14:29 10/07/17 14:36 Levofloxacin 50 ml @ 50 mls/hr Q24H IVPB 10/07/17 14:00 10/14/17 13:59 10/07/17 14:18 Metformin HCl (Glucophage) 500 mg BID ORAL 10/07/17 09:00 11/06/17 08:59 10/07/17 09:47 Spironolactone (Aldactone) 25 mg DAILY ORAL 10/05/17 09:00 11/04/17 08:59 10/07/17 09:47 Vancomycin HCl (Vanco rx to dose) 1 ea DAILY PRN MISC Per rx protocol 10/07/17 14:00 11/06/17 13:59 Vancomycin HCl 1 gm/Dextrose 275 ml @ 183.708 mls/hr Q12H IVPB 10/07/17 15:00 10/12/17 14:59 Mary Delgado M.D. Oct 07, 2017 15:06
[2017-10-07 16:00] VITALS: BP 151/83
[2017-10-07] MEDS: Vancomycin 1gm/D5W 275ml IVPB SCH ×2 (16:06)
--- NOTE | 2017-10-07 16:49 | Diagnostic Imaging Report ---
EXAM: XR Chest, 1 View CLINICAL HISTORY: Pleural effusion TECHNIQUE: Frontal view of the chest. COMPARISON: Chest x-ray dated 10/03/17 FINDINGS: Lungs: Mild pulmonary vascular congestion, improved compared to the prior exam. No new focal consolidation. Pleural space: Possible tiny pleural effusions, improved compared to the prior exam. No pneumothorax. Heart: Cardiomegaly. Mediastinum: Unremarkable. Bones/joints: Unremarkable. Tubes, lines and devices: EKG leads overlie the thorax. IMPRESSION: 1. Mild pulmonary vascular congestion, improved compared to the prior exam. 2. Possibility of tiny pleural effusions, improved compared to the prior exam. 3. Cardiomegaly.
[2017-10-07 20:00] VITALS: BP 127/79
--- NOTE | 2017-10-07 23:23 | Cardiology Progress Note ---
Assessment/Plan Assessment/Plan 1. Dyspnea due to acute heart failure with preserved ejection fraction, given the findings of chest x-ray with cardiomegaly and pulmonary edema as well as severely elevated beta-natriuretic peptide. Continue the diuretics. 2. Hypertensive heart disease. Subjective Subjective Sinus rhythm at 81. Objective Last 24 Hour Vital Signs Date Time Temp Pulse Resp B/P (MAP) Pulse Ox O2 Delivery O2 Flow Rate FiO2 10/07/17 21:04 78 127/79 10/07/17 21:04 127/79 10/07/17 21:00 Room Air 10/07/17 20:00 97.3 78 17 127/79 (95) 96 97.3 10/07/17 20:00 81 10/07/17 16:00 97.5 70 18 151/83 (105) 98 97.5 10/07/17 15:24 65 10/07/17 12:00 97.3 84 20 138/73 (94) 93 97.3 10/07/17 11:41 84 10/07/17 10:47 97.7 10/07/17 09:48 77 130/74 10/07/17 09:48 97.7 10/07/17 09:47 130/74 10/07/17 08:20 Room Air 10/07/17 08:00 97.7 77 18 130/74 (92) 94 97.7 10/07/17 07:51 73 10/07/17 04:00 82 10/07/17 04:00 82 10/07/17 00:00 81 10/07/17 00:00 80 Intake and Output 10/06/17 10/07/17 19:00 07:00 Intake Total 360 ml Balance 360 ml Intake Oral 360 ml # Voids 3 3 # Bowel Movements 2 2D Echo: EF 45%, global LV HK, Mod LVH, RVSP 29 mmHg, Mild MR/AR Laboratory Tests Test 10/07/17 06:18 White Blood Count 7.2 K/UL (4.8-10.8) Red Blood Count 4.71 M/UL (4.20-5.40) Hemoglobin 14.6 G/DL (12.0-16.0) Hematocrit 45.1 % (37.0-47.0) Mean Corpuscular Volume 96 FL (80-99) Mean Corpuscular Hemoglobin 31.0 PG (27.0-31.0) Mean Corpuscular Hemoglobin Concent 32.4 G/DL (32.0-36.0) Red Cell Distribution Width 14.9 % (11.6-14.8) H Platelet Count 198 K/UL (150-450) Mean Platelet Volume 9.0 FL (6.5-10.1) Neutrophils (%) (Auto) 58.1 % (45.0-75.0) Lymphocytes (%) (Auto) 29.0 % (20.0-45.0) Monocytes (%) (Auto) 10.6 % (1.0-10.0) H Eosinophils (%) (Auto) 1.1 % (0.0-3.0) Basophils (%) (Auto) 1.2 % (0.0-2.0) Sodium Level 132 MMOL/L (136-145) L Potassium Level 3.5 MMOL/L (3.5-5.1) Chloride Level 97 MMOL/L (98-107) L Carbon Dioxide Level 28 MMOL/L (21-32) Anion Gap 7 mmol/L (5-15) Blood Urea Nitrogen 22 mg/dL (7-18) H Creatinine 0.6 MG/DL (0.55-1.30) # Estimat Glomerular Filtration Rate > 60 mL/min (>60) Glucose Level 191 MG/DL (74-106) H Calcium Level 8.3 MG/DL (8.5-10.1) L Total Bilirubin 15.8 MG/DL (0.2-1.0) H Direct Bilirubin 13.1 MG/DL (0.0-0.3) H Aspartate Amino Transf (AST/SGOT) 154 U/L (15-37) H Alanine Aminotransferase (ALT/SGPT) 231 U/L (12-78) H Alkaline Phosphatase 1086 U/L (46-116) H Total Protein 5.3 G/DL (6.4-8.2) L Albumin 1.7 G/DL (3.4-5.0) L Globulin 3.6 g/dL Albumin/Globulin Ratio 0.5 (1.0-2.7) L F-Actin IgG Antibody Pending Cytomegalovirus DNA PCR copies/ml Pending Cytomegalovirus DNA PCR log10 Pending Monoscreen Pending Objective HEENT: Atraumatic and normocephalic. Pupils are equal, round, and reactive to light and accommodation. There is presence of the icteric sclera. NECK: JVP is elevated above 15 cm. No carotid bruits. Carotid upstrokes 2+ bilaterally. CARDIOVASCULAR: Normal S1, S2. Positive S3 and S4. A 2/6 midsystolic murmur at the left sternal border. PMI is at fourth intercostal space in the midclavicular line. LUNGS: Clear to auscultation bilaterally, although has poor inspiratory. ABDOMEN: Soft, nontender, and nondistended. No hepatosplenomegaly. Positive bowel sounds. EXTREMITIES: There is 2+ bilateral lower extremity edema. Malik Perez MD Oct 07, 2017 23:23
[2017-10-08] VITALS: BP 139/80
[2017-10-08] MEDS: Vancomycin 1gm/D5W 275ml IVPB SCH ×2 (03:17)
[2017-10-08] MEDS: NovoLOG Insulin Flexpen SUBQ SCH ×4 (06:24→21:17)
--- NOTE | 2017-10-08 07:21 | General Progress Note ---
Assessment/Plan Problem List: (1) Jaundice ICD Codes: R17 - Unspecified jaundice SNOMED: 63309093 (2) New onset type 2 diabetes mellitus ICD Codes: E11.9 - Type 2 diabetes mellitus without complications SNOMED: 02514527 (3) Acute exacerbation of CHF (congestive heart failure) ICD Codes: I50.9 - Heart failure, unspecified SNOMED: 54975204 Qualifiers: Qualified Codes: I50.9 - Heart failure, unspecified (4) UTI (urinary tract infection) ICD Codes: N39.0 - Urinary tract infection, site not specified SNOMED: 78339261 Qualifiers: Qualified Codes: N30.00 - Acute cystitis without hematuria (5) Proteinuria ICD Codes: R80.9 - Proteinuria, unspecified SNOMED: 54626011 Qualifiers: Qualified Codes: R80.9 - Proteinuria, unspecified Assessment/Plan increase Levemir to 14units daily continue Metformin 500 mg bid continue NISS Subjective Allergies: Coded Allergies: No Known Allergies (Unverified , 10/07/17) All Systems: reviewed and negative except above Subjective events noted refused Anthony and was LIS'ed Objective Last 24 Hour Vital Signs Date Time Temp Pulse Resp B/P (MAP) Pulse Ox O2 Delivery O2 Flow Rate FiO2 10/08/17 04:00 78 10/08/17 04:00 82 10/08/17 00:00 80 10/08/17 00:00 97.9 82 19 139/80 (99) 97 97.9 10/07/17 21:04 78 127/79 10/07/17 21:04 127/79 10/07/17 21:00 Room Air 10/07/17 20:00 97.3 78 17 127/79 (95) 96 97.3 10/07/17 20:00 81 10/07/17 16:00 97.5 70 18 151/83 (105) 98 97.5 10/07/17 15:24 65 10/07/17 12:00 97.3 84 20 138/73 (94) 93 97.3 10/07/17 11:41 84 10/07/17 10:47 97.7 10/07/17 09:48 77 130/74 10/07/17 09:48 97.7 10/07/17 09:47 130/74 10/07/17 08:20 Room Air 10/07/17 08:00 97.7 77 18 130/74 (92) 94 97.7 10/07/17 07:51 73 Intake and Output 10/07/17 10/08/17 19:00 07:00 Intake Total 480 ml 100 ml Balance 480 ml 100 ml Intake Oral 480 ml 100 ml # Voids 2 1 # Bowel Movements 1 Height (Feet): 5 Height (Inches): 1.00 Weight (Pounds): 164 Neck: normal alignment Cardiovascular: normal rate Respiratory/Chest: lungs clear Abdomen: normal bowel sounds Edema: no edema noted Arm (L), no edema noted Arm (R), no edema noted Leg (L), no edema noted Leg (R), no edema noted Pedal (L), no edema noted Pedal (R), no edema noted Generalized Objective Current Medications Medications (Trade) Dose Ordered Sig/Dutch Route PRN Reason Start Time Stop Time Status Last Admin Dose Admin Carvedilol (Coreg) 12.5 mg EVERY 12 HOURS ORAL 10/05/17 21:00 11/03/17 08:59 10/07/17 21:04 Clotrimazole (Lotrimin) 1 applic THREE TIMES A DAY TOPIC 10/05/17 18:00 11/04/17 17:59 10/07/17 17:43 Dextrose (Dextrose 50%) 25 ml STAT PRN IV Hypoglycemia 10/04/17 06:30 11/03/17 06:29 Dextrose (Dextrose 50%) 50 ml STAT PRN IV Hypoglycemia 10/04/17 06:30 11/03/17 06:29 Diphenhydramine HCl (Benadryl) 25 mg Q4H PRN ORAL Itching 10/06/17 14:30 11/05/17 14:29 10/06/17 15:03 Diphenhydramine HCl (Benadryl) 50 mg HSPRN PRN ORAL Insomnia 10/05/17 21:30 11/04/17 21:29 10/07/17 21:04 Enalapril Maleate (Vasotec) 5 mg EVERY 12 HOURS ORAL 10/04/17 21:00 11/03/17 08:59 10/07/17 21:04 Famotidine (Pepcid) 20 mg BID ORAL 10/04/17 18:00 11/03/17 17:59 10/07/17 17:43 Furosemide (Lasix) 20 mg DAILY IV 10/04/17 09:00 11/03/17 08:59 10/07/17 09:49 Gadobutrol (Gadavist) 7.5 mmol NOW PRN IV Radiology Procedure 10/05/17 14:45 10/09/17 14:40 Insulin Aspart (NovoLOG) BEFORE MEALS AND HS SUBQ 10/04/17 06:30 11/03/17 06:29 10/08/17 06:24 Insulin Detemir (Levemir) 12 units DAILY SUBQ 10/04/17 09:00 11/03/17 08:59 10/07/17 09:57 Iopamidol (Isovue-300 100ml) 100 ml NOW PRN INJ Radiology Procedure 10/03/17 23:45 Lactulose (Cephulac) 10 gm BID ORAL 10/07/17 14:30 11/06/17 14:29 10/07/17 17:43 Levofloxacin 50 ml @ 50 mls/hr Q24H IVPB 10/07/17 14:00 10/14/17 13:59 10/07/17 14:18 Metformin HCl (Glucophage) 500 mg BID ORAL 10/07/17 09:00 11/06/17 08:59 10/07/17 17:43 Spironolactone (Aldactone) 25 mg DAILY ORAL 10/05/17 09:00 11/04/17 08:59 10/07/17 09:47 Vancomycin HCl (Vanco rx to dose) 1 ea DAILY PRN MISC Per rx protocol 10/07/17 14:00 11/06/17 13:59 Vancomycin HCl 1 gm/Dextrose 275 ml @ 183.708 mls/hr Q12H IVPB 10/07/17 15:00 10/12/17 14:59 10/08/17 03:17 Item Value Date Time Bedside Blood Glucose 226 mg/dl H 10/08/17 0630 Bedside Blood Glucose 107 mg/dl 10/07/17 2100 Bedside Blood Glucose 280 mg/dl H 10/07/17 1705 Bedside Blood Glucose 218 mg/dl H 10/07/17 1157 Bedside Blood Glucose 199 mg/dl H 10/07/17 0957 Bedside Blood Glucose 199 mg/dl H 10/07/17 0630 Rad Mccarthy MD Oct 08, 2017 07:21
[2017-10-08 07:28] LABS: BASOPHILS % (AUTO) 1.4 % (0.0-2.0); HEMATOCRIT 45.5 % (37.0-47.0); HEMOGLOBIN 14.6 G/DL (12.0-16.0); MEAN CORPUSCULAR VOLUME 97 FL (80-99); MONOCYTES % (AUTO) 9.7 % (1.0-10.0); NEUTROPHILS % (AUTO) 59.9 % (45.0-75.0); PLATELET COUNT 197 K/UL (150-450); RED BLOOD COUNT 4.69 M/UL (4.20-5.40); RED CELL DISTRIBUTION WIDTH 14.9 % (11.6-14.8); WHITE BLOOD COUNT 7.5 K/UL (4.8-10.8)
[2017-10-08 07:59] VITALS: BP 138/84
[2017-10-08 08:08] LABS: ANION GAP 5 mmol/L (5-15); BLOOD UREA NITROGEN 16 mg/dL (7-18); CALCIUM 8.7 MG/DL (8.5-10.1); CARBON DIOXIDE 30 MMOL/L (21-32); CHLORIDE 94 MMOL/L (98-107); CREATININE 0.5 MG/DL (0.55-1.30); POTASSIUM 3.7 MMOL/L (3.5-5.1); SODIUM 129 MMOL/L (136-145)
[2017-10-08] MEDS: Enalapril 5mg tab ORAL SCH ×2 (08:09→21:13)
[2017-10-08] MEDS: Spironolactone 25mg tab ORAL SCH (08:09)
[2017-10-08] MEDS: Lactulose 10gm/15ml UDC ORAL SCH ×2 (08:10→18:08)
[2017-10-08] MEDS: metFORMIN 500mg tab ORAL SCH ×2 (08:10→18:09)
[2017-10-08] MEDS: Carvedilol 12.5mg tab ORAL SCH ×2 (08:10→21:13)
[2017-10-08] MEDS ORDERED: Levemir Flexpen SUBQ SCH (09:00)
--- NOTE | 2017-10-08 10:01 | General Progress Note ---
Assessment/Plan Problem List: (1) Acute exacerbation of CHF (congestive heart failure) ICD Codes: I50.9 - Heart failure, unspecified SNOMED: 78652384 Qualifiers: Qualified Codes: I50.9 - Heart failure, unspecified (2) LFT elevation ICD Codes: R94.5 - Abnormal results of liver function studies SNOMED: 988547640, 572556381 (3) New onset type 2 diabetes mellitus ICD Codes: E11.9 - Type 2 diabetes mellitus without complications SNOMED: 18087222 Status: stable, progressing Assessment/Plan ot pt diet bp bs control cbc bmp am dc plan w hh if all clear Subjective Constitutional: Reports: weakness Allergies: Coded Allergies: No Known Allergies (Unverified , 10/07/17) All Systems: reviewed and negative except above Subjective calm in room Objective Last 24 Hour Vital Signs Date Time Temp Pulse Resp B/P (MAP) Pulse Ox O2 Delivery O2 Flow Rate FiO2 10/08/17 09:00 Room Air 10/08/17 08:10 72 138/84 10/08/17 08:09 138/84 10/08/17 08:00 71 10/08/17 07:59 97.9 72 18 138/84 (102) 97 97.9 10/08/17 04:00 78 10/08/17 04:00 82 10/08/17 00:00 80 10/08/17 00:00 97.9 82 19 139/80 (99) 97 97.9 10/07/17 21:04 78 127/79 10/07/17 21:04 127/79 10/07/17 21:00 Room Air 10/07/17 20:00 97.3 78 17 127/79 (95) 96 97.3 10/07/17 20:00 81 10/07/17 16:00 97.5 70 18 151/83 (105) 98 97.5 10/07/17 15:24 65 10/07/17 12:00 97.3 84 20 138/73 (94) 93 97.3 10/07/17 11:41 84 10/07/17 10:47 97.7 Intake and Output 10/07/17 10/08/17 19:00 07:00 Intake Total 480 ml 100 ml Balance 480 ml 100 ml Intake Oral 480 ml 100 ml # Voids 2 1 # Bowel Movements 1 Laboratory Tests 10/08/17 06:40: White Blood Count 7.5, Red Blood Count 4.69, Hemoglobin 14.6, Hematocrit 45.5, Mean Corpuscular Volume 97, Mean Corpuscular Hemoglobin 31.1H, Mean Corpuscular Hemoglobin Concent 32.0, Red Cell Distribution Width 14.9H, Platelet Count 197, Mean Platelet Volume 9.1, Neutrophils (%) (Auto) 59.9, Lymphocytes (%) (Auto) 28.0, Monocytes (%) (Auto) 9.7, Eosinophils (%) (Auto) 1.0, Basophils (%) (Auto ) 1.4, Sodium Level 129L, Potassium Level 3.7, Chloride Level 94L, Carbon Dioxide Level 30, Anion Gap 5, Blood Urea Nitrogen 16, Creatinine 0.5L, Estimat Glomerular Filtration Rate > 60, Glucose Level 220H, Calcium Level 8.7, Ammonia 60H Height (Feet): 5 Height (Inches): 1.00 Weight (Pounds): 164 General Appearance: alert EENT: normal ENT inspection Neck: normal alignment Cardiovascular: normal peripheral pulses, normal rate, regular rhythm Respiratory/Chest: chest wall non-tender, lungs clear, normal breath sounds Abdomen: normal bowel sounds, non tender, soft Extremities: normal inspection Edema: no edema noted Arm (L), no edema noted Arm (R), no edema noted Leg (L), no edema noted Leg (R), no edema noted Pedal (L), no edema noted Pedal (R), no edema noted Generalized Neurologic: responsive, motor weakness Skin: normal pigmentation, warm/dry Collin Cordova DO Oct 08, 2017 10:01
--- NOTE | 2017-10-08 10:47 | Infectious Diseases Prog Note ---
Assessment/Plan Assessment/Plan A; E. coli UTI Groin candidal rash Jaundice, DM type 2 CHF P: Continue Levaquin, Change vancomycin to Nitrofurantoin will f/u cultures Subjective ROS Limited/Unobtainable: Yes Respiratory: Reports: no symptoms Gastrointestinal/Abdominal: Reports: no symptoms Genitourinary: Reports: no symptoms Allergies: Coded Allergies: No Known Allergies (Unverified , 10/07/17) Objective Vital Signs Last 24 Hour Vital Signs Date Time Temp Pulse Resp B/P (MAP) Pulse Ox O2 Delivery O2 Flow Rate FiO2 10/08/17 09:00 Room Air 10/08/17 08:10 72 138/84 10/08/17 08:09 138/84 10/08/17 08:00 71 10/08/17 07:59 97.9 72 18 138/84 (102) 97 97.9 10/08/17 04:00 78 10/08/17 04:00 82 10/08/17 00:00 80 10/08/17 00:00 97.9 82 19 139/80 (99) 97 97.9 10/07/17 21:04 78 127/79 10/07/17 21:04 127/79 10/07/17 21:00 Room Air 10/07/17 20:00 97.3 78 17 127/79 (95) 96 97.3 10/07/17 20:00 81 10/07/17 16:00 97.5 70 18 151/83 (105) 98 97.5 10/07/17 15:24 65 10/07/17 12:00 97.3 84 20 138/73 (94) 93 97.3 10/07/17 11:41 84 10/07/17 10:47 97.7 Height (Feet): 5 Height (Inches): 1.00 Weight (Pounds): 164 General Appearance: no acute distress HEENT: other - icterus Respiratory/Chest: lungs clear Cardiovascular: normal peripheral pulses Abdomen: soft, non tender Extremities: other - edema of legs Laboratory Tests Test 10/08/17 06:40 White Blood Count 7.5 K/UL (4.8-10.8) Red Blood Count 4.69 M/UL (4.20-5.40) Hemoglobin 14.6 G/DL (12.0-16.0) Hematocrit 45.5 % (37.0-47.0) Mean Corpuscular Volume 97 FL (80-99) Mean Corpuscular Hemoglobin 31.1 PG (27.0-31.0) H Mean Corpuscular Hemoglobin Concent 32.0 G/DL (32.0-36.0) Red Cell Distribution Width 14.9 % (11.6-14.8) H Platelet Count 197 K/UL (150-450) Mean Platelet Volume 9.1 FL (6.5-10.1) Neutrophils (%) (Auto) 59.9 % (45.0-75.0) Lymphocytes (%) (Auto) 28.0 % (20.0-45.0) Monocytes (%) (Auto) 9.7 % (1.0-10.0) Eosinophils (%) (Auto) 1.0 % (0.0-3.0) Basophils (%) (Auto) 1.4 % (0.0-2.0) Sodium Level 129 MMOL/L (136-145) L Potassium Level 3.7 MMOL/L (3.5-5.1) Chloride Level 94 MMOL/L (98-107) L Carbon Dioxide Level 30 MMOL/L (21-32) Anion Gap 5 mmol/L (5-15) Blood Urea Nitrogen 16 mg/dL (7-18) Creatinine 0.5 MG/DL (0.55-1.30) L Estimat Glomerular Filtration Rate > 60 mL/min (>60) Glucose Level 220 MG/DL (74-106) H Calcium Level 8.7 MG/DL (8.5-10.1) Ammonia 60 umol/L (11-32) H Current Medications Medications (Trade) Dose Ordered Sig/Dutch Route PRN Reason Start Time Stop Time Status Last Admin Dose Admin Carvedilol (Coreg) 12.5 mg EVERY 12 HOURS ORAL 10/05/17 21:00 11/03/17 08:59 10/08/17 08:10 Clotrimazole (Lotrimin) 1 applic THREE TIMES A DAY TOPIC 10/05/17 18:00 11/04/17 17:59 10/08/17 09:34 Dextrose (Dextrose 50%) 25 ml STAT PRN IV Hypoglycemia 10/04/17 06:30 11/03/17 06:29 Dextrose (Dextrose 50%) 50 ml STAT PRN IV Hypoglycemia 10/04/17 06:30 11/03/17 06:29 Diphenhydramine HCl (Benadryl) 25 mg Q4H PRN ORAL Itching 10/06/17 14:30 11/05/17 14:29 10/06/17 15:03 Diphenhydramine HCl (Benadryl) 50 mg HSPRN PRN ORAL Insomnia 10/05/17 21:30 11/04/17 21:29 10/07/17 21:04 Enalapril Maleate (Vasotec) 5 mg EVERY 12 HOURS ORAL 10/04/17 21:00 11/03/17 08:59 10/08/17 08:09 Famotidine (Pepcid) 20 mg BID ORAL 10/04/17 18:00 11/03/17 17:59 10/08/17 08:10 Furosemide (Lasix) 20 mg DAILY IV 10/04/17 09:00 11/03/17 08:59 10/08/17 08:10 Gadobutrol (Gadavist) 7.5 mmol NOW PRN IV Radiology Procedure 10/05/17 14:45 10/09/17 14:40 Insulin Aspart (NovoLOG) BEFORE MEALS AND HS SUBQ 10/04/17 06:30 11/03/17 06:29 10/08/17 06:24 Insulin Detemir (Levemir) 14 units DAILY SUBQ 10/08/17 09:00 11/03/17 08:59 10/08/17 09:33 Iopamidol (Isovue-300 100ml) 100 ml NOW PRN INJ Radiology Procedure 10/03/17 23:45 Lactulose (Cephulac) 10 gm BID ORAL 10/07/17 14:30 11/06/17 14:29 10/08/17 08:10 Levofloxacin 50 ml @ 50 mls/hr Q24H IVPB 10/07/17 14:00 10/14/17 13:59 10/07/17 14:18 Metformin HCl (Glucophage) 500 mg BID ORAL 10/07/17 09:00 11/06/17 08:59 10/08/17 08:10 Spironolactone (Aldactone) 25 mg DAILY ORAL 10/05/17 09:00 11/04/17 08:59 10/08/17 08:09 Vancomycin HCl (Vanco rx to dose) 1 ea DAILY PRN MISC Per rx protocol 10/07/17 14:00 11/06/17 13:59 Vancomycin HCl 1 gm/Dextrose 275 ml @ 183.708 mls/hr Q12H IVPB 10/07/17 15:00 10/12/17 14:59 10/08/17 03:17 Ranjeet Patel MD Oct 08, 2017 10:47
[2017-10-08 11:46] LABS: ALANINE AMINOTRANSFERASE 215 U/L (12-78); ALBUMIN 1.8 G/DL (3.4-5.0); ALKALINE PHOSPHATASE 1133 U/L (46-116); ASPARTATE AMINO TRANSFERASE 118 U/L (15-37); BILIRUBIN,DIRECT 14.3 MG/DL (0.0-0.3); BILIRUBIN,TOTAL 18.1 MG/DL (0.2-1.0); PHOSPHORUS 3.9 MG/DL (2.5-4.9)
[2017-10-08 12:01] VITALS: BP 143/87
--- NOTE | 2017-10-08 12:18 | Nephrology Progress Note ---
Assessment/Plan Problem List: (1) Proteinuria Assessment: Bilateral pleural effusions (2) UTI (urinary tract infection) (3) Jaundice (4) Acute exacerbation of CHF (congestive heart failure) Assessment: cardiomyopathy (5) LFT elevation Assessment Patient has Proteinuria and Hypoalbuminemia admitted with: Acute exacerbation of CHF (congestive heart failure) Has UTI (urinary tract infection) New onset type 2 diabetes mellitus Anasarca , Jaundice Likely Cirrhosis Plan Adjust BP meds- Optimize cardiac status- GI advise- had liver Bx Keep BS in check up on lasix one dose 3% Saline 2D echo- Global left ventricular hypokinesis . Left ventricular ejection fraction estimated to be 45 %. Kidney HUNG Global left ventricular hypokinesis . Left ventricular ejection fraction estimated to be 45 %. Moderate left ventricular hypertrophy by 2-D. per orders Subjective ROS Limited/Unobtainable: No Constitutional: Reports: malaise Objective Objective Last 24 Hour Vital Signs Date Time Temp Pulse Resp B/P (MAP) Pulse Ox O2 Delivery O2 Flow Rate FiO2 10/08/17 12:01 97.7 77 18 143/87 (105) 97 97.7 10/08/17 09:00 Room Air 10/08/17 08:10 72 138/84 10/08/17 08:09 138/84 10/08/17 08:00 71 10/08/17 07:59 97.9 72 18 138/84 (102) 97 97.9 10/08/17 04:00 78 10/08/17 04:00 82 10/08/17 00:00 80 10/08/17 00:00 97.9 82 19 139/80 (99) 97 97.9 10/07/17 21:04 78 127/79 10/07/17 21:04 127/79 10/07/17 21:00 Room Air 10/07/17 20:00 97.3 78 17 127/79 (95) 96 97.3 10/07/17 20:00 81 10/07/17 16:00 97.5 70 18 151/83 (105) 98 97.5 10/07/17 15:24 65 Intake and Output 10/07/17 10/08/17 19:00 07:00 Intake Total 480 ml 100 ml Balance 480 ml 100 ml Intake Oral 480 ml 100 ml # Voids 2 1 # Bowel Movements 1 Laboratory Tests 10/08/17 06:40: White Blood Count 7.5, Red Blood Count 4.69, Hemoglobin 14.6, Hematocrit 45.5, Mean Corpuscular Volume 97, Mean Corpuscular Hemoglobin 31.1H, Mean Corpuscular Hemoglobin Concent 32.0, Red Cell Distribution Width 14.9H, Platelet Count 197, Mean Platelet Volume 9.1, Neutrophils (%) (Auto) 59.9, Lymphocytes (%) (Auto) 28.0, Monocytes (%) (Auto) 9.7, Eosinophils (%) (Auto) 1.0, Basophils (%) (Auto ) 1.4, Sodium Level 129L, Potassium Level 3.7, Chloride Level 94L, Carbon Dioxide Level 30, Anion Gap 5, Blood Urea Nitrogen 16, Creatinine 0.5L, Estimat Glomerular Filtration Rate > 60, Glucose Level 220H, Osmolality 284L, Uric Acid 2.6, Calcium Level 8.7, Phosphorus Level 3.9, Magnesium Level 1.7L, Total Bilirubin 18.1H, Direct Bilirubin 14.3H, Aspartate Amino Transf (AST/SGOT) 118H , Alanine Aminotransferase (ALT/SGPT) 215H, Alkaline Phosphatase 1133H, Ammonia 60H, Total Protein 5.6L, Albumin 1.8L Height (Feet): 5 Height (Inches): 1.00 Weight (Pounds): 164 General Appearance: no apparent distress Cardiovascular: normal rate Respiratory/Chest: decreased breath sounds Abdomen: soft Extremities: other - edema Objective no other change Bryan Scanlon MD Oct 08, 2017 12:18
--- NOTE | 2017-10-08 13:06 | Pulmonology Progress Note ---
Assessment/Plan Problems: (1) New onset type 2 diabetes mellitus (2) Acute exacerbation of CHF (congestive heart failure) (3) UTI (urinary tract infection) (4) Proteinuria (5) Jaundice (6) LFT elevation Assessment/Plan ASSESSMENT: B pleural effusion in the setting of decompensated HF, cirrhosis, hypoalbuminemia, likely all 2/2 [facility] CHF with ADHF Anasarca and generalized edema Abnormal LFT's Hypoalbuminemia Proteinuria UTI H/O EtOH abuse PLAN: Optimize pulmonary hygiene/mobilize as tolerated Monitor volumes, keep as negative as able F/U GI recs, f/u final path, possible steroids if autoimmune, hepatotoxic meds DC'd, monitor liver function F/U cards and renal recs Aspiration precautions DVT Px: Hep SQ FC Subjective Allergies: Coded Allergies: No Known Allergies (Unverified , 10/07/17) Subjective AFVSS, stable on RA, LFT's continue to rise, final path pending CXR better Denies SOB, no cough, no CP, no F/C Objective Last 24 Hour Vital Signs Date Time Temp Pulse Resp B/P (MAP) Pulse Ox O2 Delivery O2 Flow Rate FiO2 10/08/17 12:01 97.7 77 18 143/87 (105) 97 97.7 10/08/17 09:00 Room Air 10/08/17 08:10 72 138/84 10/08/17 08:09 138/84 10/08/17 08:00 71 10/08/17 07:59 97.9 72 18 138/84 (102) 97 97.9 10/08/17 04:00 78 10/08/17 04:00 82 10/08/17 00:00 80 10/08/17 00:00 97.9 82 19 139/80 (99) 97 97.9 10/07/17 21:04 78 127/79 10/07/17 21:04 127/79 10/07/17 21:00 Room Air 10/07/17 20:00 97.3 78 17 127/79 (95) 96 97.3 10/07/17 20:00 81 10/07/17 16:00 97.5 70 18 151/83 (105) 98 97.5 10/07/17 15:24 65 Intake and Output 10/07/17 10/08/17 19:00 07:00 Intake Total 480 ml 100 ml Balance 480 ml 100 ml Intake Oral 480 ml 100 ml # Voids 2 1 # Bowel Movements 1 General Appearance: no acute distress, other - jaundiced HEENT: normocephalic, atraumatic, anicteric, mucous membranes moist, other - scleral icterus Respiratory/Chest: chest wall non-tender, lungs clear, normal breath sounds - but decreased @ bases Cardiovascular: normal peripheral pulses, normal rate, regular rhythm Abdomen: normal bowel sounds, soft, non tender, no organomegaly, non distended , no mass Extremities: no cyanosis, no clubbing, no edema Laboratory Tests 10/08/17 06:40: White Blood Count 7.5, Red Blood Count 4.69, Hemoglobin 14.6, Hematocrit 45.5, Mean Corpuscular Volume 97, Mean Corpuscular Hemoglobin 31.1H, Mean Corpuscular Hemoglobin Concent 32.0, Red Cell Distribution Width 14.9H, Platelet Count 197, Mean Platelet Volume 9.1, Neutrophils (%) (Auto) 59.9, Lymphocytes (%) (Auto) 28.0, Monocytes (%) (Auto) 9.7, Eosinophils (%) (Auto) 1.0, Basophils (%) (Auto ) 1.4, Sodium Level 129L, Potassium Level 3.7, Chloride Level 94L, Carbon Dioxide Level 30, Anion Gap 5, Blood Urea Nitrogen 16, Creatinine 0.5L, Estimat Glomerular Filtration Rate > 60, Glucose Level 220H, Osmolality 284L, Uric Acid 2.6, Calcium Level 8.7, Phosphorus Level 3.9, Magnesium Level 1.7L, Total Bilirubin 18.1H, Direct Bilirubin 14.3H, Aspartate Amino Transf (AST/SGOT) 118H , Alanine Aminotransferase (ALT/SGPT) 215H, Alkaline Phosphatase 1133H, Ammonia 60H, Total Protein 5.6L, Albumin 1.8L Current Medications Medications (Trade) Dose Ordered Sig/Dutch Route PRN Reason Start Time Stop Time Status Last Admin Dose Admin Carvedilol (Coreg) 12.5 mg EVERY 12 HOURS ORAL 10/05/17 21:00 11/03/17 08:59 10/08/17 08:10 Clotrimazole (Lotrimin) 1 applic THREE TIMES A DAY TOPIC 10/05/17 18:00 11/04/17 17:59 10/08/17 09:34 Dextrose (Dextrose 50%) 25 ml STAT PRN IV Hypoglycemia 10/04/17 06:30 11/03/17 06:29 Dextrose (Dextrose 50%) 50 ml STAT PRN IV Hypoglycemia 10/04/17 06:30 11/03/17 06:29 Diphenhydramine HCl (Benadryl) 25 mg Q4H PRN ORAL Itching 10/06/17 14:30 11/05/17 14:29 10/06/17 15:03 Diphenhydramine HCl (Benadryl) 50 mg HSPRN PRN ORAL Insomnia 10/05/17 21:30 11/04/17 21:29 10/07/17 21:04 Enalapril Maleate (Vasotec) 5 mg EVERY 12 HOURS ORAL 10/04/17 21:00 11/03/17 08:59 10/08/17 08:09 Famotidine (Pepcid) 20 mg BID ORAL 10/04/17 18:00 11/03/17 17:59 10/08/17 08:10 Furosemide (Lasix) 20 mg BID IV 10/08/17 18:00 11/03/17 08:59 Gadobutrol (Gadavist) 7.5 mmol NOW PRN IV Radiology Procedure 10/05/17 14:45 10/09/17 14:40 Insulin Aspart (NovoLOG) BEFORE MEALS AND HS SUBQ 10/04/17 06:30 11/03/17 06:29 10/08/17 11:38 Insulin Detemir (Levemir) 14 units DAILY SUBQ 10/08/17 09:00 11/03/17 08:59 10/08/17 09:33 Lactulose (Cephulac) 10 gm BID ORAL 10/07/17 14:30 11/06/17 14:29 10/08/17 08:10 Levofloxacin 50 ml @ 50 mls/hr Q24H IVPB 10/07/17 14:00 10/14/17 13:59 10/07/17 14:18 Metformin HCl (Glucophage) 500 mg BID ORAL 10/07/17 09:00 11/06/17 08:59 10/08/17 08:10 Nitrofurantoin (Macrobid) 100 mg EVERY 12 HOURS ORAL 10/08/17 21:00 11/07/17 20:59 Sodium Chloride 250 ml @ 30 mls/hr ONCE ONCE IV 10/08/17 15:00 10/08/17 23:19 Spironolactone (Aldactone) 25 mg DAILY ORAL 10/05/17 09:00 11/04/17 08:59 10/08/17 08:09 Abhinav Bullock MD Oct 08, 2017 13:06
[2017-10-08] MEDS ORDERED: NaCl 3% 500ml 250 ML IV ONE (15:00)
[2017-10-08] MEDS ORDERED: LORazepam 20 MG in NS 90 ML IV ONE (15:45)
[2017-10-08] MEDS ORDERED: Gadavist 7.5mMol/7.5ml vial IV PRN (15:45)
--- NOTE | 2017-10-08 15:53 | General Progress Note ---
Assessment/Plan Assessment/Plan Assessment - abnormal LFT, pattern of cholestatic disease - severe - ? drug induced (? doxycycline) - ? autoimmune/PBC/PSC - not likely, await final pathology report - ? IgG4 associated cholangitis - ? infiltrative/granulomatous disorder - not seen on path - ? 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 not suggestive of autoimmune disease acute inflammatory cells seen in portal tracts second opinion reading from [facility] planned for tomorrow patient agreed to retry MRCP Objective Last 24 Hour Vital Signs Date Time Temp Pulse Resp B/P (MAP) Pulse Ox O2 Delivery O2 Flow Rate FiO2 10/08/17 12:01 97.7 77 18 143/87 (105) 97 97.7 10/08/17 12:00 83 10/08/17 09:00 Room Air 10/08/17 08:10 72 138/84 10/08/17 08:09 138/84 10/08/17 08:00 71 10/08/17 07:59 97.9 72 18 138/84 (102) 97 97.9 10/08/17 04:00 78 10/08/17 04:00 82 10/08/17 00:00 80 10/08/17 00:00 97.9 82 19 139/80 (99) 97 97.9 10/07/17 21:04 78 127/79 10/07/17 21:04 127/79 10/07/17 21:00 Room Air 10/07/17 20:00 97.3 78 17 127/79 (95) 96 97.3 10/07/17 20:00 81 10/07/17 16:00 97.5 70 18 151/83 (105) 98 97.5 Intake and Output 10/07/17 10/08/17 19:00 07:00 Intake Total 480 ml 100 ml Balance 480 ml 100 ml Intake Oral 480 ml 100 ml # Voids 2 1 # Bowel Movements 1 Laboratory Tests 10/08/17 06:40: White Blood Count 7.5, Red Blood Count 4.69, Hemoglobin 14.6, Hematocrit 45.5, Mean Corpuscular Volume 97, Mean Corpuscular Hemoglobin 31.1H, Mean Corpuscular Hemoglobin Concent 32.0, Red Cell Distribution Width 14.9H, Platelet Count 197, Mean Platelet Volume 9.1, Neutrophils (%) (Auto) 59.9, Lymphocytes (%) (Auto) 28.0, Monocytes (%) (Auto) 9.7, Eosinophils (%) (Auto) 1.0, Basophils (%) (Auto ) 1.4, Sodium Level 129L, Potassium Level 3.7, Chloride Level 94L, Carbon Dioxide Level 30, Anion Gap 5, Blood Urea Nitrogen 16, Creatinine 0.5L, Estimat Glomerular Filtration Rate > 60, Glucose Level 220H, Osmolality 284L, Uric Acid 2.6, Calcium Level 8.7, Phosphorus Level 3.9, Magnesium Level 1.7L, Total Bilirubin 18.1H, Direct Bilirubin 14.3H, Aspartate Amino Transf (AST/SGOT) 118H , Alanine Aminotransferase (ALT/SGPT) 215H, Alkaline Phosphatase 1133H, Ammonia 60H, Total Protein 5.6L, Albumin 1.8L Height (Feet): 5 Height (Inches): 1.00 Weight (Pounds): 164 Objective WDWN janundiced NCAT supple CTA RR soft ND NT no edema Ronda Luis MD Oct 08, 2017 15:53
[2017-10-08 16:00] VITALS: BP 137/70
[2017-10-08] MEDS ORDERED: LORazepam Inj 2mg/ml 1ml IVP PRN (16:01)
[2017-10-08 20:00] VITALS: BP 159/76
--- NOTE | 2017-10-08 23:09 | Cardiology Progress Note ---
Assessment/Plan Assessment/Plan 1. Dyspnea due to acute heart failure with preserved ejection fraction, given the findings of chest x-ray with cardiomegaly and pulmonary edema as well as severely elevated beta-natriuretic peptide. Continue the diuretics and carvedilol. There is no well-defined role for use of ACEI/ARBs and aldesterone antagoists in HFpEF. 2. Hypertensive heart disease, prefer CCB and B-blockers in combination. Subjective Subjective Sinus rhythm at 86. Objective Last 24 Hour Vital Signs Date Time Temp Pulse Resp B/P (MAP) Pulse Ox O2 Delivery O2 Flow Rate FiO2 10/08/17 21:13 86 159/76 10/08/17 21:13 159/76 10/08/17 20:00 97.8 82 20 159/76 (103) 94 97.8 10/08/17 20:00 86 10/08/17 16:00 70 10/08/17 16:00 97.5 71 18 137/70 (92) 95 97.5 10/08/17 12:01 97.7 77 18 143/87 (105) 97 97.7 10/08/17 12:00 83 10/08/17 09:00 Room Air 10/08/17 08:10 72 138/84 10/08/17 08:09 138/84 10/08/17 08:00 71 10/08/17 07:59 97.9 72 18 138/84 (102) 97 97.9 10/08/17 04:00 78 10/08/17 04:00 82 10/08/17 00:00 80 10/08/17 00:00 97.9 82 19 139/80 (99) 97 97.9 Intake and Output 10/07/17 10/08/17 19:00 07:00 Intake Total 480 ml 100 ml Balance 480 ml 100 ml Intake Oral 480 ml 100 ml # Voids 2 1 # Bowel Movements 1 2D Echo: EF 45%, global LV HK, Mod LVH, RVSP 29 mmHg, Mild MR/AR Laboratory Tests Test 10/08/17 06:40 White Blood Count 7.5 K/UL (4.8-10.8) Red Blood Count 4.69 M/UL (4.20-5.40) Hemoglobin 14.6 G/DL (12.0-16.0) Hematocrit 45.5 % (37.0-47.0) Mean Corpuscular Volume 97 FL (80-99) Mean Corpuscular Hemoglobin 31.1 PG (27.0-31.0) H Mean Corpuscular Hemoglobin Concent 32.0 G/DL (32.0-36.0) Red Cell Distribution Width 14.9 % (11.6-14.8) H Platelet Count 197 K/UL (150-450) Mean Platelet Volume 9.1 FL (6.5-10.1) Neutrophils (%) (Auto) 59.9 % (45.0-75.0) Lymphocytes (%) (Auto) 28.0 % (20.0-45.0) Monocytes (%) (Auto) 9.7 % (1.0-10.0) Eosinophils (%) (Auto) 1.0 % (0.0-3.0) Basophils (%) (Auto) 1.4 % (0.0-2.0) Sodium Level 129 MMOL/L (136-145) L Potassium Level 3.7 MMOL/L (3.5-5.1) Chloride Level 94 MMOL/L (98-107) L Carbon Dioxide Level 30 MMOL/L (21-32) Anion Gap 5 mmol/L (5-15) Blood Urea Nitrogen 16 mg/dL (7-18) Creatinine 0.5 MG/DL (0.55-1.30) L Estimat Glomerular Filtration Rate > 60 mL/min (>60) Glucose Level 220 MG/DL (74-106) H Osmolality 284 mOsm/kg (297-317) L Uric Acid 2.6 MG/DL (2.6-7.2) Calcium Level 8.7 MG/DL (8.5-10.1) Phosphorus Level 3.9 MG/DL (2.5-4.9) Magnesium Level 1.7 MG/DL (1.8-2.4) L Total Bilirubin 18.1 MG/DL (0.2-1.0) H Direct Bilirubin 14.3 MG/DL (0.0-0.3) H Aspartate Amino Transf (AST/SGOT) 118 U/L (15-37) H Alanine Aminotransferase (ALT/SGPT) 215 U/L (12-78) H Alkaline Phosphatase 1133 U/L (46-116) H Ammonia 60 umol/L (11-32) H Total Protein 5.6 G/DL (6.4-8.2) L Albumin 1.8 G/DL (3.4-5.0) L Objective HEENT: Atraumatic and normocephalic. Pupils are equal, round, and reactive to light and accommodation. There is presence of the icteric sclera. NECK: JVP is elevated above 15 cm. No carotid bruits. Carotid upstrokes 2+ bilaterally. CARDIOVASCULAR: Normal S1, S2. A 2/6 midsystolic murmur at the left sternal border. PMI is at fourth intercostal space in the midclavicular line. LUNGS: Clear to auscultation bilaterally, although has poor inspiratory. ABDOMEN: Soft, nontender, and nondistended. No hepatosplenomegaly. Positive bowel sounds. EXTREMITIES: There is 2+ bilateral lower extremity edema. Malik Perez MD Oct 08, 2017 23:09
[2017-10-09] VITALS: BP 139/74
[2017-10-09 04:00] VITALS: BP 159/91
[2017-10-09] MEDS: NovoLOG Insulin Flexpen SUBQ SCH ×5 (06:10→16:50)
--- NOTE | 2017-10-09 06:32 | General Progress Note ---
Assessment/Plan Problem List: (1) Jaundice ICD Codes: R17 - Unspecified jaundice SNOMED: 75573216 (2) New onset type 2 diabetes mellitus ICD Codes: E11.9 - Type 2 diabetes mellitus without complications SNOMED: 31260412 (3) Acute exacerbation of CHF (congestive heart failure) ICD Codes: I50.9 - Heart failure, unspecified SNOMED: 85096067 Qualifiers: Qualified Codes: I50.9 - Heart failure, unspecified (4) UTI (urinary tract infection) ICD Codes: N39.0 - Urinary tract infection, site not specified SNOMED: 99937088 Qualifiers: Qualified Codes: N30.00 - Acute cystitis without hematuria (5) Proteinuria ICD Codes: R80.9 - Proteinuria, unspecified SNOMED: 26681046 Qualifiers: Qualified Codes: R80.9 - Proteinuria, unspecified Assessment/Plan increase Levemir to 18 units daily add Novolog 4 units ac tid DC Metformin 500 mg bid continue NISS Subjective Allergies: Coded Allergies: No Known Allergies (Unverified , 10/07/17) All Systems: reviewed and negative except above Subjective events noted Objective Last 24 Hour Vital Signs Date Time Temp Pulse Resp B/P (MAP) Pulse Ox O2 Delivery O2 Flow Rate FiO2 10/09/17 04:00 82 10/09/17 04:00 98.3 85 20 159/91 (113) 95 98.3 10/09/17 00:00 98.1 79 20 139/74 (95) 96 98.1 10/09/17 00:00 79 10/08/17 21:13 86 159/76 10/08/17 21:13 159/76 10/08/17 21:00 Room Air 10/08/17 20:00 97.8 82 20 159/76 (103) 94 97.8 10/08/17 20:00 86 10/08/17 16:00 70 10/08/17 16:00 97.5 71 18 137/70 (92) 95 97.5 10/08/17 12:01 97.7 77 18 143/87 (105) 97 97.7 10/08/17 12:00 83 10/08/17 09:00 Room Air 10/08/17 08:10 72 138/84 10/08/17 08:09 138/84 10/08/17 08:00 71 10/08/17 07:59 97.9 72 18 138/84 (102) 97 97.9 Intake and Output 10/08/17 10/09/17 19:00 07:00 Intake Total 240 ml Balance 240 ml Intake Oral 240 ml # Voids 3 Laboratory Tests 10/08/17 06:40: White Blood Count 7.5, Red Blood Count 4.69, Hemoglobin 14.6, Hematocrit 45.5, Mean Corpuscular Volume 97, Mean Corpuscular Hemoglobin 31.1H, Mean Corpuscular Hemoglobin Concent 32.0, Red Cell Distribution Width 14.9H, Platelet Count 197, Mean Platelet Volume 9.1, Neutrophils (%) (Auto) 59.9, Lymphocytes (%) (Auto) 28.0, Monocytes (%) (Auto) 9.7, Eosinophils (%) (Auto) 1.0, Basophils (%) (Auto ) 1.4, Sodium Level 129L, Potassium Level 3.7, Chloride Level 94L, Carbon Dioxide Level 30, Anion Gap 5, Blood Urea Nitrogen 16, Creatinine 0.5L, Estimat Glomerular Filtration Rate > 60, Glucose Level 220H, Osmolality 284L, Uric Acid 2.6, Calcium Level 8.7, Phosphorus Level 3.9, Magnesium Level 1.7L, Total Bilirubin 18.1H, Direct Bilirubin 14.3H, Aspartate Amino Transf (AST/SGOT) 118H , Alanine Aminotransferase (ALT/SGPT) 215H, Alkaline Phosphatase 1133H, Ammonia 60H, Total Protein 5.6L, Albumin 1.8L Height (Feet): 5 Height (Inches): 1.00 Weight (Pounds): 164 General Appearance: no apparent distress Neck: normal alignment Cardiovascular: regular rhythm Respiratory/Chest: lungs clear Abdomen: normal bowel sounds Edema: no edema noted Arm (L), no edema noted Arm (R), no edema noted Leg (L), no edema noted Leg (R), no edema noted Pedal (L), no edema noted Pedal (R), no edema noted Generalized Objective Current Medications Medications (Trade) Dose Ordered Sig/Dutch Route PRN Reason Start Time Stop Time Status Last Admin Dose Admin Amlodipine Besylate (Norvasc) 2.5 mg DAILY ORAL 10/09/17 09:00 11/08/17 08:59 Carvedilol (Coreg) 12.5 mg EVERY 12 HOURS ORAL 10/05/17 21:00 11/03/17 08:59 10/08/17 21:13 Clotrimazole (Lotrimin) 1 applic THREE TIMES A DAY TOPIC 10/05/17 18:00 11/04/17 17:59 10/08/17 18:09 Dextrose (Dextrose 50%) 25 ml STAT PRN IV Hypoglycemia 10/04/17 06:30 11/03/17 06:29 Dextrose (Dextrose 50%) 50 ml STAT PRN IV Hypoglycemia 10/04/17 06:30 11/03/17 06:29 Diphenhydramine HCl (Benadryl) 25 mg Q4H PRN ORAL Itching 10/06/17 14:30 11/05/17 14:29 10/06/17 15:03 Diphenhydramine HCl (Benadryl) 50 mg HSPRN PRN ORAL Insomnia 10/05/17 21:30 11/04/17 21:29 10/08/17 21:16 Enalapril Maleate (Vasotec) 5 mg EVERY 12 HOURS ORAL 10/04/17 21:00 11/03/17 08:59 10/08/17 21:13 Famotidine (Pepcid) 20 mg BID ORAL 10/04/17 18:00 11/03/17 17:59 10/08/17 18:09 Furosemide (Lasix) 20 mg BID IV 10/08/17 18:00 11/03/17 08:59 10/08/17 18:09 Gadobutrol (Gadavist) 7.5 mmol ONCE PRN IV radiology procedure 10/08/17 15:45 10/10/17 15:44 Insulin Aspart (NovoLOG) BEFORE MEALS AND HS SUBQ 10/04/17 06:30 11/03/17 06:29 10/09/17 06:10 Insulin Detemir (Levemir) 14 units DAILY SUBQ 10/08/17 09:00 11/03/17 08:59 10/08/17 09:33 Lactulose (Cephulac) 10 gm BID ORAL 10/07/17 14:30 11/06/17 14:29 10/08/17 18:08 Levofloxacin 50 ml @ 50 mls/hr Q24H IVPB 10/07/17 14:00 10/14/17 13:59 10/08/17 13:30 Lorazepam (Ativan 2mg/ml 1ml) 0.5 mg ONCE PRN IVP PRIOR TO MRI 10/08/17 16:01 10/09/17 23:59 Metformin HCl (Glucophage) 500 mg BID ORAL 10/07/17 09:00 11/06/17 08:59 10/08/17 18:09 Nitrofurantoin (Macrobid) 100 mg EVERY 12 HOURS ORAL 10/08/17 21:00 11/07/17 20:59 10/08/17 21:13 Spironolactone (Aldactone) 25 mg DAILY ORAL 10/05/17 09:00 11/04/17 08:59 10/08/17 08:09 Item Value Date Time Bedside Blood Glucose 228 mg/dl H 10/09/17 0610 Bedside Blood Glucose 278 mg/dl H 10/08/17 2117 Bedside Blood Glucose 265 mg/dl H 10/08/17 1811 Bedside Blood Glucose 208 mg/dl H 10/08/17 1138 Bedside Blood Glucose 181 mg/dl H 10/08/17 0933 Bedside Blood Glucose 226 mg/dl H 10/08/17 0630 Rad Mccarthy MD Oct 09, 2017 06:32
[2017-10-09 08:00] VITALS: BP 137/70
[2017-10-09 08:09] LABS: BASOPHILS % (AUTO) 1.3 % (0.0-2.0); EOSINOPHILS % (AUTO) 0.4 % (0.0-3.0); HEMOGLOBIN 14.7 G/DL (12.0-16.0); LYMPHOCYTES % (AUTO) 26.6 % (20.0-45.0); MEAN CORPUSCULAR VOLUME 97 FL (80-99); MONOCYTES % (AUTO) 9.5 % (1.0-10.0); NEUTROPHILS % (AUTO) 62.2 % (45.0-75.0); PLATELET COUNT 174 K/UL (150-450); RED BLOOD COUNT 4.65 M/UL (4.20-5.40); RED CELL DISTRIBUTION WIDTH 14.7 % (11.6-14.8); WHITE BLOOD COUNT 6.8 K/UL (4.8-10.8)
[2017-10-09 08:39] LABS: ALANINE AMINOTRANSFERASE 215 U/L (12-78); ALBUMIN 1.8 G/DL (3.4-5.0); ALBUMIN/GLOBULIN RATIO 0.5 (1.0-2.7); ALKALINE PHOSPHATASE 1115 U/L (46-116); ANION GAP 5 mmol/L (5-15); ASPARTATE AMINO TRANSFERASE 132 U/L (15-37); BILIRUBIN,TOTAL 18.2 MG/DL (0.2-1.0); BLOOD UREA NITROGEN 11 mg/dL (7-18); CALCIUM 8.6 MG/DL (8.5-10.1); CARBON DIOXIDE 31 MMOL/L (21-32); CHLORIDE 96 MMOL/L (98-107); CREATININE 0.4 MG/DL (0.55-1.30); POTASSIUM 3.5 MMOL/L (3.5-5.1); SODIUM 132 MMOL/L (136-145)
[2017-10-09 08:41] LABS: BILIRUBIN,DIRECT 14.8 MG/DL (0.0-0.3)
--- NOTE | 2017-10-09 08:56 | Nephrology Progress Note ---
Assessment/Plan Problem List: (1) Proteinuria Assessment: Bilateral pleural effusions (2) UTI (urinary tract infection) (3) Jaundice (4) Acute exacerbation of CHF (congestive heart failure) Assessment: cardiomyopathy (5) LFT elevation Assessment Patient has Proteinuria and Hypoalbuminemia admitted with: Acute exacerbation of CHF (congestive heart failure) Has UTI (urinary tract infection) New onset type 2 diabetes mellitus Anasarca , Jaundice Likely Cirrhosis Plan NPO for MRI today- Adjust BP meds- Optimize cardiac status- GI advise- had liver Bx Keep BS in check up on lasix one dose 3% Saline 2D echo- Global left ventricular hypokinesis . Left ventricular ejection fraction estimated to be 45 %. Kidney HUNG Global left ventricular hypokinesis . Left ventricular ejection fraction estimated to be 45 %. Moderate left ventricular hypertrophy by 2-D. per orders Subjective ROS Limited/Unobtainable: No Constitutional: Reports: malaise Objective Objective Last 24 Hour Vital Signs Date Time Temp Pulse Resp B/P (MAP) Pulse Ox O2 Delivery O2 Flow Rate FiO2 10/09/17 04:00 82 10/09/17 04:00 98.3 85 20 159/91 (113) 95 98.3 10/09/17 00:00 98.1 79 20 139/74 (95) 96 98.1 10/09/17 00:00 79 10/08/17 21:13 86 159/76 10/08/17 21:13 159/76 10/08/17 21:00 Room Air 10/08/17 20:00 97.8 82 20 159/76 (103) 94 97.8 10/08/17 20:00 86 10/08/17 16:00 70 10/08/17 16:00 97.5 71 18 137/70 (92) 95 97.5 10/08/17 12:01 97.7 77 18 143/87 (105) 97 97.7 10/08/17 12:00 83 10/08/17 09:00 Room Air Intake and Output 10/08/17 10/09/17 19:00 07:00 Intake Total 240 ml Balance 240 ml Intake Oral 240 ml # Voids 3 2 Laboratory Tests 10/09/17 07:40: White Blood Count 6.8, Red Blood Count 4.65, Hemoglobin 14.7, Hematocrit 45.0, Mean Corpuscular Volume 97, Mean Corpuscular Hemoglobin 31.7H, Mean Corpuscular Hemoglobin Concent 32.7, Red Cell Distribution Width 14.7, Platelet Count 174, Mean Platelet Volume 9.2, Neutrophils (%) (Auto) 62.2, Lymphocytes (%) (Auto) 26.6, Monocytes (%) (Auto) 9.5, Eosinophils (%) (Auto) 0.4, Basophils (%) (Auto ) 1.3, CSF Herpes Simplex II DNA (PCR) [Pending], Sodium Level 132L, Potassium Level 3.5, Chloride Level 96L, Carbon Dioxide Level 31, Anion Gap 5, Blood Urea Nitrogen 11, Creatinine 0.4L, Estimat Glomerular Filtration Rate > 60, Glucose Level 203H, Calcium Level 8.6, Total Bilirubin 18.2H, Direct Bilirubin 14.8H, Aspartate Amino Transf (AST/SGOT) 132H, Alanine Aminotransferase (ALT/SGPT) 215H , Alkaline Phosphatase 1115H, Total Protein 5.7L, Albumin 1.8L, Globulin 3.9, Albumin/Globulin Ratio 0.5L, Carcinoembryonic Antigen [Pending], Immunoglobulin G [Pending], Immunoglobulin G1 [Pending], Immunoglobulin G2 [Pending], Immunoglobulin G3 [Pending], Immunoglobulin G4 [Pending], Anti-Nuclear Antibody Screen [Pending], Anti-Double Strand DNA Antibody [Pending], Anti-Mitochondrial Antibody [Pending], F-Actin IgG Antibody [Pending], EBV Early Ag Ab (Restrict + Diffuse) [Pending], Stan-Dean Virus Nuclear Ag Ab [Pending], Herpes Simplex Virus I DNA (PCR) [Pending], HIV (1&2) Antibody Rapid [Pending] Height (Feet): 5 Height (Inches): 1.00 Weight (Pounds): 164 General Appearance: no apparent distress Objective no other change Bryan Scanlon MD Oct 09, 2017 08:56
[2017-10-09] MEDS: Lactulose 10gm/15ml UDC ORAL SCH (09:00)
[2017-10-09] MEDS ORDERED: Levemir Flexpen SUBQ SCH (09:00)
--- NOTE | 2017-10-09 09:08 | Pulmonology Progress Note ---
Assessment/Plan Problems: (1) New onset type 2 diabetes mellitus (2) Acute exacerbation of CHF (congestive heart failure) (3) UTI (urinary tract infection) (4) Proteinuria (5) Jaundice (6) LFT elevation Assessment/Plan ASSESSMENT: B pleural effusion in the setting of decompensated HF, cirrhosis, hypoalbuminemia, likely all 2/2 [facility] [place]HF Anasarca and generalized edema Abnormal LFT's Hypoalbuminemia Proteinuria UTI H/O EtOH abuse PLAN: Optimize pulmonary hygiene/mobilize as tolerated Monitor volumes, keep as negative as able F/U GI recs, f/u second opinion path, MRCP, possible steroids if autoimmune, hepatotoxic meds DC'd, monitor liver function F/U cards and renal recs Aspiration precautions DVT Px: Hep SQ FC Subjective Allergies: Coded Allergies: No Known Allergies (Unverified , 10/07/17) Subjective AFVSS, stable on RA, LFT's continue to rise, final path pending Denies SOB, no cough, no CP, no F/C Objective Last 24 Hour Vital Signs Date Time Temp Pulse Resp B/P (MAP) Pulse Ox O2 Delivery O2 Flow Rate FiO2 10/09/17 04:00 82 10/09/17 04:00 98.3 85 20 159/91 (113) 95 98.3 10/09/17 00:00 98.1 79 20 139/74 (95) 96 98.1 10/09/17 00:00 79 10/08/17 21:13 86 159/76 10/08/17 21:13 159/76 10/08/17 21:00 Room Air 10/08/17 20:00 97.8 82 20 159/76 (103) 94 97.8 10/08/17 20:00 86 10/08/17 16:00 70 10/08/17 16:00 97.5 71 18 137/70 (92) 95 97.5 10/08/17 12:01 97.7 77 18 143/87 (105) 97 97.7 10/08/17 12:00 83 Intake and Output 10/08/17 10/09/17 19:00 07:00 Intake Total 240 ml Balance 240 ml Intake Oral 240 ml # Voids 3 2 General Appearance: no acute distress, other - jaundiced HEENT: normocephalic, atraumatic, other - icteric sclera Respiratory/Chest: chest wall non-tender, lungs clear, normal breath sounds, no respiratory distress Cardiovascular: normal peripheral pulses, normal rate, regular rhythm Abdomen: normal bowel sounds, soft, non tender, no organomegaly, non distended , no mass Extremities: no cyanosis, no clubbing, no edema Laboratory Tests 10/09/17 07:40: White Blood Count 6.8, Red Blood Count 4.65, Hemoglobin 14.7, Hematocrit 45.0, Mean Corpuscular Volume 97, Mean Corpuscular Hemoglobin 31.7H, Mean Corpuscular Hemoglobin Concent 32.7, Red Cell Distribution Width 14.7, Platelet Count 174, Mean Platelet Volume 9.2, Neutrophils (%) (Auto) 62.2, Lymphocytes (%) (Auto) 26.6, Monocytes (%) (Auto) 9.5, Eosinophils (%) (Auto) 0.4, Basophils (%) (Auto ) 1.3, CSF Herpes Simplex II DNA (PCR) [Pending], Sodium Level 132L, Potassium Level 3.5, Chloride Level 96L, Carbon Dioxide Level 31, Anion Gap 5, Blood Urea Nitrogen 11, Creatinine 0.4L, Estimat Glomerular Filtration Rate > 60, Glucose Level 203H, Calcium Level 8.6, Total Bilirubin 18.2H, Direct Bilirubin 14.8H, Aspartate Amino Transf (AST/SGOT) 132H, Alanine Aminotransferase (ALT/SGPT) 215H , Alkaline Phosphatase 1115H, Total Protein 5.7L, Albumin 1.8L, Globulin 3.9, Albumin/Globulin Ratio 0.5L, Carcinoembryonic Antigen [Pending], Immunoglobulin G [Pending], Immunoglobulin G1 [Pending], Immunoglobulin G2 [Pending], Immunoglobulin G3 [Pending], Immunoglobulin G4 [Pending], Anti-Nuclear Antibody Screen [Pending], Anti-Double Strand DNA Antibody [Pending], Anti-Mitochondrial Antibody [Pending], F-Actin IgG Antibody [Pending], EBV Early Ag Ab (Restrict + Diffuse) [Pending], Stan-Dean Virus Nuclear Ag Ab [Pending], Herpes Simplex Virus I DNA (PCR) [Pending], HIV (1&2) Antibody Rapid [Pending] Current Medications Medications (Trade) Dose Ordered Sig/Dutch Route PRN Reason Start Time Stop Time Status Last Admin Dose Admin Amlodipine Besylate (Norvasc) 2.5 mg DAILY ORAL 10/09/17 09:00 11/08/17 08:59 Carvedilol (Coreg) 12.5 mg EVERY 12 HOURS ORAL 10/05/17 21:00 11/03/17 08:59 10/08/17 21:13 Clotrimazole (Lotrimin) 1 applic THREE TIMES A DAY TOPIC 10/05/17 18:00 11/04/17 17:59 10/08/17 18:09 Dextrose (Dextrose 50%) 25 ml STAT PRN IV Hypoglycemia 10/04/17 06:30 11/03/17 06:29 Dextrose (Dextrose 50%) 25 ml STAT PRN IV Hypoglycemia 10/09/17 06:45 11/08/17 06:44 Dextrose (Dextrose 50%) 50 ml STAT PRN IV Hypoglycemia 10/04/17 06:30 11/03/17 06:29 Dextrose (Dextrose 50%) 50 ml STAT PRN IV Hypoglycemia 10/09/17 06:45 11/08/17 06:44 Diphenhydramine HCl (Benadryl) 25 mg Q4H PRN ORAL Itching 10/06/17 14:30 11/05/17 14:29 10/06/17 15:03 Diphenhydramine HCl (Benadryl) 50 mg HSPRN PRN ORAL Insomnia 10/05/17 21:30 11/04/17 21:29 10/08/17 21:16 Enalapril Maleate (Vasotec) 5 mg EVERY 12 HOURS ORAL 10/04/17 21:00 11/03/17 08:59 10/08/17 21:13 Famotidine (Pepcid) 20 mg BID ORAL 10/04/17 18:00 11/03/17 17:59 10/08/17 18:09 Furosemide (Lasix) 20 mg BID IV 10/08/17 18:00 11/03/17 08:59 10/08/17 18:09 Gadobutrol (Gadavist) 7.5 mmol ONCE PRN IV radiology procedure 10/08/17 15:45 10/10/17 15:44 Insulin Aspart (NovoLOG) BEFORE MEALS AND HS SUBQ 10/04/17 06:30 11/03/17 06:29 10/09/17 06:10 Insulin Aspart (NovoLOG) 4 units NOVOTIAC SUBQ 10/09/17 11:50 11/08/17 11:49 Insulin Detemir (Levemir) 18 units DAILY SUBQ 10/09/17 09:00 11/03/17 08:59 Lactulose (Cephulac) 10 gm BID ORAL 10/07/17 14:30 11/06/17 14:29 10/08/17 18:08 Levofloxacin 50 ml @ 50 mls/hr Q24H IVPB 10/07/17 14:00 10/14/17 13:59 10/08/17 13:30 Lorazepam (Ativan 2mg/ml 1ml) 0.5 mg ONCE PRN IVP PRIOR TO MRI 10/08/17 16:01 10/09/17 23:59 Nitrofurantoin (Macrobid) 100 mg EVERY 12 HOURS ORAL 10/08/17 21:00 11/07/17 20:59 10/08/17 21:13 Spironolactone (Aldactone) 25 mg DAILY ORAL 10/05/17 09:00 11/04/17 08:59 10/08/17 08:09 Abhinav Bullock MD Oct 09, 2017 09:08
[2017-10-09] MEDS: Spironolactone 25mg tab ORAL SCH (09:37)
[2017-10-09 09:38] VITALS: BP 137/70
[2017-10-09] MEDS: Enalapril 5mg tab ORAL SCH (09:38)
[2017-10-09] MEDS: Carvedilol 12.5mg tab ORAL SCH (09:38)
--- NOTE | 2017-10-09 10:03 | GI Progress Note ---
Assessment/Plan Problems: (1) LFT elevation ICD Codes: R94.5 - Abnormal results of liver function studies SNOMED: 248714422, 827562355 (2) New onset type 2 diabetes mellitus ICD Codes: E11.9 - Type 2 diabetes mellitus without complications SNOMED: 81583917 (3) Acute exacerbation of CHF (congestive heart failure) ICD Codes: I50.9 - Heart failure, unspecified SNOMED: 12673840 Qualifiers: Qualified Codes: I50.9 - Heart failure, unspecified (4) Jaundice ICD Codes: R17 - Unspecified jaundice SNOMED: 57196678 Status: unchanged Status Narrative Discussed with Dr. Desai. Assessment/Plan Assessment - abnormal LFT, pattern of cholestatic disease - severe - ? drug induced (? doxycycline) - ? autoimmune/PBC/PSC - not likely, await final pathology report - ? IgG4 associated cholangitis - ? infiltrative/granulomatous disorder - not seen on path - ? malignant, not seen on imaging so far - DM - CHF - Jaundice Recommendations - d/c qll non-vital meds - follow LFT - f/u AMA results - await final path report from [facility] - Re check EDWARD, check AMA/ASMA, check viral pathology Ab and PCR, Check IgG4 - Repeat MRI/MRCP with ativan - patient agrees - begin lactulose - follow NH3 The patient was seen and examined at bedside and all new and available data was reviewed in the patients chart. I agree with the above findings, impression and plan. (Patient seen earlier today. Signature stamp does not reflect patient encounter time.). - Daniel Desai MD Subjective Subjective depressed jaundice anxious wants to go home Objective Last 24 Hour Vital Signs Date Time Temp Pulse Resp B/P (MAP) Pulse Ox O2 Delivery O2 Flow Rate FiO2 10/09/17 09:38 71 137/70 10/09/17 09:38 137/70 10/09/17 09:37 71 137/70 10/09/17 08:00 97.5 71 18 137/70 (92) 95 97.5 10/09/17 04:00 82 10/09/17 04:00 98.3 85 20 159/91 (113) 95 98.3 10/09/17 00:00 98.1 79 20 139/74 (95) 96 98.1 10/09/17 00:00 79 8/26/18 21:13 86 159/76 10/08/17 21:13 159/76 10/08/17 21:00 Room Air 10/08/17 20:00 97.8 82 20 159/76 (103) 94 97.8 10/08/17 20:00 86 10/08/17 16:00 70 10/08/17 16:00 97.5 71 18 137/70 (92) 95 97.5 10/08/17 12:01 97.7 77 18 143/87 (105) 97 97.7 10/08/17 12:00 83 Intake and Output 10/08/17 10/09/17 19:00 07:00 Intake Total 240 ml Balance 240 ml Intake Oral 240 ml # Voids 3 2 Laboratory Tests Test 10/09/17 07:40 White Blood Count 6.8 K/UL (4.8-10.8) Red Blood Count 4.65 M/UL (4.20-5.40) Hemoglobin 14.7 G/DL (12.0-16.0) Hematocrit 45.0 % (37.0-47.0) Mean Corpuscular Volume 97 FL (80-99) Mean Corpuscular Hemoglobin 31.7 PG (27.0-31.0) H Mean Corpuscular Hemoglobin Concent 32.7 G/DL (32.0-36.0) Red Cell Distribution Width 14.7 % (11.6-14.8) Platelet Count 174 K/UL (150-450) Mean Platelet Volume 9.2 FL (6.5-10.1) Neutrophils (%) (Auto) 62.2 % (45.0-75.0) Lymphocytes (%) (Auto) 26.6 % (20.0-45.0) Monocytes (%) (Auto) 9.5 % (1.0-10.0) Eosinophils (%) (Auto) 0.4 % (0.0-3.0) Basophils (%) (Auto) 1.3 % (0.0-2.0) CSF Herpes Simplex II DNA (PCR) Pending Sodium Level 132 MMOL/L (136-145) L Potassium Level 3.5 MMOL/L (3.5-5.1) Chloride Level 96 MMOL/L (98-107) L Carbon Dioxide Level 31 MMOL/L (21-32) Anion Gap 5 mmol/L (5-15) Blood Urea Nitrogen 11 mg/dL (7-18) Creatinine 0.4 MG/DL (0.55-1.30) L Estimat Glomerular Filtration Rate > 60 mL/min (>60) Glucose Level 203 MG/DL (74-106) H Calcium Level 8.6 MG/DL (8.5-10.1) Total Bilirubin 18.2 MG/DL (0.2-1.0) H Direct Bilirubin 14.8 MG/DL (0.0-0.3) H Aspartate Amino Transf (AST/SGOT) 132 U/L (15-37) H Alanine Aminotransferase (ALT/SGPT) 215 U/L (12-78) H Alkaline Phosphatase 1115 U/L (46-116) H Total Protein 5.7 G/DL (6.4-8.2) L Albumin 1.8 G/DL (3.4-5.0) L Globulin 3.9 g/dL Albumin/Globulin Ratio 0.5 (1.0-2.7) L Carcinoembryonic Antigen Pending Immunoglobulin G Pending Immunoglobulin G1 Pending Immunoglobulin G2 Pending Immunoglobulin G3 Pending Immunoglobulin G4 Pending Anti-Nuclear Antibody Screen Pending Anti-Double Strand DNA Antibody Pending Anti-Mitochondrial Antibody Pending F-Actin IgG Antibody Pending EBV Early Ag Ab (Restrict +Diffuse) Pending Stan-Dean Virus Nuclear Ag Ab Pending Herpes Simplex Virus I DNA (PCR) Pending HIV (1&2) Antibody Rapid Negative (NEGATIVE) Height (Feet): 5 Height (Inches): 1.00 Weight (Pounds): 164 General Appearance: WD/WN, no apparent distress, alert Cardiovascular: normal rate Respiratory/Chest: normal breath sounds, no respiratory distress Abdominal Exam: normal bowel sounds, non tender, soft Extremities: normal range of motion, non-tender Neyda Mackey NP Oct 09, 2017 10:03
--- NOTE | 2017-10-09 10:30 | General Progress Note ---
Assessment/Plan Status: stable Assessment/Plan MDD Anxiety d/o -Cont current meds -provided ro/st Subjective Date patient seen: Oct 09, 2017 Neurologic/Psychiatric: Reports: anxiety, depressed, emotional problems Allergies: Coded Allergies: No Known Allergies (Unverified , 10/07/17) Objective Last 24 Hour Vital Signs Date Time Temp Pulse Resp B/P (MAP) Pulse Ox O2 Delivery O2 Flow Rate FiO2 10/09/17 09:38 71 137/70 10/09/17 09:38 137/70 10/09/17 09:37 71 137/70 10/09/17 08:00 97.5 71 18 137/70 (92) 95 97.5 10/09/17 04:00 82 10/09/17 04:00 98.3 85 20 159/91 (113) 95 98.3 10/09/17 00:00 98.1 79 20 139/74 (95) 96 98.1 10/09/17 00:00 79 10/08/17 21:13 86 159/76 10/08/17 21:13 159/76 10/08/17 21:00 Room Air 10/08/17 20:00 97.8 82 20 159/76 (103) 94 97.8 10/08/17 20:00 86 10/08/17 16:00 70 10/08/17 16:00 97.5 71 18 137/70 (92) 95 97.5 10/08/17 12:01 97.7 77 18 143/87 (105) 97 97.7 10/08/17 12:00 83 Intake and Output 10/08/17 10/09/17 19:00 07:00 Intake Total 240 ml Balance 240 ml Intake Oral 240 ml # Voids 3 2 Laboratory Tests 10/09/17 07:40: White Blood Count 6.8, Red Blood Count 4.65, Hemoglobin 14.7, Hematocrit 45.0, Mean Corpuscular Volume 97, Mean Corpuscular Hemoglobin 31.7H, Mean Corpuscular Hemoglobin Concent 32.7, Red Cell Distribution Width 14.7, Platelet Count 174, Mean Platelet Volume 9.2, Neutrophils (%) (Auto) 62.2, Lymphocytes (%) (Auto) 26.6, Monocytes (%) (Auto) 9.5, Eosinophils (%) (Auto) 0.4, Basophils (%) (Auto ) 1.3, CSF Herpes Simplex II DNA (PCR) [Pending], Sodium Level 132L, Potassium Level 3.5, Chloride Level 96L, Carbon Dioxide Level 31, Anion Gap 5, Blood Urea Nitrogen 11, Creatinine 0.4L, Estimat Glomerular Filtration Rate > 60, Glucose Level 203H, Calcium Level 8.6, Total Bilirubin 18.2H, Direct Bilirubin 14.8H, Aspartate Amino Transf (AST/SGOT) 132H, Alanine Aminotransferase (ALT/SGPT) 215H , Alkaline Phosphatase 1115H, Total Protein 5.7L, Albumin 1.8L, Globulin 3.9, Albumin/Globulin Ratio 0.5L, Carcinoembryonic Antigen [Pending], Immunoglobulin G [Pending], Immunoglobulin G1 [Pending], Immunoglobulin G2 [Pending], Immunoglobulin G3 [Pending], Immunoglobulin G4 [Pending], Anti-Nuclear Antibody Screen [Pending], Anti-Double Strand DNA Antibody [Pending], Anti-Mitochondrial Antibody [Pending], F-Actin IgG Antibody [Pending], EBV Early Ag Ab (Restrict + Diffuse) [Pending], Stan-Dean Virus Nuclear Ag Ab [Pending], Herpes Simplex Virus I DNA (PCR) [Pending], HIV (1&2) Antibody Rapid Negative Height (Feet): 5 Height (Inches): 1.00 Weight (Pounds): 164 General Appearance: no apparent distress, alert Neurologic: oriented x 3, responsive, depressed affect Rodrigo Maldonado MD Oct 09, 2017 10:30
--- NOTE | 2017-10-09 12:32 | Infectious Diseases Prog Note ---
Assessment/Plan Assessment/Plan A; E. coli UTI Groin candidal rash Jaundice, DM type 2 CHF P: Continue Levaquin & Nitrofurantoin will f/u liver biopsy & MRI Subjective ROS Limited/Unobtainable: No Constitutional: Reports: no symptoms Respiratory: Reports: no symptoms Cardiovascular: Reports: no symptoms Gastrointestinal/Abdominal: Reports: no symptoms Genitourinary: Reports: no symptoms Musculoskeletal: Reports: no symptoms Allergies: Coded Allergies: No Known Allergies (Unverified , 10/07/17) Objective Vital Signs Last 24 Hour Vital Signs Date Time Temp Pulse Resp B/P (MAP) Pulse Ox O2 Delivery O2 Flow Rate FiO2 10/09/17 09:38 71 137/70 10/09/17 09:38 137/70 10/09/17 09:37 71 137/70 10/09/17 08:00 97.5 71 18 137/70 (92) 95 97.5 10/09/17 08:00 80 10/09/17 04:00 82 10/09/17 04:00 98.3 85 20 159/91 (113) 95 98.3 10/09/17 00:00 98.1 79 20 139/74 (95) 96 98.1 10/09/17 00:00 79 10/08/17 21:13 86 159/76 10/08/17 21:13 159/76 10/08/17 21:00 Room Air 10/08/17 20:00 97.8 82 20 159/76 (103) 94 97.8 10/08/17 20:00 86 10/08/17 16:00 70 10/08/17 16:00 97.5 71 18 137/70 (92) 95 97.5 Height (Feet): 5 Height (Inches): 1.00 Weight (Pounds): 164 General Appearance: no acute distress HEENT: other - icterus Respiratory/Chest: lungs clear Cardiovascular: normal rate Abdomen: soft, non tender Extremities: other - edema of legs Neurologic/Psychiatric: alert, oriented x 3, responsive Laboratory Tests Test 10/09/17 07:40 White Blood Count 6.8 K/UL (4.8-10.8) Red Blood Count 4.65 M/UL (4.20-5.40) Hemoglobin 14.7 G/DL (12.0-16.0) Hematocrit 45.0 % (37.0-47.0) Mean Corpuscular Volume 97 FL (80-99) Mean Corpuscular Hemoglobin 31.7 PG (27.0-31.0) H Mean Corpuscular Hemoglobin Concent 32.7 G/DL (32.0-36.0) Red Cell Distribution Width 14.7 % (11.6-14.8) Platelet Count 174 K/UL (150-450) Mean Platelet Volume 9.2 FL (6.5-10.1) Neutrophils (%) (Auto) 62.2 % (45.0-75.0) Lymphocytes (%) (Auto) 26.6 % (20.0-45.0) Monocytes (%) (Auto) 9.5 % (1.0-10.0) Eosinophils (%) (Auto) 0.4 % (0.0-3.0) Basophils (%) (Auto) 1.3 % (0.0-2.0) CSF Herpes Simplex II DNA (PCR) Pending Sodium Level 132 MMOL/L (136-145) L Potassium Level 3.5 MMOL/L (3.5-5.1) Chloride Level 96 MMOL/L (98-107) L Carbon Dioxide Level 31 MMOL/L (21-32) Anion Gap 5 mmol/L (5-15) Blood Urea Nitrogen 11 mg/dL (7-18) Creatinine 0.4 MG/DL (0.55-1.30) L Estimat Glomerular Filtration Rate > 60 mL/min (>60) Glucose Level 203 MG/DL (74-106) H Calcium Level 8.6 MG/DL (8.5-10.1) Total Bilirubin 18.2 MG/DL (0.2-1.0) H Direct Bilirubin 14.8 MG/DL (0.0-0.3) H Aspartate Amino Transf (AST/SGOT) 132 U/L (15-37) H Alanine Aminotransferase (ALT/SGPT) 215 U/L (12-78) H Alkaline Phosphatase 1115 U/L (46-116) H Total Protein 5.7 G/DL (6.4-8.2) L Albumin 1.8 G/DL (3.4-5.0) L Globulin 3.9 g/dL Albumin/Globulin Ratio 0.5 (1.0-2.7) L Carcinoembryonic Antigen Pending Immunoglobulin G Pending Immunoglobulin G1 Pending Immunoglobulin G2 Pending Immunoglobulin G3 Pending Immunoglobulin G4 Pending Anti-Nuclear Antibody Screen Pending Anti-Double Strand DNA Antibody Pending Anti-Mitochondrial Antibody Pending F-Actin IgG Antibody Pending EBV Early Ag Ab (Restrict +Diffuse) Pending Stan-Dean Virus Nuclear Ag Ab Pending Herpes Simplex Virus I DNA (PCR) Pending HIV (1&2) Antibody Rapid Negative (NEGATIVE) Current Medications Medications (Trade) Dose Ordered Sig/Dutch Route PRN Reason Start Time Stop Time Status Last Admin Dose Admin Amlodipine Besylate (Norvasc) 2.5 mg DAILY ORAL 10/09/17 09:00 11/08/17 08:59 10/09/17 09:37 Carvedilol (Coreg) 12.5 mg EVERY 12 HOURS ORAL 10/05/17 21:00 11/03/17 08:59 10/09/17 09:38 Clotrimazole (Lotrimin) 1 applic THREE TIMES A DAY TOPIC 10/05/17 18:00 11/04/17 17:59 10/09/17 09:44 Dextrose (Dextrose 50%) 25 ml STAT PRN IV Hypoglycemia 10/09/17 06:45 11/08/17 06:44 Dextrose (Dextrose 50%) 50 ml STAT PRN IV Hypoglycemia 10/09/17 06:45 11/08/17 06:44 Diphenhydramine HCl (Benadryl) 25 mg Q4H PRN ORAL Itching 10/06/17 14:30 11/05/17 14:29 10/06/17 15:03 Diphenhydramine HCl (Benadryl) 50 mg HSPRN PRN ORAL Insomnia 10/05/17 21:30 11/04/17 21:29 10/08/17 21:16 Enalapril Maleate (Vasotec) 5 mg EVERY 12 HOURS ORAL 10/04/17 21:00 11/03/17 08:59 10/09/17 09:38 Famotidine (Pepcid) 20 mg BID ORAL 10/04/17 18:00 11/03/17 17:59 10/09/17 09:38 Furosemide (Lasix) 20 mg BID IV 10/08/17 18:00 11/03/17 08:59 10/09/17 09:39 Gadobutrol (Gadavist) 7.5 mmol ONCE PRN IV radiology procedure 10/08/17 15:45 10/10/17 15:44 Insulin Aspart (NovoLOG) BEFORE MEALS AND HS SUBQ 10/04/17 06:30 11/03/17 06:29 10/09/17 06:10 Insulin Aspart (NovoLOG) 4 units NOVOTIAC SUBQ 10/09/17 11:50 11/08/17 11:49 Insulin Detemir (Levemir) 18 units DAILY SUBQ 10/09/17 09:00 11/03/17 08:59 10/09/17 09:44 Lactulose (Cephulac) 10 gm BID ORAL 10/07/17 14:30 11/06/17 14:29 10/08/17 18:08 Levofloxacin (Levaquin) 250 mg DAILY ORAL 10/09/17 18:00 10/14/17 12:00 Lorazepam (Ativan 2mg/ml 1ml) 0.5 mg ONCE PRN IVP PRIOR TO MRI 10/08/17 16:01 10/09/17 23:59 Nitrofurantoin (Macrobid) 100 mg EVERY 12 HOURS ORAL 10/08/17 21:00 11/07/17 20:59 10/09/17 09:38 Spironolactone (Aldactone) 25 mg DAILY ORAL 10/05/17 09:00 11/04/17 08:59 10/09/17 09:37 Ranjeet Patel MD Oct 09, 2017 12:32
--- NOTE | 2017-10-09 13:50 | General Progress Note ---
Assessment/Plan Problem List: (1) Acute exacerbation of CHF (congestive heart failure) ICD Codes: I50.9 - Heart failure, unspecified SNOMED: 92399268 Qualifiers: Qualified Codes: I50.9 - Heart failure, unspecified (2) LFT elevation ICD Codes: R94.5 - Abnormal results of liver function studies SNOMED: 814952936, 565129389 (3) New onset type 2 diabetes mellitus ICD Codes: E11.9 - Type 2 diabetes mellitus without complications SNOMED: 11767971 Status: stable, progressing Assessment/Plan ot pt diet bp bs control cbc bmp am dc plan w hh if all clear Subjective Constitutional: Reports: weakness Allergies: Coded Allergies: No Known Allergies (Unverified , 10/07/17) All Systems: reviewed and negative except above Subjective calm in room sleepy Objective Last 24 Hour Vital Signs Date Time Temp Pulse Resp B/P (MAP) Pulse Ox O2 Delivery O2 Flow Rate FiO2 10/09/17 09:38 71 137/70 10/09/17 09:38 137/70 10/09/17 09:37 71 137/70 10/09/17 09:00 Room Air 10/09/17 08:00 97.5 71 18 137/70 (92) 95 97.5 10/09/17 08:00 80 10/09/17 04:00 82 10/09/17 04:00 98.3 85 20 159/91 (113) 95 98.3 10/09/17 00:00 98.1 79 20 139/74 (95) 96 98.1 10/09/17 00:00 79 10/08/17 21:13 86 159/76 10/08/17 21:13 159/76 10/08/17 21:00 Room Air 10/08/17 20:00 97.8 82 20 159/76 (103) 94 97.8 10/08/17 20:00 86 10/08/17 16:00 70 10/08/17 16:00 97.5 71 18 137/70 (92) 95 97.5 Intake and Output 10/08/17 10/09/17 19:00 07:00 Intake Total 240 ml Balance 240 ml Intake Oral 240 ml # Voids 3 2 Laboratory Tests 10/09/17 07:40: White Blood Count 6.8, Red Blood Count 4.65, Hemoglobin 14.7, Hematocrit 45.0, Mean Corpuscular Volume 97, Mean Corpuscular Hemoglobin 31.7H, Mean Corpuscular Hemoglobin Concent 32.7, Red Cell Distribution Width 14.7, Platelet Count 174, Mean Platelet Volume 9.2, Neutrophils (%) (Auto) 62.2, Lymphocytes (%) (Auto) 26.6, Monocytes (%) (Auto) 9.5, Eosinophils (%) (Auto) 0.4, Basophils (%) (Auto ) 1.3, CSF Herpes Simplex II DNA (PCR) [Pending], Sodium Level 132L, Potassium Level 3.5, Chloride Level 96L, Carbon Dioxide Level 31, Anion Gap 5, Blood Urea Nitrogen 11, Creatinine 0.4L, Estimat Glomerular Filtration Rate > 60, Glucose Level 203H, Calcium Level 8.6, Total Bilirubin 18.2H, Direct Bilirubin 14.8H, Aspartate Amino Transf (AST/SGOT) 132H, Alanine Aminotransferase (ALT/SGPT) 215H , Alkaline Phosphatase 1115H, Total Protein 5.7L, Albumin 1.8L, Globulin 3.9, Albumin/Globulin Ratio 0.5L, Carcinoembryonic Antigen [Pending], Immunoglobulin G [Pending], Immunoglobulin G1 [Pending], Immunoglobulin G2 [Pending], Immunoglobulin G3 [Pending], Immunoglobulin G4 [Pending], Anti-Nuclear Antibody Screen [Pending], Anti-Double Strand DNA Antibody [Pending], Anti-Mitochondrial Antibody [Pending], F-Actin IgG Antibody [Pending], EBV Early Ag Ab (Restrict + Diffuse) [Pending], Stan-Dean Virus Nuclear Ag Ab [Pending], Herpes Simplex Virus I DNA (PCR) [Pending], HIV (1&2) Antibody Rapid Negative Height (Feet): 5 Height (Inches): 1.00 Weight (Pounds): 164 General Appearance: lethargic EENT: normal ENT inspection Neck: normal alignment Cardiovascular: normal peripheral pulses, normal rate, regular rhythm Respiratory/Chest: chest wall non-tender, decreased breath sounds Abdomen: normal bowel sounds, non tender, soft Extremities: normal inspection Edema: no edema noted Arm (L), no edema noted Arm (R), no edema noted Leg (L), no edema noted Leg (R), no edema noted Pedal (L), no edema noted Pedal (R), no edema noted Generalized Neurologic: motor weakness Skin: normal pigmentation, warm/dry Collin Cordova DO Oct 09, 2017 13:50
--- NOTE | 2017-10-09 16:46 | Diagnostic Imaging Report ---
Indication: Abnormal liver function tests. History of jaundice and abdominal pain. Last MRI abdomen was nondiagnostic. Technique: MRI of the abdomen was performed in a 1.5 Vianca magnet. Pulse sequences obtained include coronal and axial T2 single shot fast spin echo breathhold and respiratory gated coronal T2 3-D M.R.C.P.; this data set was displayed in different projections or MIPs. In addition, multiple coronal oblique thin T2 weighted, fat saturated SE sequences obtained through the CBD. Comparison: MRI abdomen 10/05/2017, CT abdomen pelvis 10/04/2017 Findings: The study is degraded by motion. There is no biliary ductal dilatation seen. The gallbladder is grossly unremarkable in appearance. The study is of a very limited nature especially post gadolinium sequences. There is no free fluid seen. There are bilateral pleural effusions present which are small slightly larger on the right compared to the left. The main pancreatic duct is nondilated. IMPRESSION: Very limited study due to breathing motion. No biliary ductal dilatation identified. Bilateral pleural effusions
--- NOTE | 2017-10-10 10:28 | Discharge Summary ---
Discharge Summary Discharge Summary _ DATE OF ADMISSION: 10/03/2017 DATE OF DISCHARGE: 10/09/2017. Patient's left against medical advice REASON FOR ADMISSION: 62 years old female with history of fibromyalgia, presented to emergency department with chief complaint of feeling sick. The symptoms were ongoing for over 5 weeks. She reported generalized pain, poor appetite and fluid in her lungs. Patient was given doxycycline. She completed treatment , but was not feeding better afterwards. No chest pain. No nausea ,no vomiting. Upon evaluation vital signs revealws tachycardia and elevated blood pressure 176 /91. Laboratory workup revealed leukocytosis WBC 11.8, stable hemoglobin and hematocrit. Sodium 129. Chloride 94. BUN 14, creatinine 0.5. Glucose 282. AST 99, ALT 214, alkaline phosphatase 905. Troponin negative. Pro BNP 2539. EKG revealed sinus tachycardia , no acute ischemic changes. Urinalysis with evidence of UTI, and + 3 protein, +4glucose . Chest x-ray revealed cardiomegaly with evidence of congestive heart failure. CT of the abdomen and pelvis revealed evidence of anasarca with generalized edema of the subcutaneous fat, bilateral pleural effusion. Cardiomegaly. No acute abdominal or pelvic process otherwise. No biliary ductal dilatation or abnormality hepatic morphology were seen. Prominent peripancreatic node of uncertain significance. Patient admitted with diagnoses of acute CHF exacerbation, urinary tract infection infection ,new onset of diabetes mellitus, anasarca, jaundice , transaminitis, proteinuria. CONSULTANTS: rough carpenter Dr. Gibson pulmonary Dr. Ara Alaniz specialist Dr. Hagen GI specialist Dr. Desai oil expert Dr. Scanlon psychiatrist artist representative Dr. Mccarthy pain specialist Dr. Tamayo HOSPITAL COURSE: Patient admitted. Echocardiogram revealed ejection fraction of 45% with global left ventricular hypokinesis. Mild mitral regurgitation. Right ventricular systolic pressure of 29. Vacuum Form Operator closely followed. Patient started on intravenous diuresis with close monitoring of cardiorenal parameters and volumes. Anti-failure regimen was titrated as per rough carpenter. Antihypertensive regimen optimized by rough carpenter, and blood pressure stabilized. Sports Medicine Specialist closely followed. Renal parameters and electrolytes were closely monitored. Patient undergone infusion of 3%of sodium chloride for hyponatremia. Sodium up to 132 prior to patient signing AMA. Engineer First Assistant followed for new-onset of diabetes. Hemoglobin A1c 8.7. Patient started on short-acting pre-meal insulin, long-acting Levemir and sliding scale of insulin as needed. Patient was educated on basic principles of diabetes management, including diabetic diet. Patient was emphasized importance of close outpatient follow up with primary care provider for diabetes management. GI specialist closely followed. Abdominal ultrasound revealed normal kidney echogenicity. No hydronephrosis or renal stone. Smooth liver contour.. No focal hepatic mass or lesion appreciated. No biliary ductal dilatation. No findings to suggest acute cholecystitis. Hypoechoic structure in the pancreatic head may correspond with the prominent peripancreatic lymph node seen on CT of the abdomen. Bilateral pleural effusion. LFT were closely monitored and remained significantly elevated without obvious cause. Hepatitis panel was negative. HIV test was negative . EDWARD screen was negative. Patient undergone liver biopsy on October 04. Pathology report still pending. Abdominal MRI revealed normal liver contour, no focal hepatic signal abnormality. No intrahepatic or extrahepatic biliary dilatation. No gallstones or gallbladder sludge. Still i anasarca with subcutaneous edema, bilateral pleural effusion and small pericardial effusion. M MRCP sequences at that exam were not done, since patient refused to continue with the exam. Per GI specialist,patient had abnormal LFT with severe cholestatic disease pattern severe. Differential included drug-induced, possibly due to doxycycline; autoimmune not likely, given negative EDWARD screen; IgG4 associated cholangitis versus infiltrative/granulomatous disorder versus malignancy . Alpha-fetoprotein was within normal limits . Lipid panel revealed severely elevated total cholesterol 540 LDL over 600 . Ammonia 60.Patient started on lactulose . GI prophylaxis provided. Bowel regimen instituted. All nonvital medications were discontinued. AMA/ASMA along with viral pathology antibody and PCR, immunoglobulin essay all pending. MRI was repeated with Ativan. No biliary ductal dilatation identified. Bilateral pleural effusion again Light Truck Driver closely followed. Pulmonary toilet and supplemental oxygen were on board as needed. According to rug sample beveler, bilateral pleural effusion were in setting of acute congestive heart failure along with liver disease. He recommended continue diuresis and further workup for liver disease. DVT prophylaxis provided. Aspiration precautions maintained. Psychiatrist seen and evaluated patient. Psychiatrist diagnosed patient with major depressive disorder and anxiety disorder. Psychiatric medication regimen was optimized. Reality orientation and supportive therapy provided. Pain management was addressed and controlled . Pain specialist closely followed. On 10/09 patient decided to sign AGAINST MEDICAL ADVICE. The risks and consequences of signing AGAINST MEDICAL ADVICE were discussed with patient in detail. Patient verbalized understanding, nevertheless signed AMA form and left. FINAL DIAGNOSES: Acute CHF exacerbation Transaminitis New-onset of diabetes mellitus type 2 UTI with Escherichia coli, Enterobacter and enterococci Mary groin rash Hypertensive heart disease status post ultrasound-guided liver biopsy Major depressive disorder Anxiety disorder I have been assigned to dictate discharge summary for this account. I was not involved in the patient's management. Stella Apodaca NP Oct 10, 2017 10:28
== END 2017-10-09 16:57 | disposition left against medical advice (07) | DRG 194 ==
LOC: EMR 20:59 → 2E 23:24 → EDBEDREQ 23:47 → 2E 10-04 01:37
PROC: 0FB23ZX Excision of Left Lobe Liver, Percutaneous Approach, Diagnostic (ICD-10-PCS; principal; 2017-10-05)
DX: I11.0 Hypertensive heart disease with heart failure (principal); I42.9 Cardiomyopathy, unspecified; E88.09 Other disorders of plasma-protein metabolism, not elsewhere classified; B37.2 Candidiasis of skin and nail; B95.2 Enterococcus as the cause of diseases classified elsewhere; E11.9 Type 2 diabetes mellitus without complications; I50.9 Heart failure, unspecified; N39.0 Urinary tract infection, site not specified; B96.20 Unspecified Escherichia coli [E. coli] as the cause of diseases classified elsewhere; B96.89 Other specified bacterial agents as the cause of diseases classified elsewhere; R74.0 Nonspecific elevation of levels of transaminase and lactic acid dehydrogenase [LDH]; F32.9 Major depressive disorder, single episode, unspecified; F41.9 Anxiety disorder, unspecified; M79.7 Fibromyalgia; G47.00 Insomnia, unspecified; Z87.891 Personal history of nicotine dependence; I34.0 Nonrheumatic mitral (valve) insufficiency
CPT/HCPCS: 36415; 71045; 74177; 74181; 74183; 76700; 76942; 80048; 80053; 80061; 80076; 80307; 81001; 82105; 82140; 82248; 82378; 82607; 82784; 82787; 82962; 82977; 83036; 83615; 83735; 83880; 83930; 84100; 84443; 84484; 84550; 85025; 85610; 85730; 86039; 86140; 86225; 86235; 86256; 86308; 86663; 86664; 86703; 86705; 86709; 86803; 87086; 87181; 87340; 87497; 93005; 93306; 99285; A9585; J1815; J8499; S5561

== ENCOUNTER 2017-10-11 14:35 | Inpatient (IN) | payer MEDICAID ==
[~2017-10-11] VITALS: Ht 162.6 cm; Wt 72.6 kg
--- NOTE | 2017-10-11 16:01 | Emergency Room Report ---
History of Present Illness General Chief Complaint: Generalized Weakness Source: Patient, Medical Record Present Illness HPI Patient was discharged 2 days ago from the hospital. She had rising transaminases at that time. She had anxiety and felt that she had to leave. She's not been doing well. She has difficulty ambulating at this time with bilateral leg weakness. All she has swelling in her legs. Her urine has been dark in color and her stools have been beige. She denies any fevers or chills. Her appetite has been poor but she denies vomiting or hematemesis. She denies dysuria also. The etiology of her elevated LFTs is unclear. Review of labs reveal + EBV titers. She had a biopsy while she was hospitalized. Some bruising. No confusion. No headaches. No itching skin. No chest pain or cough. She not anxious at this time. Allergies: Coded Allergies: No Known Allergies (Unverified , 10/07/17) Patient History Past Medical History: see triage record Social History: Denies: alcohol use Social History Narrative born in [place] Reviewed Nursing Documentation: PMH: Agreed; PSxH: Agreed Nursing Documentation-PMH Past Medical History: No History, Except For Hx Diabetes: Yes Review of Systems All Other Systems: negative except mentioned in HPI Physical Exam Vital Signs Date Time Temp Pulse Resp B/P (MAP) Pulse Ox O2 Delivery O2 Flow Rate FiO2 10/11/17 14:38 98.1 81 18 169/76 92 Room Air 98.1 Sp02 EP Interpretation: reviewed, normal General Appearance: well appearing, no apparent distress, GCS 15 Head: normocephalic, atraumatic Eyes: bilateral eye PERRL, bilateral eye scleral icterus ENT: moist mucus membranes Neck: supple Respiratory: lungs clear, normal breath sounds Cardiovascular #1: regular rate, rhythm Cardiovascular #2: 2+ radial (R); 3+ femoral (R) Gastrointestinal: normal inspection, normal bowel sounds, non tender, no mass, other - hard to size liver. No ascites Genitourinary: no CVA tenderness Musculoskeletal: back normal, gait/station normal, normal range of motion Neurologic: alert, oriented x3, motor strength/tone normal, DTRs symmetric, sensory intact, normal gait, other - No asterixis Psychiatric: mood/affect normal - concerned Skin: warm/dry, other - bruising Medical Decision Making Diagnostic Impression: Primary Impression: Hepatitis Additional Impressions: Hyponatremia Hyperglycemia Hypokalemia Biliary obstruction ER Course Patient presents with weakness with a history of jaundice and rising transaminases. Differential includes electrolyte imbalance, hepatic encephalopathy, coagulopathy amongst others. The patient is having difficulty getting around at home. Evaluation will be with laboratory and chest x-ray with an EKG to exclude cardiac cause. The patient will be treated with Zofran and Pepcid IV. She is total body sodium excess at this time and so IV fluids will be judiciously given if needed. EKG no injury. CXR clear. Labs with elevate LFTs. Coags normal. Normal ammonia. Normal WBC and H/H. Low sodium and potassium. Complex patient with weakness and electrolyte abnormalities, admit med, Dr. Barone. Dr. Cordova covering. Discussion with Dr. Alexander regarding need for higher level due to etiology of liver disease. Allegedly had biopsy which revealed complex disease needing value analysis coordinator. (Primary biliary obstruction) Discussed with Dr. Desai who will work to transfer to [facility] tomorrow. Laboratory Tests Test 10/11/17 16:20 10/11/17 18:06 White Blood Count 9.6 K/UL (4.8-10.8) Red Blood Count 4.37 M/UL (4.20-5.40) Hemoglobin 14.3 G/DL (12.0-16.0) Hematocrit 42.1 % (37.0-47.0) Mean Corpuscular Volume 96 FL (80-99) Mean Corpuscular Hemoglobin 32.6 PG (27.0-31.0) H Mean Corpuscular Hemoglobin Concent 33.9 G/DL (32.0-36.0) Red Cell Distribution Width 14.8 % (11.6-14.8) Platelet Count 223 K/UL (150-450) Mean Platelet Volume 8.4 FL (6.5-10.1) Neutrophils (%) (Auto) 67.5 % (45.0-75.0) Lymphocytes (%) (Auto) 21.9 % (20.0-45.0) Monocytes (%) (Auto) 8.5 % (1.0-10.0) Eosinophils (%) (Auto) 0.7 % (0.0-3.0) Basophils (%) (Auto) 1.4 % (0.0-2.0) Prothrombin Time 10.7 SEC (9.30-11.50) Prothrombin Time INR 1.0 (0.9-1.1) PTT 29 SEC (23-33) Sodium Level 130 MMOL/L (136-145) L Potassium Level 3.3 MMOL/L (3.5-5.1) L Chloride Level 97 MMOL/L (98-107) L Carbon Dioxide Level 27 MMOL/L (21-32) Anion Gap 7 mmol/L (5-15) Blood Urea Nitrogen 12 mg/dL (7-18) Creatinine 0.3 MG/DL (0.55-1.30) L Estimate Glomerular Filtration Rate > 60 mL/min (>60) Glucose Level 233 MG/DL (74-106) H Calcium Level 8.7 MG/DL (8.5-10.1) Total Bilirubin 18.2 MG/DL (0.2-1.0) H Direct Bilirubin 14.9 MG/DL (0.0-0.3) H Aspartate Amino Transferase (AST) 86 U/L (15-37) H Alanine Aminotransferase (ALT) 165 U/L (12-78) H Alkaline Phosphatase 1051 U/L (46-116) H Ammonia 45 umol/L (11-32) H Total Protein 5.8 G/DL (6.4-8.2) L Albumin 1.8 G/DL (3.4-5.0) L Globulin 4.0 g/dL Albumin/Globulin Ratio 0.4 (1.0-2.7) L Lipase 75 U/L (73-393) Urine Color Brown Urine Appearance Slightly cloudy Urine pH 6 (4.5-8.0) Urine Specific [place] 1.015 (1.005-1.035) Urine Protein 2+ (NEGATIVE) H Urine Glucose (UA) 1+ (NEGATIVE) H Urine Ketones Negative (NEGATIVE) Urine Blood 2+ (NEGATIVE) H Urine Nitrite Negative (NEGATIVE) Urine Bilirubin 3+ (NEGATIVE) H Urine Ictotest Positive (NEGATIVE) Urine Urobilinogen 8 MG/DL (0.0-1.0) H Urine Leukocyte Esterase 1+ (NEGATIVE) H Urine RBC 0-2 /HPF (0 - 2) Urine WBC 0-2 /HPF (0 - 2) Urine Squamous Epithelial Cells Few /LPF (NONE/OCC) Urine Bacteria Moderate /HPF (NONE) H Urine Yeast Occasional /HPF (NONE) H EKG Diagnostic Results Rate: normal Rhythm: NSR ST Segments: no acute changes Rhythm Strip Diag. Results EP Interpretation: yes Rhythm: NSR, no PVC's, no ectopy Chest X-Ray Diagnostic Results Chest X-Ray Diagnostic Results : Chest X-Ray Ordered: Yes # of Views/Limited/Complete: 1 View Indication: Other Interpretation: no consolidation, no effusion, no pneumothorax, other - suspect pleural effusions Impression: Other Electronically Signed by: Bon Aldana MD Last Vital Signs Date Time Temp Pulse Resp B/P (MAP) Pulse Ox O2 Delivery O2 Flow Rate FiO2 10/11/17 19:48 97.9 89 18 143/95 (111) 94 97.9 10/11/17 19:46 Room Air Status: improved Disposition: ADMITTED INPATIENT Condition: Serious Bon Aldana M.D. Oct 11, 2017 16:01
[2017-10-11] MEDS ORDERED: UNOBMED (16:10)
--- NOTE | 2017-10-11 16:31 | Diagnostic Imaging Report ---
Indication: Dyspnea Comparison: 10/07/2017 A single view chest radiograph was obtained. Findings: Cardiomegaly with mild pulmonary vascular congestion again demonstrated. Suspected bilateral pleural effusions. Findings are unchanged. IMPRESSION: Suspected mild CHF
[2017-10-11 16:40] LABS: BASOPHILS % (AUTO) 1.4 % (0.0-2.0); EOSINOPHILS % (AUTO) 0.7 % (0.0-3.0); HEMATOCRIT 42.1 % (37.0-47.0); HEMOGLOBIN 14.3 G/DL (12.0-16.0); LYMPHOCYTES % (AUTO) 21.9 % (20.0-45.0); MEAN CORPUSCULAR VOLUME 96 FL (80-99); MONOCYTES % (AUTO) 8.5 % (1.0-10.0); NEUTROPHILS % (AUTO) 67.5 % (45.0-75.0); PLATELET COUNT 223 K/UL (150-450); RED BLOOD COUNT 4.37 M/UL (4.20-5.40); RED CELL DISTRIBUTION WIDTH 14.8 % (11.6-14.8); WHITE BLOOD COUNT 9.6 K/UL (4.8-10.8)
[2017-10-11 16:51] LABS: ANION GAP 7 mmol/L (5-15); BLOOD UREA NITROGEN 12 mg/dL (7-18); CALCIUM 8.7 MG/DL (8.5-10.1); CARBON DIOXIDE 27 MMOL/L (21-32); CHLORIDE 97 MMOL/L (98-107); CREATININE 0.3 MG/DL (0.55-1.30); POTASSIUM 3.3 MMOL/L (3.5-5.1); SODIUM 130 MMOL/L (136-145)
[2017-10-11 16:53] LABS: AMMONIA 45 umol/L (11-32)
[2017-10-11 17:04] LABS: ALANINE AMINOTRANSFERASE 165 U/L (12-78); ALBUMIN 1.8 G/DL (3.4-5.0); ALBUMIN/GLOBULIN RATIO 0.4 (1.0-2.7); ALKALINE PHOSPHATASE 1051 U/L (46-116); ASPARTATE AMINO TRANSFERASE 86 U/L (15-37); BILIRUBIN,TOTAL 18.2 MG/DL (0.2-1.0)
[2017-10-11 17:13] LABS: BILIRUBIN,DIRECT 14.9 MG/DL (0.0-0.3)
[2017-10-11 17:49] VITALS: BP 156/78
[2017-10-11 18:36] LABS: APPEARANCE,URINE SLIGHTLY CLOUDY; BILIRUBIN, URINE 3+ (NEGATIVE); COLOR,URINE BROWN; GLUCOSE, URINE (UA) 1+ (NEGATIVE); KETONES,URINE NEGATIVE (NEGATIVE); LEUKOCYTE ESTERASE ,URINE 1+ (NEGATIVE); NITRITE,URINE NEGATIVE (NEGATIVE); PH,URINE 6 (4.5-8.0); PROTEIN,URINE 2+ (NEGATIVE); UROBILINOGEN,URINE 8 MG/DL (0.0-1.0)
[2017-10-11 19:48] VITALS: BP 143/95
[2017-10-11] MEDS ORDERED: Mylanta II UD 30ml ORAL PRN (21:45)
[2017-10-11] MEDS ORDERED: LORazepam Inj 2mg/ml 1ml IV PRN (21:45)
[2017-10-11] MEDS ORDERED: Miralax 17gm pkt ORAL PRN (21:45)
[2017-10-11] MEDS ORDERED: Morphine Sulfate 2mg/ml Inj IVP PRN (21:45)
[2017-10-11] MEDS: Zolpidem 5mg tab ORAL PRN (22:26)
[2017-10-12 04:01] VITALS: BP 149/79
[2017-10-12] MEDS ORDERED: NovoLOG Insulin Flexpen SUBQ SCH (06:30)
[2017-10-12 06:39] LABS: BASOPHILS % (AUTO) 1.2 % (0.0-2.0); EOSINOPHILS % (AUTO) 0.7 % (0.0-3.0); HEMATOCRIT 44.6 % (37.0-47.0); HEMOGLOBIN 14.2 G/DL (12.0-16.0); MEAN CORPUSCULAR VOLUME 97 FL (80-99); MONOCYTES % (AUTO) 12.6 % (1.0-10.0); NEUTROPHILS % (AUTO) 60.5 % (45.0-75.0); PLATELET COUNT 235 K/UL (150-450); RED BLOOD COUNT 4.61 M/UL (4.20-5.40); RED CELL DISTRIBUTION WIDTH 14.8 % (11.6-14.8); WHITE BLOOD COUNT 8.2 K/UL (4.8-10.8)
[2017-10-12 07:07] LABS: ALANINE AMINOTRANSFERASE 161 U/L (12-78); ALBUMIN 1.8 G/DL (3.4-5.0); ALBUMIN/GLOBULIN RATIO 0.5 (1.0-2.7); ALKALINE PHOSPHATASE 977 U/L (46-116); ANION GAP 4 mmol/L (5-15); ASPARTATE AMINO TRANSFERASE 81 U/L (15-37); BILIRUBIN,TOTAL 17.8 MG/DL (0.2-1.0); BLOOD UREA NITROGEN 10 mg/dL (7-18); CALCIUM 8.7 MG/DL (8.5-10.1); CARBON DIOXIDE 29 MMOL/L (21-32); CHLORIDE 97 MMOL/L (98-107); CHOLESTEROL 527 MG/DL (< 200); CREATININE 0.4 MG/DL (0.55-1.30); HDL CHOLESTEROL 11 MG/DL (40-60); POTASSIUM 3.5 MMOL/L (3.5-5.1); SODIUM 130 MMOL/L (136-145); TRIGLYCERIDES 263 MG/DL (30-150)
[2017-10-12 07:09] LABS: BILIRUBIN,DIRECT 14.5 MG/DL (0.0-0.3)
[2017-10-12 08:16] VITALS: BP 156/90
--- NOTE | 2017-10-12 09:38 | Consultation ---
Consult Note Consult Note # [id number] Eugenio Bee MD Oct 12, 2017 09:38
[2017-10-12] MEDS: Levofloxacin 500mg tab ORAL SCH (11:42)
[2017-10-12 11:43] VITALS: BP 153/88
[2017-10-12] MEDS: NovoLOG Insulin Flexpen SUBQ SCH ×3 (11:45→20:35)
--- NOTE | 2017-10-12 12:55 | GI Initial Consult Note ---
History of Present Illness General Date patient seen: Oct 12, 2017 Reason for Hospitalization: Generalized Weakness Referring physician: PINA GONZALEZ Reason for Consultation: LIVER DISEASE Present Illness HPI Patient is discharged 2 days ago from the hospital. She had rising transaminases at that time. She had a veneer department manager and felt that she had to leave. She 's not been doing well. She has difficulty ambulating at this time with bilateral leg weakness. All she has swelling in her legs. Her urine has been dark in color and her stools have been beige. She denies any fevers or chills. Her appetite is been poor but she denies vomiting or hematemesis. She denies dysuria also. The etiology of her elevated LFTs is unclear. Review of labs reveal + EBV titers. GI consulted for liver disease. Pt seen on floor, awake A&Ox4 NAD with no active s/sx of N/V/D. Ambulating, NAD with no complaint of abdominal pain, weakness, N/V/D or constipation. Patient left AMA here last week. Was admitted for jaundice and LFTs from unknown etiology in which a liver biopsy was obtain. Pathology unclear of etiology, possible ANCA vs small duct PSC vs drug induced. Per GI specialist,patient had abnormal LFT with severe cholestatic disease pattern severe. Differential included drug-induced, possibly due to doxycycline; autoimmune not likely, given negative EDWARD screen ; IgG4 associated cholangitis versus infiltrative/granulomatous disorder versus malignancy . Home Meds Reported Medications Unable to Obtain Medications (UNABLE TO OBTAIN MEDS) 1 Ea Ea 10/11/17 Med list reviewed/reconciled: Yes Allergies: Coded Allergies: No Known Allergies (Unverified , 10/07/17) Patient History Past Medical History: liver disease PMH Narrative Past Medical History: see triage record Social History: Denies: alcohol use Social History Narrative born in [place] Reviewed Nursing Documentation: PMH: Agreed; PSxH: Agreed Nursing Documentation-PMH Past Medical History: No History, Except For Hx Diabetes: Yes Social History: Denies: smoking, alcohol use, drug use, other Review of Systems All Other Systems: negative except mentioned in HPI Physical Exam Vital Signs Date Time Temp Pulse Resp B/P (MAP) Pulse Ox O2 Delivery O2 Flow Rate FiO2 10/11/17 14:38 98.1 81 18 169/76 92 Room Air 98.1 Sp02 EP Interpretation: reviewed, normal Labs Laboratory Tests Test 10/11/17 16:20 10/11/17 18:06 10/12/17 05:40 10/12/17 11:40 White Blood Count 9.6 K/UL (4.8-10.8) 8.2 K/UL (4.8-10.8) Red Blood Count 4.37 M/UL (4.20-5.40) 4.61 M/UL (4.20-5.40) Hemoglobin 14.3 G/DL (12.0-16.0) 14.2 G/DL (12.0-16.0) Hematocrit 42.1 % (37.0-47.0) 44.6 % (37.0-47.0) Mean Corpuscular Volume 96 FL (80-99) 97 FL (80-99) Mean Corpuscular Hemoglobin 32.6 PG (27.0-31.0) H 30.8 PG (27.0-31.0) Mean Corpuscular Hemoglobin Concent 33.9 G/DL (32.0-36.0) 31.8 G/DL (32.0-36.0) L Red Cell Distribution Width 14.8 % (11.6-14.8) 14.8 % (11.6-14.8) Platelet Count 223 K/UL (150-450) 235 K/UL (150-450) Mean Platelet Volume 8.4 FL (6.5-10.1) 9.0 FL (6.5-10.1) Neutrophils (%) (Auto) 67.5 % (45.0-75.0) 60.5 % (45.0-75.0) Lymphocytes (%) (Auto) 21.9 % (20.0-45.0) 25.0 % (20.0-45.0) Monocytes (%) (Auto) 8.5 % (1.0-10.0) 12.6 % (1.0-10.0) H Eosinophils (%) (Auto) 0.7 % (0.0-3.0) 0.7 % (0.0-3.0) Basophils (%) (Auto) 1.4 % (0.0-2.0) 1.2 % (0.0-2.0) Prothrombin Time 10.7 SEC (9.30-11.50) Prothromb Time International Ratio 1.0 (0.9-1.1) Activated Partial Thromboplast Time 29 SEC (23-33) Sodium Level 130 MMOL/L (136-145) L 130 MMOL/L (136-145) L Potassium Level 3.3 MMOL/L (3.5-5.1) L 3.5 MMOL/L (3.5-5.1) Chloride Level 97 MMOL/L (98-107) L 97 MMOL/L (98-107) L Carbon Dioxide Level 27 MMOL/L (21-32) 29 MMOL/L (21-32) Anion Gap 7 mmol/L (5-15) 4 mmol/L (5-15) L Blood Urea Nitrogen 12 mg/dL (7-18) 10 mg/dL (7-18) Creatinine 0.3 MG/DL (0.55-1.30) L 0.4 MG/DL (0.55-1.30) L Estimat Glomerular Filtration Rate > 60 mL/min (>60) > 60 mL/min (>60) Glucose Level 233 MG/DL (74-106) H 281 MG/DL (74-106) H Calcium Level 8.7 MG/DL (8.5-10.1) 8.7 MG/DL (8.5-10.1) Total Bilirubin 18.2 MG/DL (0.2-1.0) H 17.8 MG/DL (0.2-1.0) H Direct Bilirubin 14.9 MG/DL (0.0-0.3) H 14.5 MG/DL (0.0-0.3) H Aspartate Amino Transf (AST/SGOT) 86 U/L (15-37) H 81 U/L (15-37) H Alanine Aminotransferase (ALT/SGPT) 165 U/L (12-78) H 161 U/L (12-78) H Alkaline Phosphatase 1051 U/L (46-116) H 977 U/L (46-116) H Ammonia 45 umol/L (11-32) H Total Protein 5.8 G/DL (6.4-8.2) L 5.7 G/DL (6.4-8.2) L Albumin 1.8 G/DL (3.4-5.0) L 1.8 G/DL (3.4-5.0) L Globulin 4.0 g/dL 3.9 g/dL Albumin/Globulin Ratio 0.4 (1.0-2.7) L 0.5 (1.0-2.7) L Lipase 75 U/L (73-393) Urine Color Brown Urine Appearance Slightly cloudy Urine pH 6 (4.5-8.0) Urine Specific [place] 1.015 (1.005-1.035) Urine Protein 2+ (NEGATIVE) H Urine Glucose (UA) 1+ (NEGATIVE) H Urine Ketones Negative (NEGATIVE) Urine Blood 2+ (NEGATIVE) H Urine Nitrite Negative (NEGATIVE) Urine Bilirubin 3+ (NEGATIVE) H Urine Ictotest Positive (NEGATIVE) Urine Urobilinogen 8 MG/DL (0.0-1.0) H Urine Leukocyte Esterase 1+ (NEGATIVE) H Urine RBC 0-2 /HPF (0 - 2) Urine WBC 0-2 /HPF (0 - 2) Urine Squamous Epithelial Cells Few /LPF (NONE/OCC) Urine Bacteria Moderate /HPF (NONE) H Urine Yeast Occasional /HPF (NONE) H Triglycerides Level 263 MG/DL (30-150) H Cholesterol Level 527 MG/DL (< 200) H LDL Cholesterol > 600 mg/dL (<100) H HDL Cholesterol 11 MG/DL (40-60) L Cholesterol/HDL Ratio 47.9 (3.3-4.4) H Thyroid Stimulating Hormone (TSH) 1.367 uiU/mL (0.358-3.740) Hepatitis A IgM Antibody Pending Hepatitis B Surface Antigen Pending Hepatitis B Core IgM Antibody Pending Hepatitis Be Antibody Pending Hepatitis C Antibody Pending Hepatitis C RNA (PCR) IUs/ml Pending Hepatitis C RNA (PCR) log IUs/ml Pending General Appearance: well appearing, no apparent distress, alert Head: normocephalic EENT: PERRL/EOMI, normal ENT inspection Neck: supple Respiratory: normal breath sounds, no respiratory distress Cardiovascular: normal rate Gastrointestinal: normal inspection, non tender, soft, normal bowel sounds, non -distended Rectal: deferred Genitourinary: no CVA tenderness Musculoskeletal: normal inspection, back normal Neurologic: normal inspection, alert, oriented x3, responsive Psychiatric: normal inspection, judgement/insight normal, memory normal Skin: normal inspection, normal color, no rash, warm/dry, palpation normal, well hydrated Lymphatic: normal inspection, no adenopathy Current Medications Current Medications Medications (Trade) Dose Ordered Sig/Dutch Route PRN Reason Start Time Stop Time Status Last Admin Dose Admin Acetaminophen (Tylenol) 650 mg Q4H PRN ORAL fever 10/11/17 21:36 11/10/17 21:35 Al Hydroxide/Mg Hydroxide (Mylanta II) 30 ml Q6H PRN ORAL dyspepsia 10/11/17 21:45 11/10/17 21:44 Dextrose (Dextrose 50%) 25 ml PRN IV Hypoglycemia 10/11/17 21:45 11/10/17 21:44 Dextrose (Dextrose 50%) 50 ml PRN IV hypoglycemia 10/11/17 21:45 11/10/17 21:44 Insulin Aspart (NovoLOG) BEFORE MEALS AND HS SUBQ 10/12/17 11:30 11/11/17 11:29 10/12/17 11:45 Ketoconazole (Nizoral 2% Cream) 1 applic DAILY TOPIC 10/12/17 12:00 11/11/17 11:59 Levofloxacin (Levaquin) 500 mg DAILY ORAL 10/12/17 11:15 10/19/17 11:14 10/12/17 11:42 Lorazepam (Ativan 2mg/ml 1ml) 0.5 mg Q4H PRN IV For Anxiety 10/11/17 21:45 10/18/17 21:44 Morphine Sulfate (Morphine Sulfate) 1 mg Q4H PRN IVP For Pain 10/11/17 21:45 10/18/17 21:44 10/11/17 22:27 Ondansetron HCl (Zofran) 4 mg Q6H PRN IVP Nausea & Vomiting 10/11/17 21:45 11/10/17 21:44 Polyethylene Glycol (Miralax) 17 gm HSPRN PRN ORAL Constipation 10/11/17 21:45 11/10/17 21:44 Prednisone (predniSONE) 40 mg DAILY ORAL 10/13/17 09:00 11/12/17 08:59 Prednisone (predniSONE) 40 mg ONCE ORAL 10/12/17 12:30 10/12/17 13:30 Ursodiol (Actigall) 300 mg TWICE A DAY ORAL 10/12/17 18:00 11/11/17 17:59 Zolpidem Tartrate (Ambien) 5 mg HSPRN PRN ORAL Insomnia 10/11/17 21:45 10/18/17 21:44 10/11/17 22:26 GI: Plan Problems: (1) Biliary obstruction (2) Jaundice (3) LFT elevation (4) Hepatitis Plan severe cholestatic disease pattern >> Differential included drug-induced, possibly due to doxycycline; autoimmune not likely, given negative EDWARD screen ; IgG4 associated cholangitis versus infiltrative/granulomatous disorder versus malignancy . Patient requires higher level of care >> pending transfer to [facility]. start prednisone 40mg daily start ursodiol pain mgmt zofran prn trend LFTs will follow with additional recs Discussed with Dr. Desai. Thank you for this patient referral, we will follow. The patient was seen and examined at bedside and all new and available data was reviewed in the patients chart. I agree with the above findings, impression and plan. (Patient seen earlier today. Signature stamp does not reflect patient encounter time.). - MD [facility] [employer] AND HAIRS[employer]ING ASSEMBLER Oct 12, 2017 12:55
--- NOTE | 2017-10-12 13:28 | Consultation ---
History of Present Illness General Date patient seen: Oct 12, 2017 Chief Complaint: Generalized Weakness Present Illness HPI 62 yo with depression and hepatic failure who left [facility] 2 days is returned. the pt is depressed and not suicidal she was started on antidepressant however the medication was discontinued by Dr. Ruff. the pt may not leave [facility]. Allergies: Coded Allergies: No Known Allergies (Unverified , 10/07/17) Medication History Miscellaneous Medications Unable to Obtain Medications (Unable To Obtain Meds), (Reported) Patient History History Provided By: Patient, Medical Record, PMD Healthcare decision maker Resuscitation status Full Code Advanced Directive on File Past Medical/Surgical History Past Medical/Surgical History: (1) Jaundice (2) LFT elevation (3) Biliary obstruction (4) Hypokalemia (5) Hepatitis (6) Hyperglycemia (7) Hyponatremia Review of Systems Psychiatric: Reports: anxiety, depressed feelings Physical Exam General Appearance: no apparent distress, alert Neurologic: oriented x 3, responsive, depressed affect Last 24 Hour Vital Signs Date Time Temp Pulse Resp B/P (MAP) Pulse Ox O2 Delivery O2 Flow Rate FiO2 10/12/17 11:43 97.8 86 20 153/88 (109) 96 97.8 10/12/17 08:51 Room Air 10/12/17 08:16 98.4 89 20 156/90 (112) 95 98.4 10/12/17 04:01 97.7 92 16 149/79 (102) 93 97.7 10/11/17 19:48 97.9 89 18 143/95 (111) 94 97.9 10/11/17 19:46 Room Air 10/11/17 18:00 98.1 85 18 156/78 96 Room Air 98.1 10/11/17 17:49 98.1 89 18 156/78 96 Room Air 98.1 10/11/17 14:38 98.1 81 18 169/76 92 Room Air 98.1 Intake and Output 10/11/17 10/12/17 19:00 07:00 Intake Total 0 ml Balance 0 ml Intake Oral 0 ml # Voids 3 Laboratory Tests Test 10/11/17 16:20 10/11/17 18:06 10/12/17 05:40 10/12/17 11:40 White Blood Count 9.6 K/UL (4.8-10.8) 8.2 K/UL (4.8-10.8) Red Blood Count 4.37 M/UL (4.20-5.40) 4.61 M/UL (4.20-5.40) Hemoglobin 14.3 G/DL (12.0-16.0) 14.2 G/DL (12.0-16.0) Hematocrit 42.1 % (37.0-47.0) 44.6 % (37.0-47.0) Mean Corpuscular Volume 96 FL (80-99) 97 FL (80-99) Mean Corpuscular Hemoglobin 32.6 PG (27.0-31.0) H 30.8 PG (27.0-31.0) Mean Corpuscular Hemoglobin Concent 33.9 G/DL (32.0-36.0) 31.8 G/DL (32.0-36.0) L Red Cell Distribution Width 14.8 % (11.6-14.8) 14.8 % (11.6-14.8) Platelet Count 223 K/UL (150-450) 235 K/UL (150-450) Mean Platelet Volume 8.4 FL (6.5-10.1) 9.0 FL (6.5-10.1) Neutrophils (%) (Auto) 67.5 % (45.0-75.0) 60.5 % (45.0-75.0) Lymphocytes (%) (Auto) 21.9 % (20.0-45.0) 25.0 % (20.0-45.0) Monocytes (%) (Auto) 8.5 % (1.0-10.0) 12.6 % (1.0-10.0) H Eosinophils (%) (Auto) 0.7 % (0.0-3.0) 0.7 % (0.0-3.0) Basophils (%) (Auto) 1.4 % (0.0-2.0) 1.2 % (0.0-2.0) Prothrombin Time 10.7 SEC (9.30-11.50) Prothromb Time International Ratio 1.0 (0.9-1.1) Activated Partial Thromboplast Time 29 SEC (23-33) Sodium Level 130 MMOL/L (136-145) L 130 MMOL/L (136-145) L Potassium Level 3.3 MMOL/L (3.5-5.1) L 3.5 MMOL/L (3.5-5.1) Chloride Level 97 MMOL/L (98-107) L 97 MMOL/L (98-107) L Carbon Dioxide Level 27 MMOL/L (21-32) 29 MMOL/L (21-32) Anion Gap 7 mmol/L (5-15) 4 mmol/L (5-15) L Blood Urea Nitrogen 12 mg/dL (7-18) 10 mg/dL (7-18) Creatinine 0.3 MG/DL (0.55-1.30) L 0.4 MG/DL (0.55-1.30) L Estimat Glomerular Filtration Rate > 60 mL/min (>60) > 60 mL/min (>60) Glucose Level 233 MG/DL (74-106) H 281 MG/DL (74-106) H Calcium Level 8.7 MG/DL (8.5-10.1) 8.7 MG/DL (8.5-10.1) Total Bilirubin 18.2 MG/DL (0.2-1.0) H 17.8 MG/DL (0.2-1.0) H Direct Bilirubin 14.9 MG/DL (0.0-0.3) H 14.5 MG/DL (0.0-0.3) H Aspartate Amino Transf (AST/SGOT) 86 U/L (15-37) H 81 U/L (15-37) H Alanine Aminotransferase (ALT/SGPT) 165 U/L (12-78) H 161 U/L (12-78) H Alkaline Phosphatase 1051 U/L (46-116) H 977 U/L (46-116) H Ammonia 45 umol/L (11-32) H Total Protein 5.8 G/DL (6.4-8.2) L 5.7 G/DL (6.4-8.2) L Albumin 1.8 G/DL (3.4-5.0) L 1.8 G/DL (3.4-5.0) L Globulin 4.0 g/dL 3.9 g/dL Albumin/Globulin Ratio 0.4 (1.0-2.7) L 0.5 (1.0-2.7) L Lipase 75 U/L (73-393) Urine Color Brown Urine Appearance Slightly cloudy Urine pH 6 (4.5-8.0) Urine Specific [place] 1.015 (1.005-1.035) Urine Protein 2+ (NEGATIVE) H Urine Glucose (UA) 1+ (NEGATIVE) H Urine Ketones Negative (NEGATIVE) Urine Blood 2+ (NEGATIVE) H Urine Nitrite Negative (NEGATIVE) Urine Bilirubin 3+ (NEGATIVE) H Urine Ictotest Positive (NEGATIVE) Urine Urobilinogen 8 MG/DL (0.0-1.0) H Urine Leukocyte Esterase 1+ (NEGATIVE) H Urine RBC 0-2 /HPF (0 - 2) Urine WBC 0-2 /HPF (0 - 2) Urine Squamous Epithelial Cells Few /LPF (NONE/OCC) Urine Bacteria Moderate /HPF (NONE) H Urine Yeast Occasional /HPF (NONE) H Triglycerides Level 263 MG/DL (30-150) H Cholesterol Level 527 MG/DL (< 200) H LDL Cholesterol > 600 mg/dL (<100) H HDL Cholesterol 11 MG/DL (40-60) L Cholesterol/HDL Ratio 47.9 (3.3-4.4) H Thyroid Stimulating Hormone (TSH) 1.367 uiU/mL (0.358-3.740) Hepatitis A IgM Antibody Pending Hepatitis B Surface Antigen Pending Hepatitis B Core IgM Antibody Pending Hepatitis Be Antibody Pending Hepatitis C Antibody Pending Hepatitis C RNA (PCR) IUs/ml Pending Hepatitis C RNA (PCR) log IUs/ml Pending Microbiology Date/Time Source Procedure Growth Status 10/11/17 18:06 Urine,Clean Catch Urine Culture - Preliminary Gram Negative Bacillus 1 Resulted Height (Feet): 5 Height (Inches): 4.00 Weight (Pounds): 160 Medications Current Medications Medications (Trade) Dose Ordered Sig/Dutch Route PRN Reason Start Time Stop Time Status Last Admin Dose Admin Acetaminophen (Tylenol) 650 mg Q4H PRN ORAL fever 10/11/17 21:36 11/10/17 21:35 Al Hydroxide/Mg Hydroxide (Mylanta II) 30 ml Q6H PRN ORAL dyspepsia 10/11/17 21:45 11/10/17 21:44 Dextrose (Dextrose 50%) 25 ml PRN IV Hypoglycemia 10/11/17 21:45 11/10/17 21:44 Dextrose (Dextrose 50%) 50 ml PRN IV hypoglycemia 10/11/17 21:45 11/10/17 21:44 Insulin Aspart (NovoLOG) BEFORE MEALS AND HS SUBQ 10/12/17 11:30 11/11/17 11:29 10/12/17 11:45 Ketoconazole (Nizoral 2% Cream) 1 applic DAILY TOPIC 10/12/17 12:00 11/11/17 11:59 10/12/17 13:20 Levofloxacin (Levaquin) 500 mg DAILY ORAL 10/12/17 11:15 10/19/17 11:14 10/12/17 11:42 Lorazepam (Ativan 2mg/ml 1ml) 0.5 mg Q4H PRN IV For Anxiety 10/11/17 21:45 10/18/17 21:44 Morphine Sulfate (Morphine Sulfate) 1 mg Q4H PRN IVP For Pain 10/11/17 21:45 10/18/17 21:44 10/11/17 22:27 Ondansetron HCl (Zofran) 4 mg Q6H PRN IVP Nausea & Vomiting 10/11/17 21:45 11/10/17 21:44 Polyethylene Glycol (Miralax) 17 gm HSPRN PRN ORAL Constipation 10/11/17 21:45 11/10/17 21:44 Prednisone (predniSONE) 40 mg DAILY ORAL 10/13/17 09:00 11/12/17 08:59 Prednisone (predniSONE) 40 mg ONCE ORAL 10/12/17 12:30 10/12/17 13:30 10/12/17 13:07 Ursodiol (Actigall) 300 mg TWICE A DAY ORAL 10/12/17 18:00 11/11/17 17:59 Zolpidem Tartrate (Ambien) 5 mg HSPRN PRN ORAL Insomnia 10/11/17 21:45 10/18/17 21:44 10/11/17 22:26 Assessment/Plan Assessment/Plan mdd anxiety -no meds at this time -the pt jenny not leave Rodrigo Ngo MD Oct 12, 2017 13:28
--- NOTE | 2017-10-12 13:56 | Diagnostic Imaging Report ---
APPROVED REPORT CPT Code: 07308 Present Symptoms Comments: SWELLING BILATERAL: Imaging reveals a patent deep venous system bilaterally. There is no evidence of thrombus within the femoral, popliteal or tibial segments. The greater saphenous veins are also within normal limits. Doppler indicates normal spontaneous flow within these segments.
[2017-10-12 15:55] VITALS: BP 187/101
[2017-10-12] MEDS: Ursodiol 300mg cap ORAL SCH (17:12)
[2017-10-12 18:30] VITALS: BP 147/77
[2017-10-12] MEDS: Zolpidem 5mg tab ORAL PRN (20:36)
--- NOTE | 2017-10-12 22:45 | Consultation ---
DATE OF CONSULTATION: 10/12/2017 INFECTIOUS DISEASE CONSULTATION CONSULTING PHYSICIAN: Eugenio Bee M.D. REQUESTING PHYSICIAN: Collin Cordova D.O. REASON FOR CONSULTATION: Evaluation of the patient for UTI, antibiotic management. HISTORY OF PRESENT ILLNESS: The patient is a 62-year-old female with multiple medical problems, who was admitted recently to this medical center because of the weakness. Apparently, the patient was given doxycycline prior to the previous admission. At the time of recent admission, the patient was found to have transaminitis and jaundice. The patient underwent a liver biopsy and the results did not show any specific etiology for the patient's obstructive pattern. The patient left AMA. At that time, the patient refused a complete MRCP. Now, the patient came back to the hospital with a chief complaint of dysuria and itchiness over the bilateral feet. The patient on previous admission was treated with Levaquin and dysuria resolved, however, the patient's dysuria has recurred. An Infectious Disease consultation has been requested for further evaluation of the patient. PAST MEDICAL HISTORY: 1. CHF. 2. History of . 3. History of recent cholestatic jaundice (question etiology), status post biopsy. 4. Diabetes. 5. Bilateral groin candidiasis. 6. History of recent urinary tract infection. MEDICATIONS: Currently is off of antibiotics. ALLERGIES: No known drug allergies. SOCIAL HISTORY: Ex-smoker. No history of alcohol or drug abuse. FAMILY HISTORY: Not contributing. PHYSICAL EXAMINATION: VITAL SIGNS: Temperature 98 degrees, pulse 86, respiratory rate 18, and blood pressure 156/90. HEENT: Jaundiced sclera. NECK: No lymphadenopathy. CHEST: Clear. HEART: S1 and S2. ABDOMEN: Soft. EXTREMITIES: The patient has athlete's feet and bilateral groin candidiasis. FLANK: No tenderness. NEUROLOGIC: Awake and alert. LABORATORY AND DIAGNOSTIC DATA: CBC unremarkable. UA unremarkable except moderate bacteria. BUN and creatinine normal. AST 81, ALT 151, and alkaline phosphatase 977. Total bilirubin 17. Direct bilirubin is 14.5. Lipase is unremarkable. negative. Hepatitis panel negative. HIV serology negative. Urine culture recently grew E. coli, Enterobacter and Enterococcus faecalis. Regarding workup, 1. Chest x-ray 10/11/2017, mild CHF. 2. MRI of the abdomen 10/09/2017, limited, no biliary ductal dilatation identified, bilateral effusion. 3. MRI of the abdomen 10/05/2017 showed contracted gallbladder, no gallstone. 4. Ultrasound of abdomen 10/04/2017, no focal hepatic mass, no cholelithiasis. ASSESSMENT: 1. Dysuria, probable urinary tract infection (despite of unremarkable UA). 2. Transaminitis, improving. 3. Cholestatic jaundice, ? etiology. 4. Afebrile. 5. Normal white blood cells. 6. HIV serology negative. 7. Bilateral athlete's feet/bilateral groin candidiasis. PLAN: 1. We will start the patient on Levaquin day #1. 2. Monitor CBC. 3. Monitor BMP. 4. Urine culture. 5. Repeat hepatitis serology. 6. Hepatitis C PCR. 7. We will start the patient on Nizoral cream to be applied to both feet and groins. 8. We will follow GI recommendations. Eugenio Bee M.D. DR: GILMA JOB#: [id number] CC:
--- NOTE | 2017-10-12 22:45 | History and Physical Report ---
DATE OF ADMISSION: 10/11/2017 APPROXIMATE TIME: 2 p.m. ATTENDING PHYSICIAN: Collin Cordova D.O. for Antonia Barone M.D. CONSULTANTS: 1. Eugenio Bee M.D. 2. Rama Alexander M.D. 3. Daniel Desai M.D. CHIEF COMPLAINT: Weakness, leg pain, hepatitis, and jaundice. BRIEF HISTORY: The patient is a 62-year-old female, who lives at home, recently discharged about a week, above-mentioned diagnoses, returned with increased leg pain, was found to have hepatitis, jaundice, and biliary obstruction and admitted to medical floor for further treatment. Currently, slightly anxious in bed, oriented x2, in no acute distress. REVIEW OF SYSTEMS: No chest pain. Slight short of breath. No nausea, vomiting, or diarrhea. PAST MEDICAL HISTORY: Anxiety and hepatitis. PAST SURGICAL HISTORY: Unknown. ALLERGIES: Denies. MEDICATIONS: Include prednisone, Actigall, NovoLog, Levaquin, morphine, MiraLAX, Zofran, Ambien, Mylanta, and Tylenol. SOCIAL HISTORY: No smoking. No alcohol. No intravenous drug abuse. FAMILY HISTORY: Noncontributory. PHYSICAL EXAMINATION: GENERAL: Calm, slightly anxious in bed, oriented x2, in no acute distress. VITAL SIGNS: Temperature is 97 degrees, pulse 86, respirations 20, and blood pressure 153/88. CARDIOVASCULAR: No murmur. LUNGS: Distant and clear. ABDOMEN: Bowel sound positive. Nontender, nondistended. EXTREMITIES: Showed no cyanosis, clubbing, or edema. NEUROLOGIC: The patient moves all extremities, slightly weak. LABORATORY DATA: Labs at this time show CBC is normal. BMP shows sodium 130, chloride 97, BUN and creatinine 10/0.4, and glucose 281. AST 81, ALT 161. Albumin 1.8. Cholesterol 527. Urinalysis, 1+ leukocyte esterase, 3+ bilirubin. ASSESSMENT: 1. Hepatitis. 2. Leg pain. 3. Renal insufficiency. 4. Jaundice. 5. . 6. Anxiety. PLAN: 1. Continue previous medications. 2. Resume home medications. 3. Pain control. 4. IV fluids. 5. Anxiolytics. 6. Dr. Alexander, Dr. Bee, Dr. Desai, Dr. Scanlon, and Dr. Mackenzie to evaluate. We will continue to follow the patient medically. 7. OT, PT, dietary evaluation. CBC and BMP in the morning. Collin Cordova D.O. DR: SHEILA JOB#: [id number] CC:
--- NOTE | 2017-10-12 23:38 | Cardiology Report ---
APPROVED REPORT EKG Measurement Heart [id number] Normal sinus rhythm Possible Left atrial enlargement Borderline ECG
[2017-10-13 00:40] VITALS: BP 152/79
[2017-10-13 04:48] VITALS: BP 138/79
[2017-10-13] MEDS: NovoLOG Insulin Flexpen SUBQ SCH ×4 (06:47→20:51)
[2017-10-13 06:55] LABS: BASOPHILS % (AUTO) 0.4 % (0.0-2.0); EOSINOPHILS % (AUTO) 0.1 % (0.0-3.0); HEMATOCRIT 41.7 % (37.0-47.0); HEMOGLOBIN 14.2 G/DL (12.0-16.0); LYMPHOCYTES % (AUTO) 28.8 % (20.0-45.0); MEAN CORPUSCULAR VOLUME 96 FL (80-99); MONOCYTES % (AUTO) 8.2 % (1.0-10.0); NEUTROPHILS % (AUTO) 62.4 % (45.0-75.0); PLATELET COUNT 221 K/UL (150-450); RED BLOOD COUNT 4.32 M/UL (4.20-5.40); RED CELL DISTRIBUTION WIDTH 14.4 % (11.6-14.8); WHITE BLOOD COUNT 10.1 K/UL (4.8-10.8)
[2017-10-13 07:44] VITALS: BP 146/75
[2017-10-13 07:46] LABS: ALANINE AMINOTRANSFERASE 150 U/L (12-78); ALBUMIN 1.7 G/DL (3.4-5.0); ALBUMIN/GLOBULIN RATIO 0.4 (1.0-2.7); ALKALINE PHOSPHATASE 859 U/L (46-116); ANION GAP 6 mmol/L (5-15); ASPARTATE AMINO TRANSFERASE 79 U/L (15-37); BILIRUBIN,TOTAL 15.5 MG/DL (0.2-1.0); BLOOD UREA NITROGEN 13 mg/dL (7-18); CALCIUM 8.9 MG/DL (8.5-10.1); CARBON DIOXIDE 26 MMOL/L (21-32); CHLORIDE 97 MMOL/L (98-107); CREATININE 0.3 MG/DL (0.55-1.30); POTASSIUM 3.7 MMOL/L (3.5-5.1); SODIUM 129 MMOL/L (136-145)
[2017-10-13 07:49] LABS: BILIRUBIN,DIRECT 12.5 MG/DL (0.0-0.3)
[2017-10-13] MEDS: Ursodiol 300mg cap ORAL SCH ×2 (09:04→17:53)
[2017-10-13] MEDS: Levofloxacin 500mg tab ORAL SCH (09:04)
[2017-10-13 11:38] VITALS: BP 152/75
--- NOTE | 2017-10-13 12:07 | GI Progress Note ---
Assessment/Plan Problems: (1) Biliary obstruction ICD Codes: K83.1 - Obstruction of bile duct SNOMED: 376378359 (2) Hyponatremia ICD Codes: E87.1 - Hypo-osmolality and hyponatremia SNOMED: 77368673 (3) Hyperglycemia ICD Codes: R73.9 - Hyperglycemia, unspecified SNOMED: 72977674 (4) Hepatitis ICD Codes: K75.9 - Inflammatory liver disease, unspecified SNOMED: 867828015 (5) LFT elevation ICD Codes: R94.5 - Abnormal results of liver function studies SNOMED: 917315817, 173131898 (6) Jaundice ICD Codes: R17 - Unspecified jaundice SNOMED: 46310329 Status: unchanged Status Narrative Discussed with Dr. Desai. Assessment/Plan severe cholestatic disease pattern, differential included >> - drug-induced, possibly due to doxycycline; - Autoimmune with noted elevated EDWARD; - IgG4 associated cholangitis versus infiltrative/granulomatous disorder versus malignancy . 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 trend LFTs prednisone 40mg daily ursodiol pain mgmt zofran prn fu labs The patient was seen and examined at bedside and all new and available data was reviewed in the patients chart. I agree with the above findings, impression and plan. (Patient seen earlier today. Signature stamp does not reflect patient encounter time.). - Daniel Desai MD Subjective Gastrointestinal/Abdominal: Reports: no symptoms Objective Last 24 Hour Vital Signs Date Time Temp Pulse Resp B/P (MAP) Pulse Ox O2 Delivery O2 Flow Rate FiO2 10/13/17 11:38 96.8 61 18 152/75 (100) 98 96.8 10/13/17 07:44 97.7 64 19 146/75 (98) 98 97.7 10/13/17 04:48 97.7 81 18 138/79 (98) 94 97.7 10/13/17 00:40 152/79 (103) 10/13/17 00:32 97.0 89 18 96 97.0 10/13/17 00:31 188/87 10/12/17 21:00 Room Air 10/12/17 19:43 97.8 86 16 96 97.8 10/12/17 18:30 70 147/77 (100) 10/12/17 16:10 187/101 10/12/17 15:55 97.9 90 20 187/101 (129) 97 97.9 Intake and Output 10/12/17 10/13/17 19:00 07:00 Intake Total 720 ml 360 ml Balance 720 ml 360 ml Intake Oral 720 ml 360 ml # Voids 3 3 # Bowel Movements 1 Laboratory Tests Test 10/13/17 05:40 White Blood Count 10.1 K/UL (4.8-10.8) Red Blood Count 4.32 M/UL (4.20-5.40) Hemoglobin 14.2 G/DL (12.0-16.0) Hematocrit 41.7 % (37.0-47.0) Mean Corpuscular Volume 96 FL (80-99) Mean Corpuscular Hemoglobin 32.8 PG (27.0-31.0) H Mean Corpuscular Hemoglobin Concent 34.0 G/DL (32.0-36.0) Red Cell Distribution Width 14.4 % (11.6-14.8) Platelet Count 221 K/UL (150-450) Mean Platelet Volume 9.2 FL (6.5-10.1) Neutrophils (%) (Auto) 62.4 % (45.0-75.0) Lymphocytes (%) (Auto) 28.8 % (20.0-45.0) Monocytes (%) (Auto) 8.2 % (1.0-10.0) Eosinophils (%) (Auto) 0.1 % (0.0-3.0) Basophils (%) (Auto) 0.4 % (0.0-2.0) Sodium Level 129 MMOL/L (136-145) L Potassium Level 3.7 MMOL/L (3.5-5.1) Chloride Level 97 MMOL/L (98-107) L Carbon Dioxide Level 26 MMOL/L (21-32) Anion Gap 6 mmol/L (5-15) Blood Urea Nitrogen 13 mg/dL (7-18) Creatinine 0.3 MG/DL (0.55-1.30) L Estimat Glomerular Filtration Rate > 60 mL/min (>60) Glucose Level 284 MG/DL (74-106) H Calcium Level 8.9 MG/DL (8.5-10.1) Total Bilirubin 15.5 MG/DL (0.2-1.0) H Direct Bilirubin 12.5 MG/DL (0.0-0.3) H Aspartate Amino Transf (AST/SGOT) 79 U/L (15-37) H Alanine Aminotransferase (ALT/SGPT) 150 U/L (12-78) H Alkaline Phosphatase 859 U/L (46-116) H Total Protein 5.6 G/DL (6.4-8.2) L Albumin 1.7 G/DL (3.4-5.0) L Globulin 3.9 g/dL Albumin/Globulin Ratio 0.4 (1.0-2.7) L Height (Feet): 5 Height (Inches): 4.00 Weight (Pounds): 160 General Appearance: WD/WN, no apparent distress, alert Cardiovascular: normal rate Respiratory/Chest: normal breath sounds, no respiratory distress Abdominal Exam: normal bowel sounds, non tender, soft Extremities: normal range of motion, non-tender Neyda Mackey NP Oct 13, 2017 12:06
--- NOTE | 2017-10-13 12:53 | Consultation ---
Consult Note Consult Note known to me fro last week's admission Patient was discharged 2 days ago from the hospital. She had rising transaminases at that time. She had anxiety and felt that she had to leave. She's not been doing well. She has difficulty ambulating at this time with bilateral leg weakness. All she has swelling in her legs. Her urine has been dark in color and her stools have been beige. She denies any fevers or chills. Her appetite has been poor but she denies vomiting or hematemesis. She denies dysuria also. The etiology of her elevated LFTs is unclear. Review of labs reveal + EBV titers. She had a biopsy while she was hospitalized. Some bruising. No confusion. No headaches. No itching skin. No chest pain or cough. She not anxious at this time. Allergies: Coded Allergies: No Known Allergies (Unverified , 10/07/17) examined data reviewed Assessment/Plan 1) Proteinuria Assessment: Bilateral pleural effusions (2) UTI (urinary tract infection) (3) Jaundice (4) CHF (congestive heart failure) cardiomyopathy Assessment: cardiomyopathy (5) LFT elevation jaundice (6) HypoNatremia (7) DM Adjust BP meds- Optimize cardiac status- GI advise- had liver Bx non conclusive Keep BS in check low dose lasix PRN 3% Saline on Actigall and prednisone 2D echo- Global left ventricular hypokinesis . Left ventricular ejection fraction estimated to be 45 %. Kidney HUNG Global left ventricular hypokinesis . Left ventricular ejection fraction estimated to be 45 %. Moderate left ventricular hypertrophy by 2-D. Bryan Scanlon MD Oct 13, 2017 12:53
[2017-10-13] MEDS ORDERED: Lisinopril 10mg tab ORAL SCH (12:56)
--- NOTE | 2017-10-13 13:43 | General Progress Note ---
Assessment/Plan Problem List: (1) Jaundice ICD Codes: R17 - Unspecified jaundice SNOMED: 72173791 (2) LFT elevation ICD Codes: R94.5 - Abnormal results of liver function studies SNOMED: 912935421, 821903307 (3) Hepatitis ICD Codes: K75.9 - Inflammatory liver disease, unspecified SNOMED: 595595190 (4) Biliary obstruction ICD Codes: K83.1 - Obstruction of bile duct SNOMED: 135497688 Status: unchanged Assessment/Plan gi f/u abx neph f/u ot pt diet cbc bmp am Subjective Constitutional: Reports: weakness Allergies: Coded Allergies: No Known Allergies (Unverified , 10/07/17) All Systems: reviewed and negative except above Subjective sleepy in bed calm Objective Last 24 Hour Vital Signs Date Time Temp Pulse Resp B/P (MAP) Pulse Ox O2 Delivery O2 Flow Rate FiO2 10/13/17 13:27 152/75 10/13/17 11:38 96.8 61 18 152/75 (100) 98 96.8 10/13/17 09:00 Room Air 10/13/17 07:44 97.7 64 19 146/75 (98) 98 97.7 10/13/17 04:48 97.7 81 18 138/79 (98) 94 97.7 10/13/17 00:40 152/79 (103) 10/13/17 00:32 97.0 89 18 96 97.0 10/13/17 00:31 188/87 10/12/17 21:00 Room Air 10/12/17 19:43 97.8 86 16 96 97.8 10/12/17 18:30 70 147/77 (100) 10/12/17 16:10 187/101 10/12/17 15:55 97.9 90 20 187/101 (129) 97 97.9 Intake and Output 10/12/17 10/13/17 19:00 07:00 Intake Total 720 ml 360 ml Balance 720 ml 360 ml Intake Oral 720 ml 360 ml # Voids 3 3 # Bowel Movements 1 Laboratory Tests 10/13/17 05:40: White Blood Count 10.1, Red Blood Count 4.32, Hemoglobin 14.2, Hematocrit 41.7, Mean Corpuscular Volume 96, Mean Corpuscular Hemoglobin 32.8H, Mean Corpuscular Hemoglobin Concent 34.0, Red Cell Distribution Width 14.4, Platelet Count 221, Mean Platelet Volume 9.2, Neutrophils (%) (Auto) 62.4, Lymphocytes (%) (Auto) 28.8, Monocytes (%) (Auto) 8.2, Eosinophils (%) (Auto) 0.1, Basophils (%) (Auto ) 0.4, Sodium Level 129L, Potassium Level 3.7, Chloride Level 97L, Carbon Dioxide Level 26, Anion Gap 6, Blood Urea Nitrogen 13, Creatinine 0.3L, Estimat Glomerular Filtration Rate > 60, Glucose Level 284H, Calcium Level 8.9, Total Bilirubin 15.5H, Direct Bilirubin 12.5H, Aspartate Amino Transf (AST/SGOT) 79H, Alanine Aminotransferase (ALT/SGPT) 150H, Alkaline Phosphatase 859H, Total Protein 5.6L, Albumin 1.7L, Globulin 3.9, Albumin/Globulin Ratio 0.4L 10/13/17 13:20: Urine Random Sodium [Pending] Height (Feet): 5 Height (Inches): 4.00 Weight (Pounds): 160 General Appearance: lethargic EENT: normal ENT inspection Neck: normal alignment Cardiovascular: normal peripheral pulses, normal rate, regular rhythm Respiratory/Chest: chest wall non-tender, lungs clear, normal breath sounds Abdomen: normal bowel sounds, non tender, soft Extremities: normal inspection Edema: no edema noted Arm (L), no edema noted Arm (R), no edema noted Leg (L), no edema noted Leg (R), no edema noted Pedal (L), no edema noted Pedal (R), no edema noted Generalized Neurologic: motor weakness Skin: normal pigmentation, warm/dry Collin Cordova DO Oct 13, 2017 13:43
--- NOTE | 2017-10-13 14:47 | Cardiac Electrophysiology PN ---
Subjective Subjective [id number] Objective Last 24 Hour Vital Signs Date Time Temp Pulse Resp B/P (MAP) Pulse Ox O2 Delivery O2 Flow Rate FiO2 10/13/17 13:27 152/75 10/13/17 11:38 96.8 61 18 152/75 (100) 98 96.8 10/13/17 09:00 Room Air 10/13/17 07:44 97.7 64 19 146/75 (98) 98 97.7 10/13/17 04:48 97.7 81 18 138/79 (98) 94 97.7 10/13/17 00:40 152/79 (103) 10/13/17 00:32 97.0 89 18 96 97.0 10/13/17 00:31 188/87 10/12/17 21:00 Room Air 10/12/17 19:43 97.8 86 16 96 97.8 10/12/17 18:30 70 147/77 (100) 10/12/17 16:10 187/101 10/12/17 15:55 97.9 90 20 187/101 (129) 97 97.9 Intake and Output 10/12/17 10/13/17 19:00 07:00 Intake Total 720 ml 360 ml Balance 720 ml 360 ml Intake Oral 720 ml 360 ml # Voids 3 3 # Bowel Movements 1 Laboratory Tests Test 10/13/17 05:40 10/13/17 13:20 White Blood Count 10.1 K/UL (4.8-10.8) Red Blood Count 4.32 M/UL (4.20-5.40) Hemoglobin 14.2 G/DL (12.0-16.0) Hematocrit 41.7 % (37.0-47.0) Mean Corpuscular Volume 96 FL (80-99) Mean Corpuscular Hemoglobin 32.8 PG (27.0-31.0) H Mean Corpuscular Hemoglobin Concent 34.0 G/DL (32.0-36.0) Red Cell Distribution Width 14.4 % (11.6-14.8) Platelet Count 221 K/UL (150-450) Mean Platelet Volume 9.2 FL (6.5-10.1) Neutrophils (%) (Auto) 62.4 % (45.0-75.0) Lymphocytes (%) (Auto) 28.8 % (20.0-45.0) Monocytes (%) (Auto) 8.2 % (1.0-10.0) Eosinophils (%) (Auto) 0.1 % (0.0-3.0) Basophils (%) (Auto) 0.4 % (0.0-2.0) Sodium Level 129 MMOL/L (136-145) L Potassium Level 3.7 MMOL/L (3.5-5.1) Chloride Level 97 MMOL/L (98-107) L Carbon Dioxide Level 26 MMOL/L (21-32) Anion Gap 6 mmol/L (5-15) Blood Urea Nitrogen 13 mg/dL (7-18) Creatinine 0.3 MG/DL (0.55-1.30) L Estimat Glomerular Filtration Rate > 60 mL/min (>60) Glucose Level 284 MG/DL (74-106) H Calcium Level 8.9 MG/DL (8.5-10.1) Total Bilirubin 15.5 MG/DL (0.2-1.0) H Direct Bilirubin 12.5 MG/DL (0.0-0.3) H Aspartate Amino Transf (AST/SGOT) 79 U/L (15-37) H Alanine Aminotransferase (ALT/SGPT) 150 U/L (12-78) H Alkaline Phosphatase 859 U/L (46-116) H Total Protein 5.6 G/DL (6.4-8.2) L Albumin 1.7 G/DL (3.4-5.0) L Globulin 3.9 g/dL Albumin/Globulin Ratio 0.4 (1.0-2.7) L Urine Random Sodium 38 mmol/L (20-110) Microbiology Date/Time Source Procedure Growth Status 10/11/17 18:06 Urine,Clean Catch Urine Culture - Final Escherichia Coli Complete Malik Mackenzie MD Oct 13, 2017 14:47
--- NOTE | 2017-10-13 15:01 | Infectious Diseases Prog Note ---
Assessment/Plan Assessment/Plan ASSESSMENT: UTI : Ecoli Dysuria, (despite of unremarkable UA) Bilateral athlete's feet/bilateral groin candidiasis Transaminitis, improving Cholestatic jaundice, status post biopsy ? etiology MRI of the abdomen 10/09/2017, limited, no biliary ductal dilatation identified , bilateral effusion. MRI of the abdomen 10/05/2017 showed contracted gallbladder, no gallstone. US of abdomen 10/04/2017, no focal hepatic mass, no cholelithiasis. Afebrile. Nl WBC CHF. History of . Diabetes. Bilateral groin candidiasis. History of recent urinary tract infection. Urine culture recently grew E. coli, Enterobacter and Enterococcus faecalis. Hepatitis panel, HIV negative. HIV No Evid of Pneum Chest x-ray 10/11/2017, mild CHF. PLAN: Change AB Rx to Amoxi d # 1 and DC Levaquin day # 2 ( Rx for DC on chart ) Cont Nizoral cream d# 2 Monitor CBC. Monitor BMP. Urine culture. Repeat hepatitis serology. Hepatitis C PCR. GI recommendations. Subjective Allergies: Coded Allergies: No Known Allergies (Unverified , 10/07/17) Subjective Afebrile Objective Vital Signs Last 24 Hour Vital Signs Date Time Temp Pulse Resp B/P (MAP) Pulse Ox O2 Delivery O2 Flow Rate FiO2 10/13/17 13:27 152/75 10/13/17 11:38 96.8 61 18 152/75 (100) 98 96.8 10/13/17 09:00 Room Air 10/13/17 07:44 97.7 64 19 146/75 (98) 98 97.7 10/13/17 04:48 97.7 81 18 138/79 (98) 94 97.7 10/13/17 00:40 152/79 (103) 10/13/17 00:32 97.0 89 18 96 97.0 10/13/17 00:31 188/87 10/12/17 21:00 Room Air 10/12/17 19:43 97.8 86 16 96 97.8 10/12/17 18:30 70 147/77 (100) 10/12/17 16:10 187/101 10/12/17 15:55 97.9 90 20 187/101 (129) 97 97.9 Height (Feet): 5 Height (Inches): 4.00 Weight (Pounds): 160 HEENT: atraumatic Respiratory/Chest: no respiratory distress Cardiovascular: regular rhythm Abdomen: non distended Microbiology Date/Time Source Procedure Growth Status 10/11/17 18:06 Urine,Clean Catch Urine Culture - Final Escherichia Coli Complete Laboratory Tests Test 10/13/17 05:40 10/13/17 13:20 White Blood Count 10.1 K/UL (4.8-10.8) Red Blood Count 4.32 M/UL (4.20-5.40) Hemoglobin 14.2 G/DL (12.0-16.0) Hematocrit 41.7 % (37.0-47.0) Mean Corpuscular Volume 96 FL (80-99) Mean Corpuscular Hemoglobin 32.8 PG (27.0-31.0) H Mean Corpuscular Hemoglobin Concent 34.0 G/DL (32.0-36.0) Red Cell Distribution Width 14.4 % (11.6-14.8) Platelet Count 221 K/UL (150-450) Mean Platelet Volume 9.2 FL (6.5-10.1) Neutrophils (%) (Auto) 62.4 % (45.0-75.0) Lymphocytes (%) (Auto) 28.8 % (20.0-45.0) Monocytes (%) (Auto) 8.2 % (1.0-10.0) Eosinophils (%) (Auto) 0.1 % (0.0-3.0) Basophils (%) (Auto) 0.4 % (0.0-2.0) Sodium Level 129 MMOL/L (136-145) L Potassium Level 3.7 MMOL/L (3.5-5.1) Chloride Level 97 MMOL/L (98-107) L Carbon Dioxide Level 26 MMOL/L (21-32) Anion Gap 6 mmol/L (5-15) Blood Urea Nitrogen 13 mg/dL (7-18) Creatinine 0.3 MG/DL (0.55-1.30) L Estimat Glomerular Filtration Rate > 60 mL/min (>60) Glucose Level 284 MG/DL (74-106) H Calcium Level 8.9 MG/DL (8.5-10.1) Total Bilirubin 15.5 MG/DL (0.2-1.0) H Direct Bilirubin 12.5 MG/DL (0.0-0.3) H Aspartate Amino Transf (AST/SGOT) 79 U/L (15-37) H Alanine Aminotransferase (ALT/SGPT) 150 U/L (12-78) H Alkaline Phosphatase 859 U/L (46-116) H Total Protein 5.6 G/DL (6.4-8.2) L Albumin 1.7 G/DL (3.4-5.0) L Globulin 3.9 g/dL Albumin/Globulin Ratio 0.4 (1.0-2.7) L Urine Random Sodium 38 mmol/L (20-110) Current Medications Medications (Trade) Dose Ordered Sig/Dutch Route PRN Reason Start Time Stop Time Status Last Admin Dose Admin Acetaminophen (Tylenol) 650 mg Q4H PRN ORAL fever 10/11/17 21:36 11/10/17 21:35 Al Hydroxide/Mg Hydroxide (Mylanta II) 30 ml Q6H PRN ORAL dyspepsia 10/11/17 21:45 11/10/17 21:44 Clonidine HCl (Catapres Tab) 0.1 mg Q6HR PRN ORAL SBP>160 10/12/17 17:00 11/11/17 16:59 10/13/17 00:31 Dextrose (Dextrose 50%) 25 ml PRN IV Hypoglycemia 10/11/17 21:45 11/10/17 21:44 Dextrose (Dextrose 50%) 50 ml PRN IV hypoglycemia 10/11/17 21:45 11/10/17 21:44 Furosemide (Lasix) 20 mg DAILY IV 10/14/17 09:00 11/13/17 08:59 Insulin Aspart (NovoLOG) BEFORE MEALS AND HS SUBQ 10/12/17 11:30 11/11/17 11:29 10/13/17 12:16 Ketoconazole (Nizoral 2% Cream) 1 applic DAILY TOPIC 10/12/17 12:00 11/11/17 11:59 10/13/17 09:04 Levofloxacin (Levaquin) 500 mg DAILY ORAL 10/12/17 11:15 10/19/17 11:14 10/13/17 09:04 Lisinopril (Zestril) 10 mg DAILY ORAL 10/14/17 09:00 11/13/17 08:59 Lorazepam (Ativan 2mg/ml 1ml) 0.5 mg Q4H PRN IV For Anxiety 10/11/17 21:45 10/18/17 21:44 Morphine Sulfate (Morphine Sulfate) 1 mg Q4H PRN IVP For Pain 10/11/17 21:45 10/18/17 21:44 10/11/17 22:27 Ondansetron HCl (Zofran) 4 mg Q6H PRN IVP Nausea & Vomiting 10/11/17 21:45 11/10/17 21:44 10/13/17 12:10 Polyethylene Glycol (Miralax) 17 gm HSPRN PRN ORAL Constipation 10/11/17 21:45 11/10/17 21:44 Prednisone (predniSONE) 40 mg DAILY ORAL 10/13/17 09:00 11/12/17 08:59 10/13/17 09:04 Ursodiol (Actigall) 300 mg TWICE A DAY ORAL 10/12/17 18:00 11/11/17 17:59 10/13/17 09:04 Zolpidem Tartrate (Ambien) 5 mg HSPRN PRN ORAL Insomnia 10/11/17 21:45 10/18/17 21:44 10/12/17 20:36 Eugenio Bee MD Oct 13, 2017 15:01
[2017-10-13 16:00] VITALS: BP 152/77
[2017-10-13 20:18] VITALS: BP 154/81
[2017-10-13] MEDS: Zolpidem 5mg tab ORAL PRN (20:52)
[2017-10-14] VITALS: BP 157/79
[2017-10-14 04:00] VITALS: BP 167/76
[2017-10-14 05:40] LABS: BASOPHILS % (AUTO) 0.8 % (0.0-2.0); EOSINOPHILS % (AUTO) 0.2 % (0.0-3.0); HEMATOCRIT 42.6 % (37.0-47.0); HEMOGLOBIN 14.2 G/DL (12.0-16.0); LYMPHOCYTES % (AUTO) 28.2 % (20.0-45.0); MEAN CORPUSCULAR VOLUME 96 FL (80-99); MONOCYTES % (AUTO) 8.3 % (1.0-10.0); NEUTROPHILS % (AUTO) 62.5 % (45.0-75.0); PLATELET COUNT 247 K/UL (150-450); RED BLOOD COUNT 4.43 M/UL (4.20-5.40); RED CELL DISTRIBUTION WIDTH 14.6 % (11.6-14.8)
[2017-10-14 05:45] LABS: AMMONIA 41 umol/L (11-32)
[2017-10-14 05:59] LABS: ALANINE AMINOTRANSFERASE 152 U/L (12-78); ALBUMIN 1.9 G/DL (3.4-5.0); ALBUMIN/GLOBULIN RATIO 0.5 (1.0-2.7); ALKALINE PHOSPHATASE 808 U/L (46-116); ANION GAP 6 mmol/L (5-15); ASPARTATE AMINO TRANSFERASE 79 U/L (15-37); BLOOD UREA NITROGEN 13 mg/dL (7-18); CARBON DIOXIDE 27 MMOL/L (21-32); CHLORIDE 95 MMOL/L (98-107); CHOLESTEROL 554 MG/DL (< 200); CREATININE 0.5 MG/DL (0.55-1.30); HDL CHOLESTEROL 13 MG/DL (40-60); POTASSIUM 3.7 MMOL/L (3.5-5.1); SODIUM 128 MMOL/L (136-145); TRIGLYCERIDES 214 MG/DL (30-150)
[2017-10-14 06:00] LABS: CREATINE KINASE 29 U/L (26-308); GAMMA GLUTAMYL TRANSPEPTIDASE 1698 U/L (5-85); PHOSPHORUS 3.6 MG/DL (2.5-4.9)
[2017-10-14 06:03] LABS: BILIRUBIN,DIRECT 11.6 MG/DL (0.0-0.3)
[2017-10-14] MEDS: NovoLOG Insulin Flexpen SUBQ SCH (06:43)
--- NOTE | 2017-10-14 07:43 | Infectious Diseases Prog Note ---
Assessment/Plan Assessment/Plan UTI : Ecoli Dysuria, (despite of unremarkable UA) Bilateral athlete's feet/bilateral groin candidiasis Transaminitis, improving Cholestatic jaundice, status post biopsy ? etiology MRI of the abdomen 10/09/2017, limited, no biliary ductal dilatation identified , bilateral effusion. MRI of the abdomen 10/05/2017 showed contracted gallbladder, no gallstone. US of abdomen 10/04/2017, no focal hepatic mass, no cholelithiasis. Afebrile. Nl WBC Mild Leukocytosis CHF. History of . Diabetes. Bilateral groin candidiasis. History of recent urinary tract infection. Urine culture recently grew E. coli, Enterobacter and Enterococcus faecalis. Hepatitis panel, HIV negative. HIV No Evid of Pneum Chest x-ray 10/11/2017, mild CHF. PLAN: Amoxi d # 2 ( Rx for DC on chart ) 10/13 SP Levaquin day # 2 Cont Nizoral cream d# 2 Monitor CBC. Monitor BMP. Urine culture. Repeat hepatitis serology. Hepatitis C PCR. GI recommendations. Subjective Allergies: Coded Allergies: No Known Allergies (Unverified , 10/07/17) Subjective Comfortable No Fevers Objective Vital Signs Last 24 Hour Vital Signs Date Time Temp Pulse Resp B/P (MAP) Pulse Ox O2 Delivery O2 Flow Rate FiO2 10/14/17 05:03 167/76 10/14/17 04:00 97.3 87 18 167/76 (106) 95 97.3 10/14/17 00:00 97.7 85 18 157/79 (105) 98 97.7 10/13/17 21:00 Room Air 10/13/17 20:18 97.1 81 20 154/81 (105) 99 97.1 10/13/17 16:00 97.3 67 18 152/77 (102) 95 97.3 10/13/17 13:27 152/75 10/13/17 11:38 96.8 61 18 152/75 (100) 98 96.8 10/13/17 09:00 Room Air 10/13/17 07:44 97.7 64 19 146/75 (98) 98 97.7 Height (Feet): 5 Height (Inches): 4.00 Weight (Pounds): 160 Objective HEENT: NCAT, MMM Respiratory/Chest: no respiratory distress Cardiovascular: regular rhythm, S1, S2 Abdomen: Soft, non distended Microbiology Date/Time Source Procedure Growth Status 10/11/17 22:00 Nasal Nares MRSA Culture - Final NO METHICILLIN RESISTANT STAPH AUREUS... Complete 10/11/17 18:06 Urine,Clean Catch Urine Culture - Final Escherichia Coli Complete Laboratory Tests Test 10/13/17 13:20 10/14/17 05:10 Urine Random Sodium 38 mmol/L (20-110) White Blood Count 12.0 K/UL (4.8-10.8) H Red Blood Count 4.43 M/UL (4.20-5.40) Hemoglobin 14.2 G/DL (12.0-16.0) Hematocrit 42.6 % (37.0-47.0) Mean Corpuscular Volume 96 FL (80-99) Mean Corpuscular Hemoglobin 32.0 PG (27.0-31.0) H Mean Corpuscular Hemoglobin Concent 33.2 G/DL (32.0-36.0) Red Cell Distribution Width 14.6 % (11.6-14.8) Platelet Count 247 K/UL (150-450) Mean Platelet Volume 8.7 FL (6.5-10.1) Neutrophils (%) (Auto) 62.5 % (45.0-75.0) Lymphocytes (%) (Auto) 28.2 % (20.0-45.0) Monocytes (%) (Auto) 8.3 % (1.0-10.0) Eosinophils (%) (Auto) 0.2 % (0.0-3.0) Basophils (%) (Auto) 0.8 % (0.0-2.0) Sodium Level 128 MMOL/L (136-145) L Potassium Level 3.7 MMOL/L (3.5-5.1) Chloride Level 95 MMOL/L (98-107) L Carbon Dioxide Level 27 MMOL/L (21-32) Anion Gap 6 mmol/L (5-15) Blood Urea Nitrogen 13 mg/dL (7-18) Creatinine 0.5 MG/DL (0.55-1.30) #L Estimat Glomerular Filtration Rate > 60 mL/min (>60) Glucose Level 287 MG/DL (74-106) H Hemoglobin A1c 7.7 % (4.3-6.0) H Uric Acid 2.1 MG/DL (2.6-7.2) L Calcium Level 9.0 MG/DL (8.5-10.1) Phosphorus Level 3.6 MG/DL (2.5-4.9) Magnesium Level 1.8 MG/DL (1.8-2.4) Total Bilirubin 14.0 MG/DL (0.2-1.0) H Direct Bilirubin 11.6 MG/DL (0.0-0.3) H Gamma Glutamyl Transpeptidase 1698 U/L (5-85) H Aspartate Amino Transf (AST/SGOT) 79 U/L (15-37) H Alanine Aminotransferase (ALT/SGPT) 152 U/L (12-78) H Alkaline Phosphatase 808 U/L (46-116) H Ammonia 41 umol/L (11-32) H Total Creatine Kinase 29 U/L (26-308) Pro-B-Type Natriuretic Peptide 2974 pg/mL (0-125) H Total Protein 5.9 G/DL (6.4-8.2) L Albumin 1.9 G/DL (3.4-5.0) L Globulin 4.0 g/dL Albumin/Globulin Ratio 0.5 (1.0-2.7) L Triglycerides Level 214 MG/DL (30-150) H Cholesterol Level 554 MG/DL (< 200) H LDL Cholesterol > 600 mg/dL (<100) H HDL Cholesterol 13 MG/DL (40-60) L Cholesterol/HDL Ratio 42.6 (3.3-4.4) H Thyroid Stimulating Hormone (TSH) 1.086 uiU/mL (0.358-3.740) Current Medications Medications (Trade) Dose Ordered Sig/Dutch Route PRN Reason Start Time Stop Time Status Last Admin Dose Admin Acetaminophen (Tylenol) 650 mg Q4H PRN ORAL fever 10/11/17 21:36 11/10/17 21:35 Al Hydroxide/Mg Hydroxide (Mylanta II) 30 ml Q6H PRN ORAL dyspepsia 10/11/17 21:45 11/10/17 21:44 Amoxicillin (Amoxil) 500 mg Q12HR ORAL 10/13/17 21:00 10/20/17 20:59 10/13/17 20:50 Clonidine HCl (Catapres Tab) 0.1 mg Q6HR PRN ORAL SBP>160 10/12/17 17:00 11/11/17 16:59 10/14/17 05:03 Dextrose (Dextrose 50%) 25 ml PRN IV Hypoglycemia 10/11/17 21:45 11/10/17 21:44 Dextrose (Dextrose 50%) 50 ml PRN IV hypoglycemia 10/11/17 21:45 11/10/17 21:44 Furosemide (Lasix) 20 mg DAILY IV 10/14/17 09:00 11/13/17 08:59 Insulin Aspart (NovoLOG) BEFORE MEALS AND HS SUBQ 10/12/17 11:30 11/11/17 11:29 10/14/17 06:43 Ketoconazole (Nizoral 2% Cream) 1 applic DAILY TOPIC 10/12/17 12:00 11/11/17 11:59 10/13/17 09:04 Lisinopril (Zestril) 10 mg DAILY ORAL 10/14/17 09:00 11/13/17 08:59 Lorazepam (Ativan 2mg/ml 1ml) 0.5 mg Q4H PRN IV For Anxiety 10/11/17 21:45 10/18/17 21:44 Morphine Sulfate (Morphine Sulfate) 1 mg Q4H PRN IVP For Pain 10/11/17 21:45 10/18/17 21:44 10/11/17 22:27 Ondansetron HCl (Zofran) 4 mg Q6H PRN IVP Nausea & Vomiting 10/11/17 21:45 11/10/17 21:44 10/13/17 12:10 Polyethylene Glycol (Miralax) 17 gm HSPRN PRN ORAL Constipation 10/11/17 21:45 11/10/17 21:44 Prednisone (predniSONE) 40 mg DAILY ORAL 10/13/17 09:00 11/12/17 08:59 10/13/17 09:04 Ursodiol (Actigall) 300 mg TWICE A DAY ORAL 10/12/17 18:00 11/11/17 17:59 10/13/17 17:53 Zolpidem Tartrate (Ambien) 5 mg HSPRN PRN ORAL Insomnia 10/11/17 21:45 10/18/17 21:44 10/13/17 20:52 Bon Dubose MD Oct 14, 2017 07:43
[2017-10-14 08:00] VITALS: BP 141/70
[2017-10-14 08:18] VITALS: BP 141/70
[2017-10-14] MEDS: Ursodiol 300mg cap ORAL SCH (08:18)
[2017-10-14] MEDS ORDERED: Lisinopril 10mg tab ORAL SCH (09:00)
--- NOTE | 2017-10-14 09:25 | General Progress Note ---
Assessment/Plan Problem List: (1) Jaundice ICD Codes: R17 - Unspecified jaundice SNOMED: 47182842 (2) LFT elevation ICD Codes: R94.5 - Abnormal results of liver function studies SNOMED: 007682389, 071417736 (3) Hepatitis ICD Codes: K75.9 - Inflammatory liver disease, unspecified SNOMED: 633571554 (4) Biliary obstruction ICD Codes: K83.1 - Obstruction of bile duct SNOMED: 781089984 Status: stable, progressing Assessment/Plan gi f/u abx neph f/u ot pt diet cbc bmp am Subjective Constitutional: Reports: weakness Allergies: Coded Allergies: No Known Allergies (Unverified , 10/07/17) All Systems: reviewed and negative except above Subjective walking calm Objective Last 24 Hour Vital Signs Date Time Temp Pulse Resp B/P (MAP) Pulse Ox O2 Delivery O2 Flow Rate FiO2 10/14/17 08:20 Room Air 10/14/17 08:18 141/70 10/14/17 05:03 167/76 10/14/17 04:00 97.3 87 18 167/76 (106) 95 97.3 10/14/17 00:00 97.7 85 18 157/79 (105) 98 97.7 10/13/17 21:00 Room Air 10/13/17 20:18 97.1 81 20 154/81 (105) 99 97.1 10/13/17 16:00 97.3 67 18 152/77 (102) 95 97.3 10/13/17 13:27 152/75 10/13/17 11:38 96.8 61 18 152/75 (100) 98 96.8 Intake and Output 10/13/17 10/14/17 19:00 07:00 Intake Total 600 ml 800 ml Balance 600 ml 800 ml Intake Oral 600 ml 800 ml # Voids 3 3 Laboratory Tests 10/13/17 13:20: Urine Random Sodium 38 10/14/17 05:10: White Blood Count 12.0H, Red Blood Count 4.43, Hemoglobin 14.2, Hematocrit 42.6 , Mean Corpuscular Volume 96, Mean Corpuscular Hemoglobin 32.0H, Mean Corpuscular Hemoglobin Concent 33.2, Red Cell Distribution Width 14.6, Platelet Count 247, Mean Platelet Volume 8.7, Neutrophils (%) (Auto) 62.5, Lymphocytes (% ) (Auto) 28.2, Monocytes (%) (Auto) 8.3, Eosinophils (%) (Auto) 0.2, Basophils ( %) (Auto) 0.8, Sodium Level 128L, Potassium Level 3.7, Chloride Level 95L, Carbon Dioxide Level 27, Anion Gap 6, Blood Urea Nitrogen 13, Creatinine 0.5#L, Estimat Glomerular Filtration Rate > 60, Glucose Level 287H, Hemoglobin A1c 7.7H , Uric Acid 2.1L, Calcium Level 9.0, Phosphorus Level 3.6, Magnesium Level 1.8, Total Bilirubin 14.0H, Direct Bilirubin 11.6H, Gamma Glutamyl Transpeptidase 1698H, Aspartate Amino Transf (AST/SGOT) 79H, Alanine Aminotransferase (ALT/SGPT ) 152H, Alkaline Phosphatase 808H, Ammonia 41H, Total Creatine Kinase 29, Pro-B- Type Natriuretic Peptide 2974H, Total Protein 5.9L, Albumin 1.9L, Globulin 4.0, Albumin/Globulin Ratio 0.5L, Triglycerides Level 214H, Cholesterol Level 554H, LDL Cholesterol > 600H, HDL Cholesterol 13L, Cholesterol/HDL Ratio 42.6H, Thyroid Stimulating Hormone (TSH) 1.086 Height (Feet): 5 Height (Inches): 4.00 Weight (Pounds): 160 General Appearance: lethargic EENT: normal ENT inspection Neck: normal alignment Cardiovascular: normal peripheral pulses, normal rate, regular rhythm Respiratory/Chest: chest wall non-tender, lungs clear, normal breath sounds Abdomen: normal bowel sounds, non tender, soft Extremities: normal inspection Edema: no edema noted Arm (L), no edema noted Arm (R), no edema noted Leg (L), no edema noted Leg (R), no edema noted Pedal (L), no edema noted Pedal (R), no edema noted Generalized Neurologic: responsive, motor weakness Skin: normal pigmentation, warm/dry Collin Cordova DO Oct 14, 2017 09:25
[2017-10-14] MEDS ORDERED: NaCl 3% 500ml 500 ML IV ONE (10:00)
--- NOTE | 2017-10-14 10:38 | General Progress Note ---
Assessment/Plan Problem List: (1) Diabetes ICD Codes: E11.9 - Type 2 diabetes mellitus without complications SNOMED: 49520335 (2) LFT elevation ICD Codes: R94.5 - Abnormal results of liver function studies SNOMED: 121664630, 850326904 (3) Jaundice ICD Codes: R17 - Unspecified jaundice SNOMED: 99003914 Assessment/Plan ?AIH vs small duct DZ responded to steroids and ursodiol improving LFTS dc on prednisone and ursodiol fu clinic in one week Subjective ROS Limited/Unobtainable: Yes Allergies: Coded Allergies: No Known Allergies (Unverified , 10/07/17) Objective Last 24 Hour Vital Signs Date Time Temp Pulse Resp B/P (MAP) Pulse Ox O2 Delivery O2 Flow Rate FiO2 10/14/17 08:20 Room Air 10/14/17 08:18 141/70 10/14/17 08:00 98.1 84 20 141/70 (93) 97 98.1 10/14/17 05:03 167/76 10/14/17 04:00 97.3 87 18 167/76 (106) 95 97.3 10/14/17 00:00 97.7 85 18 157/79 (105) 98 97.7 10/13/17 21:00 Room Air 10/13/17 20:18 97.1 81 20 154/81 (105) 99 97.1 10/13/17 16:00 97.3 67 18 152/77 (102) 95 97.3 10/13/17 13:27 152/75 10/13/17 11:38 96.8 61 18 152/75 (100) 98 96.8 Intake and Output 10/13/17 10/14/17 19:00 07:00 Intake Total 600 ml 800 ml Balance 600 ml 800 ml Intake Oral 600 ml 800 ml # Voids 3 3 Laboratory Tests 10/13/17 13:20: Urine Random Sodium 38 10/14/17 05:10: White Blood Count 12.0H, Red Blood Count 4.43, Hemoglobin 14.2, Hematocrit 42.6 , Mean Corpuscular Volume 96, Mean Corpuscular Hemoglobin 32.0H, Mean Corpuscular Hemoglobin Concent 33.2, Red Cell Distribution Width 14.6, Platelet Count 247, Mean Platelet Volume 8.7, Neutrophils (%) (Auto) 62.5, Lymphocytes (% ) (Auto) 28.2, Monocytes (%) (Auto) 8.3, Eosinophils (%) (Auto) 0.2, Basophils ( %) (Auto) 0.8, Sodium Level 128L, Potassium Level 3.7, Chloride Level 95L, Carbon Dioxide Level 27, Anion Gap 6, Blood Urea Nitrogen 13, Creatinine 0.5#L, Estimat Glomerular Filtration Rate > 60, Glucose Level 287H, Hemoglobin A1c 7.7H , Osmolality 288L, Uric Acid 2.1L, Calcium Level 9.0, Phosphorus Level 3.6, Magnesium Level 1.8, Total Bilirubin 14.0H, Direct Bilirubin 11.6H, Gamma Glutamyl Transpeptidase 1698H, Aspartate Amino Transf (AST/SGOT) 79H, Alanine Aminotransferase (ALT/SGPT) 152H, Alkaline Phosphatase 808H, Ammonia 41H, Total Creatine Kinase 29, Pro-B-Type Natriuretic Peptide 2974H, Total Protein 5.9L, Albumin 1.9L, Globulin 4.0, Albumin/Globulin Ratio 0.5L, Triglycerides Level 214H, Cholesterol Level 554H, LDL Cholesterol > 600H, HDL Cholesterol 13L, Cholesterol/HDL Ratio 42.6H, Thyroid Stimulating Hormone (TSH) 1.086 Height (Feet): 5 Height (Inches): 4.00 Weight (Pounds): 160 General Appearance: alert EENT: normal ENT inspection Neck: supple Cardiovascular: normal rate Respiratory/Chest: lungs clear Abdomen: normal bowel sounds, non tender, soft Extremities: non-tender Daniel Desai MD Oct 14, 2017 10:38
[2017-10-14] MEDS ORDERED: ACETAMINOPHEN325 M1 ORAL (11:30)
[2017-10-14] MEDS ORDERED: AMOXICILLI250 MG/5 M ORAL (11:32)
[2017-10-14] MEDS ORDERED: LISINOPRIL5 MG ORAL (11:32)
[2017-10-14] MEDS ORDERED: URSODIOL300 MG ORAL (11:33)
[2017-10-14] MEDS ORDERED: MIRALAX17 G2 ORAL (11:33)
[2017-10-14] MEDS ORDERED: AMBIEN5 MG ORAL (11:33)
[2017-10-14] MEDS ORDERED: PREDNISOLO15 MG/5 M1 ORAL (11:34)
[2017-10-14] MEDS ORDERED: CATAPRES0.1 MG ORAL (11:34)
--- NOTE | 2017-10-14 22:55 | General Progress Note ---
Assessment/Plan Status: stable, progressing Subjective Date patient seen: Oct 13, 2017 Neurologic/Psychiatric: Reports: anxiety, depressed, emotional problems Allergies: Coded Allergies: No Known Allergies (Unverified , 10/07/17) Objective Last 24 Hour Vital Signs Date Time Temp Pulse Resp B/P (MAP) Pulse Ox O2 Delivery O2 Flow Rate FiO2 10/14/17 08:20 Room Air 10/14/17 08:18 141/70 10/14/17 08:00 98.1 84 20 141/70 (93) 97 98.1 10/14/17 05:03 167/76 10/14/17 04:00 97.3 87 18 167/76 (106) 95 97.3 10/14/17 00:00 97.7 85 18 157/79 (105) 98 97.7 Intake and Output 10/13/17 10/14/17 19:00 07:00 Intake Total 600 ml 800 ml Balance 600 ml 800 ml Intake Oral 600 ml 800 ml # Voids 3 3 Laboratory Tests 10/14/17 05:10: White Blood Count 12.0H, Red Blood Count 4.43, Hemoglobin 14.2, Hematocrit 42.6 , Mean Corpuscular Volume 96, Mean Corpuscular Hemoglobin 32.0H, Mean Corpuscular Hemoglobin Concent 33.2, Red Cell Distribution Width 14.6, Platelet Count 247, Mean Platelet Volume 8.7, Neutrophils (%) (Auto) 62.5, Lymphocytes (% ) (Auto) 28.2, Monocytes (%) (Auto) 8.3, Eosinophils (%) (Auto) 0.2, Basophils ( %) (Auto) 0.8, Sodium Level 128L, Potassium Level 3.7, Chloride Level 95L, Carbon Dioxide Level 27, Anion Gap 6, Blood Urea Nitrogen 13, Creatinine 0.5#L, Estimat Glomerular Filtration Rate > 60, Glucose Level 287H, Hemoglobin A1c 7.7H , Osmolality 288L, Uric Acid 2.1L, Calcium Level 9.0, Phosphorus Level 3.6, Magnesium Level 1.8, Total Bilirubin 14.0H, Direct Bilirubin 11.6H, Gamma Glutamyl Transpeptidase 1698H, Aspartate Amino Transf (AST/SGOT) 79H, Alanine Aminotransferase (ALT/SGPT) 152H, Alkaline Phosphatase 808H, Ammonia 41H, Total Creatine Kinase 29, Pro-B-Type Natriuretic Peptide 2974H, Total Protein 5.9L, Albumin 1.9L, Globulin 4.0, Albumin/Globulin Ratio 0.5L, Triglycerides Level 214H, Cholesterol Level 554H, LDL Cholesterol > 600H, HDL Cholesterol 13L, Cholesterol/HDL Ratio 42.6H, Thyroid Stimulating Hormone (TSH) 1.086 Height (Feet): 5 Height (Inches): 4.00 Weight (Pounds): 160 General Appearance: no apparent distress, alert Rodrigo Maldonado MD Oct 14, 2017 22:55
--- NOTE | 2017-10-14 22:56 | General Progress Note ---
Assessment/Plan Assessment/Plan mdd anxiety -no meds at this time -the pt jenny not leave [facility] Subjective Date patient seen: Oct 14, 2017 Neurologic/Psychiatric: Reports: anxiety, depressed, emotional problems Allergies: Coded Allergies: No Known Allergies (Unverified , 10/07/17) Objective Last 24 Hour Vital Signs Date Time Temp Pulse Resp B/P (MAP) Pulse Ox O2 Delivery O2 Flow Rate FiO2 10/14/17 08:20 Room Air 10/14/17 08:18 141/70 10/14/17 08:00 98.1 84 20 141/70 (93) 97 98.1 10/14/17 05:03 167/76 10/14/17 04:00 97.3 87 18 167/76 (106) 95 97.3 10/14/17 00:00 97.7 85 18 157/79 (105) 98 97.7 Intake and Output 10/13/17 10/14/17 19:00 07:00 Intake Total 600 ml 800 ml Balance 600 ml 800 ml Intake Oral 600 ml 800 ml # Voids 3 3 Laboratory Tests 10/14/17 05:10: White Blood Count 12.0H, Red Blood Count 4.43, Hemoglobin 14.2, Hematocrit 42.6 , Mean Corpuscular Volume 96, Mean Corpuscular Hemoglobin 32.0H, Mean Corpuscular Hemoglobin Concent 33.2, Red Cell Distribution Width 14.6, Platelet Count 247, Mean Platelet Volume 8.7, Neutrophils (%) (Auto) 62.5, Lymphocytes (% ) (Auto) 28.2, Monocytes (%) (Auto) 8.3, Eosinophils (%) (Auto) 0.2, Basophils ( %) (Auto) 0.8, Sodium Level 128L, Potassium Level 3.7, Chloride Level 95L, Carbon Dioxide Level 27, Anion Gap 6, Blood Urea Nitrogen 13, Creatinine 0.5#L, Estimat Glomerular Filtration Rate > 60, Glucose Level 287H, Hemoglobin A1c 7.7H , Osmolality 288L, Uric Acid 2.1L, Calcium Level 9.0, Phosphorus Level 3.6, Magnesium Level 1.8, Total Bilirubin 14.0H, Direct Bilirubin 11.6H, Gamma Glutamyl Transpeptidase 1698H, Aspartate Amino Transf (AST/SGOT) 79H, Alanine Aminotransferase (ALT/SGPT) 152H, Alkaline Phosphatase 808H, Ammonia 41H, Total Creatine Kinase 29, Pro-B-Type Natriuretic Peptide 2974H, Total Protein 5.9L, Albumin 1.9L, Globulin 4.0, Albumin/Globulin Ratio 0.5L, Triglycerides Level 214H, Cholesterol Level 554H, LDL Cholesterol > 600H, HDL Cholesterol 13L, Cholesterol/HDL Ratio 42.6H, Thyroid Stimulating Hormone (TSH) 1.086 Height (Feet): 5 Height (Inches): 4.00 Weight (Pounds): 160 General Appearance: no apparent distress, alert Neurologic: oriented x 3, responsive Rodrigo Maldonado MD Oct 14, 2017 22:56
--- NOTE | 2017-10-17 09:00 | Consultation ---
DATE OF CONSULTATION: 10/13/2017 CARDIOLOGY CONSULTATION CONSULTING PHYSICIAN: Malik Mackenzie M.D. REASON FOR CONSULTATION: Management of hypertension and congestive heart failure. HISTORY OF PRESENT ILLNESS: The patient is a 62-year-old lady with history of hypertension, congestive heart failure, and cholestatic jaundice, status post biopsy as well as urinary tract infection, who was discharged just recently from the hospital for weakness. The patient was found to have transaminitis and jaundice 00:37 biopsy. The 00:42 specific etiology. The patient left against medical advice. Refused MRCP. The patient was admitted to the hospital again with itching and dysuria. She denies any chest pain or palpitation. PAST MEDICAL HISTORY: As mentioned above. ALLERGIES: She has no known drug allergies. MEDICATIONS: Per reconciliation. FAMILY HISTORY: Noncontributory. REVIEW OF SYSTEMS: Review of systems was negative other than what is mentioned in the history of present illness. PHYSICAL EXAMINATION: VITAL SIGNS: Blood pressure of 152/75, pulse is 61, respirations 18, and temperature 96.8 degrees. HEAD AND NECK: No JVD. Sclerae is icteric. LUNGS: Clear. CARDIOVASCULAR: Regular S1 and S2 with no gallop or murmur. ABDOMEN: Soft. EXTREMITIES: There is 1+ pitting edema. LABORATORY AND DIAGNOSTIC DATA: Labs showed white count 10, hemoglobin of 14, hematocrit 41.7, and platelet count of 221. Sodium is 129, potassium is 3.7, BUN of 39.3, and glucose of 284. Triglycerides 263, LDL is more than 600 and cholesterol is 527. AST 02:00 is 1.367. Total bilirubin is 18.2, 02:15 15.5, direct bilirubin of 12.5. ASSESSMENT AND PLAN: 1. Hypertension. The patient is on lisinopril 10 mg daily and Lasix 20 mg IV daily as well as p.r.n. clonidine that would be continued. 2. Obstructive jaundice. The patient is under management of Dr. Desai, 02:48 doxycycline drug abuse and is elevated. At this time, 02:56 [facility] on prednisone 40 mg daily. 3. High LDL. It is unusual, the patient's total cholesterol is 527 and more than 600 LDL. 4. Hyponatremia. Thank you very much, 03:26, for allowing me to participate in the care of this patient. Please do not hesitate to contact me for any questions regarding my evaluation. Malik Mackenzie M.D. DR: DAMON JOB#: [id number] CC:
--- NOTE | 2017-10-17 10:34 | Discharge Summary ---
Discharge Summary Discharge Summary _ DATE OF ADMISSION: 10/11/2017 DATE OF DISCHARGE: 10/14/2017 REASON FOR ADMISSION: 62 years old female with past medical history of hypertension ,diabetes , congestive heart failure ,was recently hospitalized and found to have jaundice and transaminitis of unclear etiology. During workup patient left again medical advice. Upon evaluation in emergency department blood pressure was elevated 169/76. Laboratory workup revealed no leukocytosis, stable hemoglobin and hematocrit . Glucose 233 . AST 86 , ALT 165 . Urinalysis with evidence of moderate bacteria ,+3 bilirubin . Ammonia level 45. Coagulation profile stable NA 130, K-3.3. renal parameters stable. Patient admitted with diagnoses of biliary obstruction, transaminitis, hepatitis ,jaundice, hyponatremia. CONSULTANTS: pick and shovel worker Dr. Mackenzie ID specialist Dr. Bee GI specialist Dr. Desai utility repairer Dr. Scanlon psychiatrist [facility] COURSE: Patient admitted. GI specialist started patient on prednisone and Ursodiol. LFT were closely monitored. Hepatitis panel was negative. HIV test was negative. EDWARD screen initially was negative , but at this time came up positive. Patient undergone liver biopsy on previous admission o. Pathology report was inconclusive as per GI specialist, but revealed acute biliary obstruction . 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 Abdominal ultrasound and MRI on previous admission were unremarkable . Alpha-fetoprotein was within normal limits. Initially plan was to transfer patient to a higher level of care - [facility] for further management. Unfortunately, unable to transfer. Patient fortunately responded to prednisone and Ursodiol . LFT trending down. Antiemetics provided as needed . Patient was able to tolerate diet. Immunology revealed positive EDWARD and F actin IgG antibody. According to GI specialist, patient had severe cholestatic disease pattern with differential including autoimmune hepatitis, given elevated EDWARD, drug induced hepatitis ( possibly due to doxycycline) , less likely or IgG associated cholangitis versus infiltrative/granulomatous disorder versus malignancy. Antiemetic provided as needed. Bowel regimen instituted. ID specialist followed. Patient was on antibiotics for urinary tract infection and need to complete course of antibiotics at home. Prescription provided. Patient was also on topical Nizoral cream for bilateral athlete feet and bilateral groin Candidiasis. Chest x-ray revealed no evidence of pneumonia. Pulse oximetry was stable on room air. Fine Artist followed for hyponatremia. Patient received low-dose Lasix and 3 percent of normal saline infusion. Electrolytes were closely monitored and corrected as needed. Nephrotoxins were avoided. Blood sugar was managed with sliding scale of insulin. Hemoglobin A1c 7.7 , at goal. Publications Sales Representative closely followed. Echocardiogram on previous admission revealed ejection fraction of 45% and global left ventricular hypokinesis. Patient was on anti-failure regimen as per pick and shovel worker. No evidence of CHF decompensation. Blood pressure was stable with current regimen. Lipid panel revealed elevated LDL of over 600 with total cholesterol 554, which is unusual pattern as per pick and shovel worker. Unable to start statin due to hepatitis. Patient was educated on low-fat low-cholesterol diabetic diet. Psychiatrist diagnosed patient on previous admission with a major depressive disorder and anxiety disorder. Reality orientation and supportive therapy provided. Patient clinically improved. LFT trending down. Patient was able to tolerate diet. Patient was stable for discharge home on prednisone and Ursodiol with outpatient follow-up with GI specialist next week. FINAL DIAGNOSES: Severe cholestatic disease Biliary obstruction Transaminitis Hepatitis , possible autoimmune versus small ducts disease Obstructive cholestatic jaundice Hypertension Hyperlipidemia with severely elevated LDL Hyponatremia UTI Escherichia coli Bilateral athlete foot/ bilateral groin Candidiasis CHF Diabetes mellitus Major depressive disorder Anxiety disorder DISCHARGE MEDICATIONS: See Medication Reconciliation list. DISCHARGE INSTRUCTIONS: Patient was discharged home. Follow-up with GI specialist in one week in clinic. I have been assigned to dictate discharge summary for this account. I was not involved in the patient's management. Stella Apodaca NP Oct 17, 2017 10:33
== END 2017-10-14 12:00 | disposition home or self-care (01) ==
LOC: EMR 15:58 → EDBEDREQ 16:07 → 4W 16:12 → EDBEDREQ 16:20 → 4W 20:00
DX: K75.9 Inflammatory liver disease, unspecified (principal); B37.89 Other sites of candidiasis; K83.1 Obstruction of bile duct; I11.9 Hypertensive heart disease without heart failure; E87.1 Hypo-osmolality and hyponatremia; B35.3 Tinea pedis; N39.0 Urinary tract infection, site not specified; E78.5 Hyperlipidemia, unspecified; B96.20 Unspecified Escherichia coli [E. coli] as the cause of diseases classified elsewhere; E11.9 Type 2 diabetes mellitus without complications; R74.0 Nonspecific elevation of levels of transaminase and lactic acid dehydrogenase [LDH]; F32.9 Major depressive disorder, single episode, unspecified; F41.9 Anxiety disorder, unspecified
CPT/HCPCS: 36415; 71045; 80053; 80061; 81003; 82140; 82248; 82550; 82962; 82977; 83036; 83690; 83735; 83880; 83930; 84100; 84300; 84443; 84550; 85025; 85610; 85730; 86705; 86707; 86709; 86803; 86850; 86900; 86901; 87081; 87086; 87181; 87340; 87522; 93005; 93970; 97803; 99285; J1815; J2405; J8499